=== PATIENT | female | born 1940 | race Caucasian/White ===

== ENCOUNTER → 2020-04-13 13:17 | Outpatient (BNVA) | payer MEDICARE, SELFPAY | PROVIDERS: PCP Internal Medicine; Referring Provider Internal Medicine; Visit Provider Student in an Organized Health Care Education/Training Program | DX: M32.8 Other forms of systemic lupus erythematosus (principal); R70.0 Elevated erythrocyte sedimentation rate; J84.10 Pulmonary fibrosis, unspecified; M25.50 Pain in unspecified joint | CPT/HCPCS: 99204 ==

== ENCOUNTER 2020-04-17 13:48 | Outpatient (REF) | payer MEDICARE, SELFPAY ==
--- NOTE | 2020-04-17 14:02 | XR_ITS ---
EXAMINATION: XR LUMBOSACRAL SPINE CLINICAL INFORMATION: Low back pain. COMPARISON: CT scan of the abdomen and pelvis dated 02/14/2020 TECHNIQUE: Three views of the lumbosacral spine. 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 Mild to moderate multilevel degenerative disc disease is seen, most pronounced at L3-L4 and L4-L5 without significant change. The vertebral bodies are intact. Mild to moderate multilevel marginal osteophyte formation is seen. The soft tissues are unremarkable. IMPRESSION: Transitional L5-S1 as detailed above. Mild to moderate multilevel degenerative changes. No acute abnormality or significant change.
[2020-04-17 16:55] LABS: Rheumatoid Factor < 15.0 IU/mL (<15.0)
[2020-04-19 13:11] LABS: Cyclic Citrullinated Peptide <16 UNITS
== END 2020-04-17 13:49 | disposition home or self-care (01) ==
LOC: HO.HMGCLDS 13:48
PROVIDERS: PCP Internal Medicine; Visit Provider Student in an Organized Health Care Education/Training Program
DX: M54.5 Low back pain (principal)
CPT/HCPCS: 36415; 72100; 86200; 86431

== ENCOUNTER → 2020-05-09 10:45 | Outpatient (BNVA) | payer MEDICARE, SELFPAY | PROVIDERS: PCP Internal Medicine; Referring Provider Internal Medicine; Visit Provider Student in an Organized Health Care Education/Training Program | DX: M32.8 Other forms of systemic lupus erythematosus (principal); J84.10 Pulmonary fibrosis, unspecified; M75.51 Bursitis of right shoulder; M25.50 Pain in unspecified joint | CPT/HCPCS: 99214 ==

== ENCOUNTER → 2020-06-19 10:01 | Outpatient (BNVA) | payer MEDICARE, SELFPAY | PROVIDERS: PCP Internal Medicine; Referring Provider Internal Medicine; Visit Provider Internal Medicine Cardiovascular Disease | DX: I25.10 Atherosclerotic heart disease of native coronary artery without angina pectoris (principal); I10 Essential (primary) hypertension; R06.02 Shortness of breath | CPT/HCPCS: 99212 ==

== ENCOUNTER 2020-08-08 11:33 | Outpatient (REF) | payer MEDICARE, SELFPAY ==
[2020-08-08 14:00] LABS: MANUAL DIFF FLAG NO
[2020-08-08 14:10] LABS: Basophils Absolute Auto 0.1 X10*3/uL (0.0-0.2); Basophils Percent Auto 0.7 % (0-2); Eosinophils Absolute Auto 0.4 X10*3/uL (0.0-0.4); Hematocrit 42.3 % (37-47); Hemoglobin 13.5 g/dl (12.0-16.0); Imm Gran Abs Auto 0.06 X10*3/uL (0.00-0.03); Imm Gran Pct Auto 0.5 % (0.0-0.4); Lymphocytes Absolute Auto 1.1 X10*3/uL (1.2-4.9); Lymphocytes Percent Auto 8.9 % (20-40); Mean Corpuscular HGB Conc 31.9 g/dl (31.0-35.0); Mean Corpuscular Hemoglobin 31.5 pg (27.0-33.0); Mean Corpuscular Volume 98.6 fL (80-98); Mean Platelet Volume 8.3 fL (9.4-12.3); Monocytes Absolute Auto 1.2 X10*3/uL (0.1-1.2); Monocytes Percent Auto 9.9 % (2-11); Neutrophils Absolute Auto 9.4 X10*3/uL (2.0-8.3); Platelet Count 340 X10*3/uL (160-400); Red Blood Count 4.29 X10*6/uL (4.20-5.50); Red Cell Distribution Width 13.3 % (11.0-16.0); White Blood Count 12.2 X10*3/uL (4.8-10.8)
[2020-08-08 14:25] LABS: Glucose Urine UA NEG (NEG); Leukocyte Esterase Urine NEG (NEG); Nitrite Urine NEG (NEG); PH 6.5 (5.0-8.0); Urine Blood NEG (NEG); Urine Ketones NEG (NEG); Urine Protein NEG (NEG-TRACE)
[2020-08-08 14:30] LABS: Appearance Urine CLEAR; Color Urine YELLOW
[2020-08-08 14:35] LABS: RBC Urine 0 /HPF (0); Renal Epithelial Cells Urine 1+ /LPF; Squamous Epithelial Cell Urine 1+ /LPF
[2020-08-08 15:02] LABS: Alanine Aminotransferase 11 U/L (0-31); Albumin Level 3.3 g/dL (3.5-5.0); Alkaline Phosphatase 76 U/L (39-117); Anion Gap 11 (12-20); Aspartate Amino Transferase 18 U/L (5-31); Bilirubin Total 0.4 mg/dL (0.0-1.0); Blood Urea Nitrogen 8 mg/dL (9-16); C Reactive Protein 2.28 mg/dL (< or = 0.50); Calcium 8.7 mg/dL (8.4-10.2); Carbon Dioxide 33 mmol/L (22-29); Chloride 96 mmol/L (96-108); Estimated Glomerular Filt Rate > 60; Glucose Fasting 124 mg/dL (60-99); Potassium 4.9 mmol/l (3.3-5.1); Sodium 135 mmol/L (135-145)
[2020-08-08 15:35] LABS: Erythrocyte Sedimentation Rate 38 MM/HR (0-20)
[2020-08-09 11:08] LABS: Anti DNA DS Antibody 2 IU/mL; SM/Ribonucleoprotein Ab <1.0 NEG AI (<1.0 NEG); Smith Protein <1.0 NEG AI (<1.0 NEG)
[2020-08-09 14:43] LABS: Complement C3 108 mg/dL (83-193)
== END 2020-08-08 11:34 | disposition home or self-care (01) ==
LOC: HO.LAB 11:33
PROVIDERS: PCP Internal Medicine; Visit Provider Student in an Organized Health Care Education/Training Program
DX: M32.8 Other forms of systemic lupus erythematosus (principal); J84.10 Pulmonary fibrosis, unspecified; I10 Essential (primary) hypertension; I25.10 Atherosclerotic heart disease of native coronary artery without angina pectoris; J44.9 Chronic obstructive pulmonary disease, unspecified; Z79.899 Other long term (current) drug therapy
CPT/HCPCS: 36415; 80053; 81001; 85025; 85652; 86038; 86039; 86140; 86160; 86225; 86235; 99212

== ENCOUNTER 2020-11-07 11:32 | Outpatient (REF) | payer MEDICARE, SELFPAY ==
[2020-11-07 13:02] LABS: MANUAL DIFF FLAG NO
[2020-11-07 13:08] LABS: Basophils Percent Auto 0.5 % (0-2); Eosinophils Absolute Auto 0.1 X10*3/uL (0.0-0.4); Eosinophils Percent Auto 1.3 % (0-4); Hematocrit 44.5 % (37-47); Hemoglobin 14.4 g/dl (12.0-16.0); Imm Gran Abs Auto 0.03 X10*3/uL (0.00-0.03); Imm Gran Pct Auto 0.4 % (0.0-0.4); Lymphocytes Absolute Auto 0.9 X10*3/uL (1.2-4.9); Lymphocytes Percent Auto 11.1 % (20-40); Mean Corpuscular HGB Conc 32.4 g/dl (31.0-35.0); Mean Corpuscular Hemoglobin 31.6 pg (27.0-33.0); Mean Corpuscular Volume 97.8 fL (80-98); Mean Platelet Volume 8.5 fL (9.4-12.3); Monocytes Absolute Auto 0.6 X10*3/uL (0.1-1.2); Neutrophils Absolute Auto 6.2 X10*3/uL (2.0-8.3); Neutrophils Percent Auto 78.7 % (45-73); Platelet Count 302 X10*3/uL (160-400); Red Blood Count 4.55 X10*6/uL (4.20-5.50); Red Cell Distribution Width 14.3 % (11.0-16.0); White Blood Count 7.9 X10*3/uL (4.8-10.8)
[2020-11-07 13:28] LABS: Alanine Aminotransferase 25 U/L (0-31); Albumin Level 3.2 g/dL (3.5-5.0); Alkaline Phosphatase 114 U/L (39-117); Anion Gap 11 (12-20); Aspartate Amino Transferase 43 U/L (5-31); Bilirubin Total 0.6 mg/dL (0.0-1.0); Blood Urea Nitrogen 17 mg/dL (9-16); C Reactive Protein 2.98 mg/dL (< or = 0.50); Calcium 8.9 mg/dL (8.4-10.2); Carbon Dioxide 36 mmol/L (22-29); Chloride 94 mmol/L (96-108); Estimated Glomerular Filt Rate > 60; Glucose Random 114 mg/dL (60-115); Potassium 4.5 mmol/L (3.3-5.1); Sodium 136 mmol/L (135-145); Total Protein 6.9 g/dL (6.5-8.0)
[2020-11-07 13:34] LABS: Glucose Urine UA NEG (NEG); Leukocyte Esterase Urine 2+ (NEG); Nitrite Urine NEG (NEG); Urine Blood TRACE (NEG); Urine Ketones NEG (NEG); Urine Protein 2+ MG/DL (NEG-TRACE)
[2020-11-07 13:43] LABS: Appearance Urine HAZY; Color Urine DARK YELLOW
[2020-11-07 13:46] LABS: Bacteria Urine 2+ /LPF; Mucus Urine 1+ /LPF; RBC Urine 0 /HPF (0); Squamous Epithelial Cell Urine 2+ /LPF; Triple Phosphate Crystal Urine 1+ /LPF; WBC Urine 50-75 /HPF (0-4)
[2020-11-07 14:34] LABS: Erythrocyte Sedimentation Rate 23 MM/HR (0-20)
[2020-11-08 10:27] LABS: Anti DNA DS Antibody 2 IU/mL; Scleroderma 70 Antibody <1.0 NEG AI (<1.0 NEG)
[2020-11-08 10:51] LABS: Anti-Centromere B Antibodies <1.0 NEG AI (<1.0 NEG)
[2020-11-08 13:21] LABS: Complement C3 102 mg/dL (83-193)
== END 2020-11-07 11:33 | disposition home or self-care (01) ==
LOC: HO.LAB 11:32
PROVIDERS: PCP Internal Medicine; Visit Provider Student in an Organized Health Care Education/Training Program
DX: J84.10 Pulmonary fibrosis, unspecified (principal); M32.8 Other forms of systemic lupus erythematosus; M81.0 Age-related osteoporosis without current pathological fracture; Z79.899 Other long term (current) drug therapy
CPT/HCPCS: 36415; 80053; 81001; 83520; 85025; 85652; 86038; 86140; 86160; 86225; 86235; 99212

== ENCOUNTER 2020-12-07 12:10 | Inpatient (IN) | payer MEDICARE, SELFPAY ==
[2020-12-07] VITALS (23 sets, daily range): BP systolic 87–131; BP diastolic 30–71; PULSE 32–76; RESP 9–17; TEMP 35.3–36.4; O2SAT 83–100; BMI 25.2; BMI 29.3
--- NOTE | ~2020-12-07 | XR_ITS ---
EXAMINATION: XR CHEST CLINICAL INFORMATION: Line placement COMPARISON: 12/07/2020 TECHNIQUE: Frontal view of the chest was obtained. FINDINGS: There is a new right internal jugular central venous catheter which terminates near the cavoatrial junction. Cardiac leads overlie the chest. Lung volumes are low. Bilateral diffuse airspace opacities are seen, similar to prior. Small pleural effusions. No pneumothorax. Cardiomediastinal silhouette is unchanged. XR/XR chest 1V IMPRESSION: There is a new right internal jugular central venous catheter terminating near the cavoatrial junction. No pneumothorax. Similar appearance of the lungs with diffuse bilateral opacities.
--- NOTE | ~2020-12-07 | XR_ITS ---
EXAMINATION: XR CHEST CLINICAL INFORMATION: Hypoxia COMPARISON: Previous chest x-ray most recent 12/10/[address] most recent 12/07/2020 TECHNIQUE: Frontal view of the chest was obtained. FINDINGS: The cardiac and mediastinal contours are stable. The lung volumes are low. There are increased interstitial markings suggestive of interstitial lung disease. This does not appear appreciably changed from previous exams. There are surgical clips seen in the left upper lung. There is blunting of both costophrenic angles laterally questionable for small bilateral pleural effusions. There is no pneumothorax. There is a right jugular line with tip projecting over the caval atrial junction. There are surgical clips in the right lateral neck. There are degenerative changes and scoliosis of the spine. XR/XR chest 1V IMPRESSION: Low lung volumes. Interstitial lung disease. No change from previous exams.
--- NOTE | ~2020-12-07 | US_ITS ---
EXAMINATION: US VENOUS ULTRASOUND WITH DOPPLER LOWER EXTREMITY, BILATERAL CLINICAL INFORMATION: Swelling COMPARISON: None TECHNIQUE: Ultrasound of the deep veins is performed from the hip to the calf with compression sonography and color and pulse Doppler assessment. Spectral analysis with color-flow imaging is performed. Exam was performed portably in the ICU. Exam is limited due to swelling. FINDINGS: RIGHT: There is normal venous compression and respiratory variation and augmented flow. The visualized common femoral vein, superficial femoral vein, profunda femoral vein, and popliteal vein shows no evidence of deep venous thrombosis. The right calf veins are not visualized. There is no significant popliteal fossa cyst. LEFT: There is normal venous compression and respiratory variation and augmented flow. The visualized common femoral vein, superficial femoral vein, profunda femoral vein, popliteal vein, and the left posterior tibial vein shows no evidence of deep venous thrombosis. The left peroneal vein is not visualized. There is no significant popliteal fossa cyst. If the patient's symptoms persist, followup ultrasound in 5 days 7 days might be of value to exclude proximal propagation from a non-visualized calf vein. US/US venous duplex LE BI IMPRESSION: Limited exam. No DVT demonstrated in the bilateral lower extremity. The right posterior tibial and peroneal veins and left peroneal vein in the calves were not visualized.
--- NOTE | ~2020-12-07 | CT_ITS ---
EXAMINATION: CT HEAD WITHOUT CONTRAST CLINICAL INFORMATION: Weakness COMPARISON: CTA head and neck 01/12/2019, CT head noncontrast 01/06/2020 TECHNIQUE: Contiguous axial imaging was performed from the skull base to vertex without intravenous administration of contrast. Additional 2-D coronal and sagittal reformatted images are generated on the CT workstation and uploaded to PACS. This CT examination was performed using dose optimization techniques as appropriate, variously including the following: *Automated exposure control *Adjustment of mA and/or kV according to patient size (this includes techniques or standardized protocols for targeted exams where dose is matched to indication/reason for exam; i.e. extremities or head) *Use of iterative reconstruction technique DLP: 643 mGy-cm FINDINGS: There is no intracranial hemorrhage, hematoma, or extra-axial fluid collection. The ventricles are normal in size. There is no hydrocephalus, edema, or mass effect. There is periventricular white matter gliosis is again noted consistent with small vessel ischemic changes. There is no mass effect or edema. There is no visible acute territorial infarct or mass lesion. The calvarium appears intact. There is no pneumocephalus or orbital emphysema. The visualized sinuses and middle ears and mastoid air cells show no significant mucosal thickening. There are no air-fluid levels. CT/CT head/brain wo con IMPRESSION: No acute intracranial abnormality.
--- NOTE | ~2020-12-07 | XR_ITS ---
EXAMINATION: XR CHEST CLINICAL INFORMATION: Shortness breath COMPARISON: February 14, 2020 and studies dating back to October 13, 2015 TECHNIQUE: 2 views of the chest were obtained. FINDINGS: There are again noted to be regions of chronic interstitial disease and scarring bilaterally without significant change from previous study of February 14, 2020. Pleural parenchymal disease is seen at the lung bases with no definite new large pleural effusion. No pneumothorax. Patient status post right neck surgery as well as left upper lobe surgery. XR/XR chest 2V IMPRESSION: Diffuse lung disease similar to appearance to previous study representing chronic interstitial lung disease and scarring. Superimposed region of acute disease not excluded.
--- NOTE | ~2020-12-07 | CT_ITS ---
EXAMINATION: CT ANGIOGRAM OF THE CHEST WITH AND WITHOUT CONTRAST (CT PULMONARY ANGIOGRAM FOR PE) CLINICAL INFORMATION: Reason for Exam r/o pe, sob, hypoxia COMPARISON: None TECHNIQUE: Prior to contrast administration, noncontrast localization images were obtained. Subsequently, multidetector volumetric imaging was performed from the thoracic inlet to below the diaphragms following the administration of 80 mL Omnipaque 350 intravenous contrast. No contrast reaction reported Sagittal, coronal, and MIP oblique sagittal reformatted images were obtained on the CT workstation, uploaded to PACS, and reviewed. This CT examination was performed using dose optimization techniques as appropriate, variously including the following: *Automated exposure control *Adjustment of mA and/or kV according to patient size (this includes techniques or standardized protocols for targeted exams where dose is matched to indication/reason for exam; i.e. extremities or head) *Use of iterative reconstruction technique Total exam dose-length product 393 mGy-cm FINDINGS: QUALITY OF STUDY/CONTRAST BOLUS: Satisfactory. PULMONARY ARTERIES: No central or segmental pulmonary emboli. THORACIC AORTA: No aneurysm or dissection. LUNG: The lungs are emphysematous with diffuse patchy groundglass opacity seen throughout both lungs with increased interstitial thickening and clear chronic interstitial edema, scarring. There is honeycombing visualized in both lower lobes. Superimposed pneumonitis cannot be excluded. These findings have progressed since 02/14/2020 PLEURA: There is moderate right and small left pleural effusion. MEDIASTINUM: The heart size is enlarged. No pericardial effusion. No hilar or mediastinal lymphadenopathy. No evidence of septal bowing or right heart strain. CHEST WALL/AXILLA: No axillary or internal mammary lymphadenopathy. OSSEOUS STRUCTURES: No acute or suspicious osseous abnormality. UPPER ABDOMEN: Unremarkable. No reflux of contrast into the hepatic veins to suggest elevated right heart pressures. CT/CT angio chest PE protocol IMPRESSION: No evidence of PE. Emphysema with chronic interstitial thickening unchanged to previous exam from 2019. There is diffuse groundglass opacity likely superimposed inflammatory infectious etiology. Interstitial pneumonitis is not excluded. There is a moderate right and small to moderate left pleural effusion. VTE: Negative
--- NOTE | ~2020-12-07 | XR_ITS ---
EXAMINATION: XR CHEST CLINICAL INFORMATION: SOB COMPARISON: Chest 12/08/2020 TECHNIQUE: Frontal view of the chest was obtained. FINDINGS: The lungs are hypoexpanded with diffuse bilateral patchy opacities. In addition there is bibasilar haziness question effusion or pleural thickening. There are postsurgical sutures left upper lobe and ping in the right neck. Heart size is normal. Pulmonary vascularity is normal. A right jugular central catheter overlies the atriocaval junction. No gross bony abnormality. XR/XR chest 1V IMPRESSION: Diffuse bilateral opacities, bibasilar haziness and right central catheter tip is stable and unchanged Some postsurgical changes are stable as well.
--- NOTE | 2020-12-07 12:24 | ECG_ITS ---
Test Reason : WEAKNESS Blood Pressure : / mmHG Vent. 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
--- NOTE | 2020-12-07 12:25 | ED.GENADULT ---
HPI - General Adult General Chief complaint: Weakness <Mj Haile NP - Last Filed: 12/07/20 19:16> Stated complaint: WEAKNESS <Mj Haile NP - Last Filed: 12/07/20 19:16> Time Seen by Provider: 12/07/20 12:24 <Mj Haile NP - Last Filed: 12/07/20 19:16> Source: EMS <Mj Haile NP - Last Filed: 12/07/20 19:16> Mode of arrival: EMS <Mj Haile NP - Last Filed: 12/07/20 19:16> Limitations: no limitations <Mj Haile NP - Last Filed: 12/07/20 19:16> History of Present Illness HPI narrative: 80-year-old female with a past medical history of pulmonary fibrosis, SLE, Raynaud's disease, aortic stenosis, coronary artery disease being medically managed only, COPD seizure disorder, HTN, HLD, OA here with complaints of generalized weakness for the last week with acute on chronic shortness of breath. She has a cough which he tells me is chronic. No fevers, chills or chest pain. She does feel that she has some swelling in both legs but denies any weight gain. On arrival RA saturation 83%. Of note, patient has significant CAD not amenable to stenting followed by Dr Escobar at [facility]. <Mj Haile NP - Last Filed: 12/07/20 19:16> Onset (ago): week(s) <Mj Haile NP - Last Filed: 12/07/20 19:16> Related Data Home medications: Home Medications Medication Instructions Recorded Confirmed aspirin 81 mg tablet,delayed 81 mg PO DAILY 04/12/20 12/07/20 release loratadine 10 mg tablet 10 mg PO DAILY 04/12/20 12/07/20 metoprolol succinate 100 mg 100 mg PO DAILY 04/12/20 12/07/20 tablet,extended release 24 hr isosorbide mononitrate 60 mg 60 mg PO DAILY tab 04/13/20 12/07/20 tablet,extended release 24 hr fluticasone fur. 100 mcg-umeclid 1 inh INHALATION DAILY 10/12/20 05/27/21 62.5 mcg-vilant 25 mcg inhalat.powder phenobarbital 100 mg tablet 100 mg PO BEDTIME 05/09/20 12/07/20 albuterol sulfate 2.5 mg INHALATION TID PRN 12/07/20 12/07/20 atorvastatin 80 mg PO BEDTIME 12/07/20 12/07/20 benzonatate 1 cap PO TID PRN 12/07/20 12/07/20 ezetimibe [Zetia] 10 mg PO BEDTIME 12/07/20 12/07/20 gabapentin 100 mg PO TID 12/07/20 12/07/20 meclizine [Dramamine Less Drowsy] 25 mg PO DAILY PRN 12/07/20 12/07/20 Previous Rx's Medication Instructions Recorded fluticasone propionate 50 1 spray INTRANASAL DAILY #16 g 09/21/20 mcg/actuation nasal spray,suspension ranolazine 500 mg tablet,extended 1,000 mg PO BID 90 Days #360 tab 09/21/20 release,12 hr albuterol sulfate 90 mcg/actuation 2 inh INHALATION Q4-6H PRN #1 ea 12/05/20 breath activated powder inhaler omeprazole magnesium 20 mg 20 mg PO DAILY #90 cap 12/05/20 capsule,delayed release <Mj Haile NP - Last Filed: 12/07/20 19:16> Allergies/adverse reactions: Allergies Allergy/AdvReac Type Severity Reaction Status Date / Time morphine [MORPHINE] Allergy Severe NAUSEA & Verified 11/07/20 11:39 VOMITING, vomiting <Mj Haile NP - Last Filed: 12/07/20 19:16> Review of Systems Review of Systems: Yes all other systems are reviewed and are negative <Mj Haile NP - Last Filed: 12/07/20 19:16> Constitutional: Constitutional: Reports no additional constitutional complaints, Denies body ache(s), Denies chills, Denies fever(s), Denies headache(s) and Reports weakness <Mj Haile NP - Last Filed: 12/07/20 19:16> Eyes: Eyes: Reports no additional eye complaints and Denies change in vision <YOLIS Michelle Last Filed: 12/07/20 19:16> ENT: Reports system reviewed and no additional complaints, except as documented, Denies dizziness, Denies headache(s), Denies nasal congestion, Denies nasal discharge and Denies neck pain <Mj Haile NP - Last Filed: 12/07/20 19:16> Cardiovascular: Cardiovascular: Reports no additional cardiovascular complaints, Denies chest pain, Denies leg edema and Reports dyspnea <Mj Haile NP - Last Filed: 12/07/20 19:16> Respiratory: Respiratory: Reports no additional respiratory complaints, Reports cough and Reports dyspnea <Mj Haile NP - Last Filed: 12/07/20 19:16> Gastrointestinal: Gastrointestinal: Reports no additional gastrointestinal complaints, Denies abdominal pain, Denies diarrhea, Denies nausea and Denies vomiting <Mj Haile NP - Last Filed: 12/07/20 19:16> Genitourinary: Genitourinary: Reports no additional female genitourinary complaints and Denies urinary incontinence <Mj Haile NP - Last Filed: 12/07/20 19:16> Musculoskeletal: Musculoskeletal: Reports no additional musculoskeletal complaints, Denies back pain, Denies arthralgias, Denies joint swelling, Denies neck pain, Denies numbness and Denies tingling <Mj Haile NP - Last Filed: 12/07/20 19:16> Integumentary/Breasts: Skin/Breast: Reports system reviewed and no additional complaints, except as docu and Denies rash <Mj Haile NP - Last Filed: 12/07/20 19:16> Neurologic: Reports system reviewed and no additional complaints, except as documented, Denies Abnormal speech present, Denies dizziness, Denies headache(s), Denies numbness, Denies tingling and Reports weakness <Mj Haile NP - Last Filed: 12/07/20 19:16> PMFSH Past Medical History Medical History: Medical History Aortic stenosis CAD (coronary artery disease) Chronic stable angina COPD (chronic obstructive pulmonary disease) Epilepsy HTN (hypertension) Hypercholesterolemia Interstitial lung disease Osteoarthritis Raynauds phenomenon Squamous carcinoma Stenosis of right carotid artery <Mj Haile NP - Last Filed: 12/07/20 19:16> Surgical History: Surgical History H/O colonoscopy History of ankle surgery History of bunionectomy History of cardiac cath History of carotid endarterectomy <Mj Haile NP - Last Filed: 12/07/20 19:16> Family History Family History: Family History Father COPD (chronic obstructive pulmonary disease) CVD (cardiovascular disease) Mother ESRD (end stage renal disease) CVD (cardiovascular disease) Brother No problems noted. Brother No problems noted. Daughter No problems noted. Son No problems noted. Sister No problems noted. <jM Haile NP - Last Filed: 12/07/20 19:16> Social History Social History: Social History Housing: House Are you a primary vp care management to a significant other at home: No Do you presently have visiting nurse or other home services: No Alcohol intake: never Patient Tobacco Use Status: Never used Tobacco Second Hand Smoke Exposure: Yes Use of substances other than those prescribed or required for medical reasons: No Advance Directives: No Advance Directives Information Provided: Yes Current occupational status: retired Gender identity: female <Mj Haile NP - Last Filed: 12/07/20 19:16> Physical Exam Vital Signs: Vital Signs: Last Vital Signs Temp 95.7 F L 12/07/20 19:03 Pulse 32 L 12/07/20 19:13 Resp 14 12/07/20 19:03 BP 88/32 L 12/07/20 19:13 Pulse Ox 100 12/07/20 19:03 Body Mass Index 25.2 <Mj Haile NP - Last Filed: 12/07/20 19:16> Vital Signs: Last Vital Signs Temp 95.7 F L 12/07/20 19:03 Pulse 32 L 12/07/20 19:13 Resp 14 12/07/20 19:03 BP 88/32 L 12/07/20 19:13 Pulse Ox 100 12/07/20 19:03 Body Mass Index 25.2 <Kavon Barksdale MD - Last Filed: 12/07/20 19:07> Const: Other: lethargic, rouses to verbal <Mj Haile NP - Last Filed: 12/07/20 19:16> Orientation/consciousness: patient oriented x3 <Mj Haile NP - Last Filed: 12/07/20 19:16> Limitations: no limitations <Mj Haile NP - Last Filed: 12/07/20 19:16> HENMT: Head: Yes normal to inspection <Mj Haile NP - Last Filed: 12/07/20 19:16> Ears: hearing grossly normal bilaterally <Mj Haile NP - Last Filed: 12/07/20 19:16> General nose exam: Normal external nose present <Mj Haile NP - Last Filed: 12/07/20 19:16> Face and sinus: Yes normal facial exam <Mj Haile NP - Last Filed: 12/07/20 19:16> Mouth: Normal oral and palatal mucosa present <Mj Haile NP - Last Filed: 12/07/20 19:16> Throat: Yes posterior oropharynx normal <Mj Haile NP - Last Filed: 12/07/20 19:16> Eyes: General: appearance normal, both eyes and all related structures <Mj Haile NP - Last Filed: 12/07/20 19:16> Pupils: Equal, round and reactive pupils present <Mj Haile NP - Last Filed: 12/07/20 19:16> Neck: Neck: Yes normal visual inspection <Mj Haile NP - Last Filed: 12/07/20 19:16> Chest: Chest palpation & inspection: normal inspection of the chest <Mj Haile NP - Last Filed: 12/07/20 19:16> Resp: Other: Coarse breath sounds throughout all chavez <Mj Haile NP - Last Filed: 12/07/20 19:16> Effort & Inspection: normal respiratory effort <Mj Haile NP - Last Filed: 12/07/20 19:16> Cardio: Rate: regular rate <Mj Haile NP - Last Filed: 12/07/20 19:16> Rhythm: regular rhythm <Mj Haile NP - Last Filed: 12/07/20 19:16> Peripheral pulses: Peripheral pulses 2+ throughout <Mj Haile [employer] - Last Filed: 12/07/20 19:16> GI: Inspection: Yes normal to inspection <Mj Haile NP - Last Filed: 12/07/20 19:16> Palpation (GI): Soft to palpation and nontender <Mj Haile [employer] - Last Filed: 12/07/20 19:16> Auscultation: normal bowel sounds <Mj Haile NP - Last Filed: 12/07/20 19:16> Back/Spine/Pelvis: Thoracic/Lumbar Spine: thoracic and lumbar spine normal to inspection <Mj Haile [employer] - Last Filed: 12/07/20 19:16> Skin: General skin exam: no rashes or lesions noted <Mj Haile NP - Last Filed: 12/07/20 19:16> Neuro: General: patient oriented x3, no focal motor deficits and normal sensation to monofilament <Mj Haile NP - Last Filed: 12/07/20 19:16> Cranial nerves: Yes Equal, round and reactive pupils present <Mj Haile NP - Last Filed: 12/07/20 19:16> Cognition (Neuro): normal cognition <Mj Haile NP - Last Filed: 12/07/20 19:16> Speech: No Abnormal speech present <Mj Haile NP - Last Filed: 12/07/20 19:16> Gait exam (Neuro): Normal gait present <Mj Haile NP - Last Filed: 12/07/20 19:16> Motor exam (neuro): 5/5 motor strength present throughout <Mj Haile NP - Last Filed: 12/07/20 19:16> Extrem: Other: Fingers and toes consistent with Raynaud's disease Patient has some lower extremity swelling which is nonpitting <Mj Haile NP - Last Filed: 12/07/20 19:16> General: Yes normal to inspection and Yes no calf tenderness <Mj Haile NP - Last Filed: 12/07/20 19:16> Course Course Course Narrative: 72-year-old female here with generalized weakness, acute on chronic shortness of breath the last week. On arrival she is noted to be hypoxic with room air saturation of 83%. Coarse breath sounds throughout. Lethargic but oriented x 3, following commands with no overt neuro deficits. Will need labs, chest x-ray, EKG, CT head. 1600-Called into the room by nursing as patient was more lethargic with oxygen saturations decreasing to 89% on 3L NC. Having difficulty obtaining labs per nursing. Went to see the patient. She is lethargic but does follow commands and is able to tell me who she is and where she is. She is profoundly weak with a temp of 95.8 and very lethargic. Checked BG and hypoglycemic 41. Respiratory at bedside to obtain ABG. Nursing to straight cath urine. Multiple attempts by myself and Dr Ferreira to obtain peripheral IV access as well as an EJ but unsuccessful. Able to obtain ultrasound IV to the left AC and labs were drawn and sent. Given 2 amps of dextrose, calcium gluconate 2gIV, gentle hydration d/t concern for fluid overload w/crackles, hypoxia, pedal edema. LOW BP not from infection but multifactorial from dehydration, hypoglycemia. Oxygen saturation improved on 100% NRB. Mental status improved with blood glucose improving s/p dextrose. ABG c/w with metabolic acidosis which is c/w with acute on chronic hypercarbia with hypoxic respiratory failure. Attempting to contact family to determine code status. 1625-At this time infection is suspected. Blood cultures and lactic acid have been sent. Antibiotics ordered. Dr Garcia from ICU at bedside to evaluate patient. Bedside US done. Recommended placing central line for dopamine for intropic effects as patient is bradycardic 54 likely secondary to metoprolol. Will need CTA to r/o PE if renal function allows, bilateral venous US. 1645-Daughter Christopher at the bedside who signed consent form for central line placement. Verbal confirmation from family. Central line placed by Dr Barksdale at the bedside. Daughter tells me she believes the patient is a DNR/DNI but does not have MOLST. who lives with the patient but what sounds like has underlying dementia wishes patient to be full code. The daughter tells me she needs to speak to her brother and father together in conjunction with her mom to make a decision about advance directives. Unfortunately, they are unclear even with who the health care proxy is. 1745-Brought direct to CT with nursing and Dr Garcia. 1800-Brought back to room. Dr Hu accepting patient to ICU. 1900-Signed MOLST for DNR/DNI after verbal discussion with HCP and daughter christopher. They are aware patient is critically ill. <Mj Haile NP - Last Filed: 12/07/20 19:16> Procedures Central Line Placement Right IJ: Time Out Performed: Yes <Kavon Barksdale MD - Last Filed: 12/07/20 19:07> Patient Placed on Monitor/Pulse Ox: Yes <Kavon Barksdale MD - Last Filed: 12/07/20 19:07> Prep: mask, gown and gloves <Kavon Barksdale MD - Last Filed: 12/07/20 19:07> Central Line Prep: Chlorhexidine scrub and sterile drapes applied <Kavon Barksdale MD - Last Filed: 12/07/20 19:07> Local Anesthetic: lidocaine 1% <Kavon Barksdale MD - Last Filed: 12/07/20 19:07> Amount of anesthesia used (mL): 2 <Kavon Barksdale MD - Last Filed: 12/07/20 19:07> Ultrasound Used for Placement: Yes <aKvon Barksdale MD - Last Filed: 12/07/20 19:07> Central Line Lumen Inserted: single <Kavon Barksdale MD - Last Filed: 12/07/20 19:07> Post Procedure: good blood return, all ports aspirated, flushed, capped and sterile dressing applied <Kavon Barksdale MD - Last Filed: 12/07/20 19:07> Post Procedure X-Ray: other (Patient needed CT angio of the chest for rule out PE, the catheter position in satisfactory position.) <Kavon Barksdale MD - Last Filed: 12/07/20 19:07> Patient Tolerated Procedure: well <Kavon Barksdale MD - Last Filed: 12/07/20 19:07> Complications: none <Kavon Barksdale MD - Last Filed: 12/07/20 19:07> Medical Decision Making Medical Records Medical records reviewed: Yes I reviewed the patient's medical records. <Mj Haile NP - Last Filed: 12/07/20 19:16> Lab Data Lab results reviewed: Yes I reviewed the patient's lab results. <Mj Haile NP - Last Filed: 12/07/20 19:16> Result diagrams: : 12/07/20 12:53 12/07/20 16:22 <Mj Haile NP - Last Filed: 12/07/20 19:16> Labs: Lab Results 12/07/20 12/07/20 12/07/20 Range/Units 12:46 12:52 12:53 WBC 13.0 H (4.8-10.8) X10*3/uL RBC 4.87 (4.20-5.50) X10*6/uL Hgb 15.7 (12.0-16.0) g/dl Hct 47.1 H (37-47) % MCV 96.7 (80-98) fL MCH 32.2 (27.0-33.0) pg MCHC 33.3 (31.0-35.0) g/dl RDW 14.6 (11.0-16.0) % Plt Count 284 (160-400) X10*3/uL MPV 9.4 (9.4-12.3) fL Immature Gran % (Auto) 0.9 H (0.0-0.4) % Neut % (Auto) 80.9 H (45-73) % Lymph % (Auto) 6.6 L (20-40) % Florence % (Auto) 11.3 H (2-11) % Eos % (Auto) 0.0 (0-4) % Baso % (Auto) 0.3 (0-2) % Lymph # (Auto) 0.9 L (1.2-4.9) X10*3/uL Florence # (Auto) 1.5 H (0.1-1.2) X10*3/uL Eos # (Auto) 0.0 (0.0-0.4) X10*3/uL Baso # (Auto) 0.0 (0.0-0.2) X10*3/uL Abs Immat Gran (auto) 0.12 H (0.00-0.03) X10*3/uL Absolute Neuts (auto) 10.5 H (2.0-8.3) X10*3/uL Absolute Nucleated RBC 0.000 (0.0-0.012) X10*3/uL Nucleated RBC % (auto) 0.0 (0.0-0.2) /100WBC PT (10.8-13.0) SEC INR (0.9-1.1) D-Dimer NG/ML O2 Saturation % ABG pH at Pt Temp (7.35-7.45) ABG pH (Temp Correct) (7.35-7.45) ABG pCO2 at Pt Temp (32-45) mmHg ABG pCO2 (Temp Corrct (32-45) mmHg ABG pO2 at Pt Temp (83-108) mmHg ABG pO2 (Temp Correct (83-108) ABG HCO3 (22-26) mmol/L ABG Base Excess (Actual) mmol/L VBG pH (7.32-7.43) VBG pCO2 mmHg VBG pO2 mmHg VBG HCO3 (22-26) mmol/L VBG O2 Saturation % VBG Base Excess mmol/L Sodium (135-145) mmol/L Potassium (3.3-5.1) mmol/L Chloride (96-108) mmol/L Carbon Dioxide (22-29) mmol/L Anion Gap (12-20) BUN (9-16) mg/dL Creatinine (0.5-1.4) mg/dL Estim Creat Clear Calc Estimated GFR POC Glucose (60-115) mg/dL Random Glucose (60-115) mg/dL Lactic Acid 2.5 H* (0.5-2.0) mmol/L Lactic Acid Fup @ 2Hr (0.5-2.0) mmol/L Calcium (8.4-10.2) mg/dL Magnesium (1.6-2.6) mg/dL Total Bilirubin (0.0-1.0) mg/dL Direct Bilirubin (0.0-0.5) mg/dL AST (5-31) U/L ALT (0-31) U/L Alkaline Phosphatase (39-117) U/L Total Creatine Kinase (26-140) U/L Troponin I High Sens (<3.5-17.0) ng/L B-Natriuretic Peptide (<100) pg/mL Total Protein (6.5-8.0) g/dL Albumin (3.5-5.0) g/dL Urine Color Urine Appearance Urine pH (5.0-8.0) Ur Specific [place] (1.005-1.025) Urine Protein (NEG-TRACE) MG/DL Urine Glucose (UA) (NEG) MG/DL Urine Ketones (NEG) MG/DL Urine Blood (NEG) Urine Nitrite (NEG) Ur Leukocyte Esterase (NEG) Urine RBC (0) /HPF Urine WBC (0-4) /HPF Ur Squamous Epith Cells /LPF Urine Bacteria /LPF Hyaline Casts /LPF Urine Mucus /LPF COVID-19 ([facility]ASWANT) Negative (Negative) COVID-19 Clin Com See Note 12/07/20 12/07/20 12/07/20 Range/Units 12:53 15:59 16:03 WBC (4.8-10.8) X10*3/uL RBC (4.20-5.50) X10*6/uL Hgb (12.0-16.0) g/dl Hct (37-47) % MCV (80-98) fL MCH (27.0-33.0) pg MCHC (31.0-35.0) g/dl RDW (11.0-16.0) % Plt Count (160-400) X10*3/uL MPV (9.4-12.3) fL Immature Gran % (Auto) (0.0-0.4) % Neut % (Auto) (45-73) % Lymph % (Auto) (20-40) % Florence % (Auto) (2-11) % Eos % (Auto) (0-4) % Baso % (Auto) (0-2) % Lymph # (Auto) (1.2-4.9) X10*3/uL Florence # (Auto) (0.1-1.2) X10*3/uL Eos # (Auto) (0.0-0.4) X10*3/uL Baso # (Auto) (0.0-0.2) X10*3/uL Abs Immat Gran (auto) (0.00-0.03) X10*3/uL Absolute Neuts (auto) (2.0-8.3) X10*3/uL Absolute Nucleated RBC (0.0-0.012) X10*3/uL Nucleated RBC % (auto) (0.0-0.2) /100WBC PT (10.8-13.0) SEC INR (0.9-1.1) D-Dimer NG/ML O2 Saturation 99.0 % ABG pH at Pt Temp 7.28 L (7.35-7.45) ABG pH (Temp Correct) 7.29 L (7.35-7.45) ABG pCO2 at Pt Temp 66 H* (32-45) mmHg ABG pCO2 (Temp Corrct 65 H* (32-45) mmHg ABG pO2 at Pt Temp 171 H (83-108) mmHg ABG pO2 (Temp Correct 168 H (83-108) ABG HCO3 31 H (22-26) mmol/L ABG Base Excess (Actual) 2.7 mmol/L VBG pH (7.32-7.43) VBG pCO2 mmHg VBG pO2 mmHg VBG HCO3 (22-26) mmol/L VBG O2 Saturation % VBG Base Excess mmol/L Sodium (135-145) mmol/L Potassium (3.3-5.1) mmol/L Chloride (96-108) mmol/L Carbon Dioxide (22-29) mmol/L Anion Gap (12-20) BUN (9-16) mg/dL Creatinine (0.5-1.4) mg/dL Estim Creat Clear Calc Estimated GFR POC Glucose 41 L* (60-115) mg/dL Random Glucose (60-115) mg/dL Lactic Acid (0.5-2.0) mmol/L Lactic Acid Fup @ 2Hr (0.5-2.0) mmol/L Calcium (8.4-10.2) mg/dL Magnesium (1.6-2.6) mg/dL Total Bilirubin (0.0-1.0) mg/dL Direct Bilirubin (0.0-0.5) mg/dL AST (5-31) U/L ALT (0-31) U/L Alkaline Phosphatase (39-117) U/L Total Creatine Kinase (26-140) U/L Troponin I High Sens 20.6 H* (<3.5-17.0) ng/L B-Natriuretic Peptide 1498 H (<100) pg/mL Total Protein (6.5-8.0) g/dL Albumin (3.5-5.0) g/dL Urine Color Urine Appearance Urine pH (5.0-8.0) Ur Specific [place] (1.005-1.025) Urine Protein (NEG-TRACE) MG/DL Urine Glucose (UA) (NEG) MG/DL Urine Ketones (NEG) MG/DL Urine Blood (NEG) Urine Nitrite (NEG) Ur Leukocyte Esterase (NEG) Urine RBC (0) /HPF Urine WBC (0-4) /HPF Ur Squamous Epith Cells /LPF Urine Bacteria /LPF Hyaline Casts /LPF Urine Mucus /LPF COVID-19 ([facility]) (Negative) COVID-19 Clin Com 12/07/20 12/07/20 12/07/20 Range/Units 16:15 16:22 16:22 WBC (4.8-10.8) X10*3/uL RBC (4.20-5.50) X10*6/uL Hgb (12.0-16.0) g/dl Hct (37-47) % MCV (80-98) fL MCH (27.0-33.0) pg MCHC (31.0-35.0) g/dl RDW (11.0-16.0) % Plt Count (160-400) X10*3/uL MPV (9.4-12.3) fL Immature Gran % (Auto) (0.0-0.4) % Neut % (Auto) (45-73) % Lymph % (Auto) (20-40) % [place] % (Auto) (2-11) % Eos % (Auto) (0-4) % Baso % (Auto) (0-2) % Lymph # (Auto) (1.2-4.9) X10*3/uL [place] # (Auto) (0.1-1.2) X10*3/uL Eos # (Auto) (0.0-0.4) X10*3/uL Baso # (Auto) (0.0-0.2) X10*3/uL Abs Immat Gran (auto) (0.00-0.03) X10*3/uL Absolute Neuts (auto) (2.0-8.3) X10*3/uL Absolute Nucleated RBC (0.0-0.012) X10*3/uL Nucleated RBC % (auto) (0.0-0.2) /100WBC PT 19.1 H (10.8-13.0) SEC INR 1.6 H (0.9-1.1) D-Dimer 635 NG/ML O2 Saturation % ABG pH at Pt Temp (7.35-7.45) ABG pH (Temp Correct) (7.35-7.45) ABG pCO2 at Pt Temp (32-45) mmHg ABG pCO2 (Temp Corrct (32-45) mmHg ABG pO2 at Pt Temp (83-108) mmHg ABG pO2 (Temp Correct (83-108) ABG HCO3 (22-26) mmol/L ABG Base Excess (Actual) mmol/L VBG pH (7.32-7.43) VBG pCO2 mmHg VBG pO2 mmHg VBG HCO3 (22-26) mmol/L VBG O2 Saturation % VBG Base Excess mmol/L Sodium 126 L (135-145) mmol/L Potassium 5.4 H (3.3-5.1) mmol/L Chloride 87 L (96-108) mmol/L Carbon Dioxide 28 (22-29) mmol/L Anion Gap 16 (12-20) BUN 29 H D (9-16) mg/dL Creatinine 0.86 (0.5-1.4) mg/dL Estim Creat Clear Calc 52.4 Estimated GFR > 60 POC Glucose 42 L* (60-115) mg/dL Random Glucose 210 H D (60-115) mg/dL Lactic Acid (0.5-2.0) mmol/L Lactic Acid Fup @ 2Hr (0.5-2.0) mmol/L Calcium 8.0 L D (8.4-10.2) mg/dL Magnesium 1.8 (1.6-2.6) mg/dL Total Bilirubin 0.7 (0.0-1.0) mg/dL Direct Bilirubin 0.5 (0.0-0.5) mg/dL AST 636 H (5-31) U/L ALT 416 H (0-31) U/L Alkaline Phosphatase 135 H (39-117) U/L Total Creatine Kinase (26-140) U/L Troponin I High Sens (<3.5-17.0) ng/L B-Natriuretic Peptide (<100) pg/mL Total Protein 5.6 L (6.5-8.0) g/dL Albumin 2.4 L D (3.5-5.0) g/dL Urine Color Urine Appearance Urine pH (5.0-8.0) Ur Specific [place] (1.005-1.025) Urine Protein (NEG-TRACE) MG/DL Urine Glucose (UA) (NEG) MG/DL Urine Ketones (NEG) MG/DL Urine Blood (NEG) Urine Nitrite (NEG) Ur Leukocyte Esterase (NEG) Urine RBC (0) /HPF Urine WBC (0-4) /HPF Ur Squamous Epith Cells /LPF Urine Bacteria /LPF Hyaline Casts /LPF Urine Mucus /LPF COVID-19 ([facility]) (Negative) COVID-19 Clin Com 12/07/20 12/07/20 12/07/20 Range/Units 16:22 16:23 16:23 WBC (4.8-10.8) X10*3/uL RBC (4.20-5.50) X10*6/uL Hgb (12.0-16.0) g/dl Hct (37-47) % MCV (80-98) fL MCH (27.0-33.0) pg MCHC (31.0-35.0) g/dl RDW (11.0-16.0) % Plt Count (160-400) X10*3/uL MPV (9.4-12.3) fL Immature Gran % (Auto) (0.0-0.4) % Neut % (Auto) (45-73) % Lymph % (Auto) (20-40) % [place] % (Auto) (2-11) % Eos % (Auto) (0-4) % Baso % (Auto) (0-2) % Lymph # (Auto) (1.2-4.9) X10*3/uL [place] # (Auto) (0.1-1.2) X10*3/uL Eos # (Auto) (0.0-0.4) X10*3/uL Baso # (Auto) (0.0-0.2) X10*3/uL Abs Immat Gran (auto) (0.00-0.03) X10*3/uL Absolute Neuts (auto) (2.0-8.3) X10*3/uL Absolute Nucleated RBC (0.0-0.012) X10*3/uL Nucleated RBC % (auto) (0.0-0.2) /100WBC PT (10.8-13.0) SEC INR (0.9-1.1) D-Dimer NG/ML O2 Saturation % ABG pH at Pt Temp (7.35-7.45) ABG pH (Temp Correct) (7.35-7.45) ABG pCO2 at Pt Temp (32-45) mmHg ABG pCO2 (Temp Corrct (32-45) mmHg ABG pO2 at Pt Temp (83-108) mmHg ABG pO2 (Temp Correct (83-108) ABG HCO3 (22-26) mmol/L ABG Base Excess (Actual) mmol/L VBG pH (7.32-7.43) VBG pCO2 mmHg VBG pO2 mmHg VBG HCO3 (22-26) mmol/L VBG O2 Saturation % VBG Base Excess mmol/L Sodium (135-145) mmol/L Potassium (3.3-5.1) mmol/L Chloride (96-108) mmol/L Carbon Dioxide (22-29) mmol/L Anion Gap (12-20) BUN (9-16) mg/dL Creatinine (0.5-1.4) mg/dL Estim Creat Clear Calc Estimated GFR POC Glucose (60-115) mg/dL Random Glucose (60-115) mg/dL Lactic Acid (0.5-2.0) mmol/L Lactic Acid Fup @ 2Hr 2.0 (0.5-2.0) mmol/L Calcium (8.4-10.2) mg/dL Magnesium (1.6-2.6) mg/dL Total Bilirubin (0.0-1.0) mg/dL Direct Bilirubin (0.0-0.5) mg/dL AST (5-31) U/L ALT (0-31) U/L Alkaline Phosphatase (39-117) U/L Total Creatine Kinase 260 H (26-140) U/L Troponin I High Sens 33.4 H* D (<3.5-17.0) ng/L B-Natriuretic Peptide (<100) pg/mL Total Protein (6.5-8.0) g/dL Albumin (3.5-5.0) g/dL Urine Color Urine Appearance Urine pH (5.0-8.0) Ur Specific [place] (1.005-1.025) Urine Protein (NEG-TRACE) MG/DL Urine Glucose (UA) (NEG) MG/DL Urine Ketones (NEG) MG/DL Urine Blood (NEG) Urine Nitrite (NEG) Ur Leukocyte Esterase (NEG) Urine RBC (0) /HPF Urine WBC (0-4) /HPF Ur Squamous Epith Cells /LPF Urine Bacteria /LPF Hyaline Casts /LPF Urine Mucus /LPF COVID-19 ([facility]) (Negative) COVID-19 Clin Com 12/07/20 12/07/20 12/07/20 Range/Units 16:23 16:24 16:28 WBC (4.8-10.8) X10*3/uL RBC (4.20-5.50) X10*6/uL Hgb (12.0-16.0) g/dl Hct (37-47) % MCV (80-98) fL MCH (27.0-33.0) pg MCHC (31.0-35.0) g/dl RDW (11.0-16.0) % Plt Count (160-400) X10*3/uL MPV (9.4-12.3) fL Immature Gran % (Auto) (0.0-0.4) % Neut % (Auto) (45-73) % Lymph % (Auto) (20-40) % [place] % (Auto) (2-11) % Eos % (Auto) (0-4) % Baso % (Auto) (0-2) % Lymph # (Auto) (1.2-4.9) X10*3/uL [place] # (Auto) (0.1-1.2) X10*3/uL Eos # (Auto) (0.0-0.4) X10*3/uL Baso # (Auto) (0.0-0.2) X10*3/uL Abs Immat Gran (auto) (0.00-0.03) X10*3/uL Absolute Neuts (auto) (2.0-8.3) X10*3/uL Absolute Nucleated RBC (0.0-0.012) X10*3/uL Nucleated RBC % (auto) (0.0-0.2) /100WBC PT (10.8-13.0) SEC INR (0.9-1.1) D-Dimer NG/ML O2 Saturation % ABG pH at Pt Temp (7.35-7.45) ABG pH (Temp Correct) (7.35-7.45) ABG pCO2 at Pt Temp (32-45) mmHg ABG pCO2 (Temp Corrct (32-45) mmHg ABG pO2 at Pt Temp (83-108) mmHg ABG pO2 (Temp Correct (83-108) ABG HCO3 (22-26) mmol/L ABG Base Excess (Actual) mmol/L VBG pH 7.21 L (7.32-7.43) VBG pCO2 79 mmHg VBG pO2 45 mmHg VBG HCO3 32 H (22-26) mmol/L VBG O2 Saturation 62.0 % VBG Base Excess 1.2 mmol/L Sodium (135-145) mmol/L Potassium (3.3-5.1) mmol/L Chloride (96-108) mmol/L Carbon Dioxide (22-29) mmol/L Anion Gap (12-20) BUN (9-16) mg/dL Creatinine (0.5-1.4) mg/dL Estim Creat Clear Calc Estimated GFR POC Glucose 60 (60-115) mg/dL Random Glucose (60-115) mg/dL Lactic Acid (0.5-2.0) mmol/L Lactic Acid Fup @ 2Hr (0.5-2.0) mmol/L Calcium (8.4-10.2) mg/dL Magnesium (1.6-2.6) mg/dL Total Bilirubin (0.0-1.0) mg/dL Direct Bilirubin (0.0-0.5) mg/dL AST (5-31) U/L ALT (0-31) U/L Alkaline Phosphatase (39-117) U/L Total Creatine Kinase (26-140) U/L Troponin I High Sens (<3.5-17.0) ng/L B-Natriuretic Peptide (<100) pg/mL Total Protein (6.5-8.0) g/dL Albumin (3.5-5.0) g/dL Urine Color BROWN Urine Appearance HAZY Urine pH 6.0 (5.0-8.0) Ur Specific [place] 1.025 (1.005-1.025) Urine Protein 2+ H (NEG-TRACE) MG/DL Urine Glucose (UA) NEG (NEG) MG/DL Urine Ketones NEG (NEG) MG/DL Urine Blood NEG (NEG) Urine Nitrite POS H (NEG) Ur Leukocyte Esterase NEG (NEG) Urine RBC 1-4 (0) /HPF Urine WBC 0 (0-4) /HPF Ur Squamous Epith Cells 1+ /LPF Urine Bacteria 1+ /LPF Hyaline Casts 0-2 /LPF Urine Mucus 1+ /LPF COVID-19 (JASWANT) (Negative) COVID-19 Clin Com 12/07/20 12/07/20 Range/Units 16:28 16:59 WBC (4.8-10.8) X10*3/uL RBC (4.20-5.50) X10*6/uL Hgb (12.0-16.0) g/dl Hct (37-47) % MCV (80-98) fL MCH (27.0-33.0) pg MCHC (31.0-35.0) g/dl RDW (11.0-16.0) % Plt Count (160-400) X10*3/uL MPV (9.4-12.3) fL Immature Gran % (Auto) (0.0-0.4) % Neut % (Auto) (45-73) % Lymph % (Auto) (20-40) % [place] % (Auto) (2-11) % Eos % (Auto) (0-4) % Baso % (Auto) (0-2) % Lymph # (Auto) (1.2-4.9) X10*3/uL [place] # (Auto) (0.1-1.2) X10*3/uL Eos # (Auto) (0.0-0.4) X10*3/uL Baso # (Auto) (0.0-0.2) X10*3/uL Abs Immat Gran (auto) (0.00-0.03) X10*3/uL Absolute Neuts (auto) (2.0-8.3) X10*3/uL Absolute Nucleated RBC (0.0-0.012) X10*3/uL Nucleated RBC % (auto) (0.0-0.2) /100WBC PT (10.8-13.0) SEC INR (0.9-1.1) D-Dimer NG/ML O2 Saturation % ABG pH at Pt Temp (7.35-7.45) ABG pH (Temp Correct) (7.35-7.45) ABG pCO2 at Pt Temp (32-45) mmHg ABG pCO2 (Temp Corrct (32-45) mmHg ABG pO2 at Pt Temp (83-108) mmHg ABG pO2 (Temp Correct (83-108) ABG HCO3 (22-26) mmol/L ABG Base Excess (Actual) mmol/L VBG pH (7.32-7.43) VBG pCO2 mmHg VBG pO2 mmHg VBG HCO3 (22-26) mmol/L VBG O2 Saturation % VBG Base Excess mmol/L Sodium (135-145) mmol/L Potassium (3.3-5.1) mmol/L Chloride (96-108) mmol/L Carbon Dioxide (22-29) mmol/L Anion Gap (12-20) BUN (9-16) mg/dL Creatinine (0.5-1.4) mg/dL Estim Creat Clear Calc Estimated GFR POC Glucose 58 L* 54 L* (60-115) mg/dL Random Glucose (60-115) mg/dL Lactic Acid (0.5-2.0) mmol/L Lactic Acid Fup @ 2Hr (0.5-2.0) mmol/L Calcium (8.4-10.2) mg/dL Magnesium (1.6-2.6) mg/dL Total Bilirubin (0.0-1.0) mg/dL Direct Bilirubin (0.0-0.5) mg/dL AST (5-31) U/L ALT (0-31) U/L Alkaline Phosphatase (39-117) U/L Total Creatine Kinase (26-140) U/L Troponin I High Sens (<3.5-17.0) ng/L B-Natriuretic Peptide (<100) pg/mL Total Protein (6.5-8.0) g/dL Albumin (3.5-5.0) g/dL Urine Color Urine Appearance Urine pH (5.0-8.0) Ur Specific [place] (1.005-1.025) Urine Protein (NEG-TRACE) MG/DL Urine Glucose (UA) (NEG) MG/DL Urine Ketones (NEG) MG/DL Urine Blood (NEG) Urine Nitrite (NEG) Ur Leukocyte Esterase (NEG) Urine RBC (0) /HPF Urine WBC (0-4) /HPF Ur Squamous Epith Cells /LPF Urine Bacteria /LPF Hyaline Casts /LPF Urine Mucus /LPF COVID-19 (JASWANT) (Negative) COVID-19 Clin Com <Mj Haile, [employer] - Last Filed: 12/07/20 19:16> Lab Results 12/07/20 12/07/20 12/07/20 Range/Units 12:46 12:52 12:53 WBC 13.0 H (4.8-10.8) X10*3/uL RBC 4.87 (4.20-5.50) X10*6/uL Hgb 15.7 (12.0-16.0) g/dl Hct 47.1 H (37-47) % MCV 96.7 (80-98) fL MCH 32.2 (27.0-33.0) pg MCHC 33.3 (31.0-35.0) g/dl RDW 14.6 (11.0-16.0) % Plt Count 284 (160-400) X10*3/uL MPV 9.4 (9.4-12.3) fL Immature Gran % (Auto) 0.9 H (0.0-0.4) % Neut % (Auto) 80.9 H (45-73) % Lymph % (Auto) 6.6 L (20-40) % [place] % (Auto) 11.3 H (2-11) % Eos % (Auto) 0.0 (0-4) % Baso % (Auto) 0.3 (0-2) % Lymph # (Auto) 0.9 L (1.2-4.9) X10*3/uL [place] # (Auto) 1.5 H (0.1-1.2) X10*3/uL Eos # (Auto) 0.0 (0.0-0.4) X10*3/uL Baso # (Auto) 0.0 (0.0-0.2) X10*3/uL Abs Immat Gran (auto) 0.12 H (0.00-0.03) X10*3/uL Absolute Neuts (auto) 10.5 H (2.0-8.3) X10*3/uL Absolute Nucleated RBC 0.000 (0.0-0.012) X10*3/uL Nucleated RBC % (auto) 0.0 (0.0-0.2) /100WBC PT (10.8-13.0) SEC INR (0.9-1.1) D-Dimer NG/ML O2 Saturation % ABG pH at Pt Temp (7.35-7.45) ABG pH (Temp Correct) (7.35-7.45) ABG pCO2 at Pt Temp (32-45) mmHg ABG pCO2 (Temp Corrct (32-45) mmHg ABG pO2 at Pt Temp (83-108) mmHg ABG pO2 (Temp Correct (83-108) ABG HCO3 (22-26) mmol/L ABG Base Excess (Actual) mmol/L VBG pH (7.32-7.43) VBG pCO2 mmHg VBG pO2 mmHg VBG HCO3 (22-26) mmol/L VBG O2 Saturation % VBG Base Excess mmol/L Sodium (135-145) mmol/L Potassium (3.3-5.1) mmol/L Chloride (96-108) mmol/L Carbon Dioxide (22-29) mmol/L Anion Gap (12-20) BUN (9-16) mg/dL Creatinine (0.5-1.4) mg/dL Estim Creat Clear Calc Estimated GFR POC Glucose (60-115) mg/dL Random Glucose (60-115) mg/dL Lactic Acid 2.5 H* (0.5-2.0) mmol/L Lactic Acid Fup @ 2Hr (0.5-2.0) mmol/L Calcium (8.4-10.2) mg/dL Magnesium (1.6-2.6) mg/dL Total Bilirubin (0.0-1.0) mg/dL Direct Bilirubin (0.0-0.5) mg/dL AST (5-31) U/L ALT (0-31) U/L Alkaline Phosphatase (39-117) U/L Total Creatine Kinase (26-140) U/L Troponin I High Sens (<3.5-17.0) ng/L B-Natriuretic Peptide (<100) pg/mL Total Protein (6.5-8.0) g/dL Albumin (3.5-5.0) g/dL Urine Color Urine Appearance Urine pH (5.0-8.0) Ur Specific [place] (1.005-1.025) Urine Protein (NEG-TRACE) MG/DL Urine Glucose (UA) (NEG) MG/DL Urine Ketones (NEG) MG/DL Urine Blood (NEG) Urine Nitrite (NEG) Ur Leukocyte Esterase (NEG) Urine RBC (0) /HPF Urine WBC (0-4) /HPF Ur Squamous Epith Cells /LPF Urine Bacteria /LPF Hyaline Casts /LPF Urine Mucus /LPF COVID-19 (JASWANT) Negative (Negative) COVID-19 Clin Com See Note 12/07/20 12/07/20 12/07/20 Range/Units 12:53 15:59 16:03 WBC (4.8-10.8) X10*3/uL RBC (4.20-5.50) X10*6/uL Hgb (12.0-16.0) g/dl Hct (37-47) % MCV (80-98) fL MCH (27.0-33.0) pg MCHC (31.0-35.0) g/dl RDW (11.0-16.0) % Plt Count (160-400) X10*3/uL MPV (9.4-12.3) fL Immature Gran % (Auto) (0.0-0.4) % Neut % (Auto) (45-73) % Lymph % (Auto) (20-40) % [place] % (Auto) (2-11) % Eos % (Auto) (0-4) % Baso % (Auto) (0-2) % Lymph # (Auto) (1.2-4.9) X10*3/uL [place] # (Auto) (0.1-1.2) X10*3/uL Eos # (Auto) (0.0-0.4) X10*3/uL Baso # (Auto) (0.0-0.2) X10*3/uL Abs Immat Gran (auto) (0.00-0.03) X10*3/uL Absolute Neuts (auto) (2.0-8.3) X10*3/uL Absolute Nucleated RBC (0.0-0.012) X10*3/uL Nucleated RBC % (auto) (0.0-0.2) /100WBC PT (10.8-13.0) SEC INR (0.9-1.1) D-Dimer NG/ML O2 Saturation 99.0 % ABG pH at Pt Temp 7.28 L (7.35-7.45) ABG pH (Temp Correct) 7.29 L (7.35-7.45) ABG pCO2 at Pt Temp 66 H* (32-45) mmHg ABG pCO2 (Temp Corrct 65 H* (32-45) mmHg ABG pO2 at Pt Temp 171 H (83-108) mmHg ABG pO2 (Temp Correct 168 H (83-108) ABG HCO3 31 H (22-26) mmol/L ABG Base Excess (Actual) 2.7 mmol/L VBG pH (7.32-7.43) VBG pCO2 mmHg VBG pO2 mmHg VBG HCO3 (22-26) mmol/L VBG O2 Saturation % VBG Base Excess mmol/L Sodium (135-145) mmol/L Potassium (3.3-5.1) mmol/L Chloride (96-108) mmol/L Carbon Dioxide (22-29) mmol/L Anion Gap (12-20) BUN (9-16) mg/dL Creatinine (0.5-1.4) mg/dL Estim Creat Clear Calc Estimated GFR POC Glucose 41 L* (60-115) mg/dL Random Glucose (60-115) mg/dL Lactic Acid (0.5-2.0) mmol/L Lactic Acid Fup @ 2Hr (0.5-2.0) mmol/L Calcium (8.4-10.2) mg/dL Magnesium (1.6-2.6) mg/dL Total Bilirubin (0.0-1.0) mg/dL Direct Bilirubin (0.0-0.5) mg/dL AST (5-31) U/L ALT (0-31) U/L Alkaline Phosphatase (39-117) U/L Total Creatine Kinase (26-140) U/L Troponin I High Sens 20.6 H* (<3.5-17.0) ng/L B-Natriuretic Peptide 1498 H (<100) pg/mL Total Protein (6.5-8.0) g/dL Albumin (3.5-5.0) g/dL Urine Color Urine Appearance Urine pH (5.0-8.0) Ur Specific [place] (1.005-1.025) Urine Protein (NEG-TRACE) MG/DL Urine Glucose (UA) (NEG) MG/DL Urine Ketones (NEG) MG/DL Urine Blood (NEG) Urine Nitrite (NEG) Ur Leukocyte Esterase (NEG) Urine RBC (0) /HPF Urine WBC (0-4) /HPF Ur Squamous Epith Cells /LPF Urine Bacteria /LPF Hyaline Casts /LPF Urine Mucus /LPF COVID-19 (JASWANT) (Negative) COVID-19 Clin Com 12/07/20 12/07/20 12/07/20 Range/Units 16:15 16:22 16:22 WBC (4.8-10.8) X10*3/uL RBC (4.20-5.50) X10*6/uL Hgb (12.0-16.0) g/dl Hct (37-47) % MCV (80-98) fL MCH (27.0-33.0) pg MCHC (31.0-35.0) g/dl RDW (11.0-16.0) % Plt Count (160-400) X10*3/uL MPV (9.4-12.3) fL Immature Gran % (Auto) (0.0-0.4) % Neut % (Auto) (45-73) % Lymph % (Auto) (20-40) % [place] % (Auto) (2-11) % Eos % (Auto) (0-4) % Baso % (Auto) (0-2) % Lymph # (Auto) (1.2-4.9) X10*3/uL [place] # (Auto) (0.1-1.2) X10*3/uL Eos # (Auto) (0.0-0.4) X10*3/uL Baso # (Auto) (0.0-0.2) X10*3/uL Abs Immat Gran (auto) (0.00-0.03) X10*3/uL Absolute Neuts (auto) (2.0-8.3) X10*3/uL Absolute Nucleated RBC (0.0-0.012) X10*3/uL Nucleated RBC % (auto) (0.0-0.2) /100WBC PT 19.1 H (10.8-13.0) SEC INR 1.6 H (0.9-1.1) D-Dimer 635 NG/ML O2 Saturation % ABG pH at Pt Temp (7.35-7.45) ABG pH (Temp Correct) (7.35-7.45) ABG pCO2 at Pt Temp (32-45) mmHg ABG pCO2 (Temp Corrct (32-45) mmHg ABG pO2 at Pt Temp (83-108) mmHg ABG pO2 (Temp Correct (83-108) ABG HCO3 (22-26) mmol/L ABG Base Excess (Actual) mmol/L VBG pH (7.32-7.43) VBG pCO2 mmHg VBG pO2 mmHg VBG HCO3 (22-26) mmol/L VBG O2 Saturation % VBG Base Excess mmol/L Sodium 126 L (135-145) mmol/L Potassium 5.4 H (3.3-5.1) mmol/L Chloride 87 L (96-108) mmol/L Carbon Dioxide 28 (22-29) mmol/L Anion Gap 16 (12-20) BUN 29 H D (9-16) mg/dL Creatinine 0.86 (0.5-1.4) mg/dL Estim Creat Clear Calc 52.4 Estimated GFR > 60 POC Glucose 42 L* (60-115) mg/dL Random Glucose 210 H D (60-115) mg/dL Lactic Acid (0.5-2.0) mmol/L Lactic Acid Fup @ 2Hr (0.5-2.0) mmol/L Calcium 8.0 L D (8.4-10.2) mg/dL Magnesium 1.8 (1.6-2.6) mg/dL Total Bilirubin 0.7 (0.0-1.0) mg/dL Direct Bilirubin 0.5 (0.0-0.5) mg/dL AST 636 H (5-31) U/L ALT 416 H (0-31) U/L Alkaline Phosphatase 135 H (39-117) U/L Total Creatine Kinase (26-140) U/L Troponin I High Sens (<3.5-17.0) ng/L B-Natriuretic Peptide (<100) pg/mL Total Protein 5.6 L (6.5-8.0) g/dL Albumin 2.4 L D (3.5-5.0) g/dL Urine Color Urine Appearance Urine pH (5.0-8.0) Ur Specific [place] (1.005-1.025) Urine Protein (NEG-TRACE) MG/DL Urine Glucose (UA) (NEG) MG/DL Urine Ketones (NEG) MG/DL Urine Blood (NEG) Urine Nitrite (NEG) Ur Leukocyte Esterase (NEG) Urine RBC (0) /HPF Urine WBC (0-4) /HPF Ur Squamous Epith Cells /LPF Urine Bacteria /LPF Hyaline Casts /LPF Urine Mucus /LPF COVID-19 (JASWANT) (Negative) COVID-19 Clin Com 12/07/20 12/07/20 12/07/20 Range/Units 16:22 16:23 16:23 WBC (4.8-10.8) X10*3/uL RBC (4.20-5.50) X10*6/uL Hgb (12.0-16.0) g/dl Hct (37-47) % MCV (80-98) fL MCH (27.0-33.0) pg MCHC (31.0-35.0) g/dl RDW (11.0-16.0) % Plt Count (160-400) X10*3/uL MPV (9.4-12.3) fL Immature Gran % (Auto) (0.0-0.4) % Neut % (Auto) (45-73) % Lymph % (Auto) (20-40) % [place] % (Auto) (2-11) % Eos % (Auto) (0-4) % Baso % (Auto) (0-2) % Lymph # (Auto) (1.2-4.9) X10*3/uL [place] # (Auto) (0.1-1.2) X10*3/uL Eos # (Auto) (0.0-0.4) X10*3/uL Baso # (Auto) (0.0-0.2) X10*3/uL Abs Immat Gran (auto) (0.00-0.03) X10*3/uL Absolute Neuts (auto) (2.0-8.3) X10*3/uL Absolute Nucleated RBC (0.0-0.012) X10*3/uL Nucleated RBC % (auto) (0.0-0.2) /100WBC PT (10.8-13.0) SEC INR (0.9-1.1) D-Dimer NG/ML O2 Saturation % ABG pH at Pt Temp (7.35-7.45) ABG pH (Temp Correct) (7.35-7.45) ABG pCO2 at Pt Temp (32-45) mmHg ABG pCO2 (Temp Corrct (32-45) mmHg ABG pO2 at Pt Temp (83-108) mmHg ABG pO2 (Temp Correct (83-108) ABG HCO3 (22-26) mmol/L ABG Base Excess (Actual) mmol/L VBG pH (7.32-7.43) VBG pCO2 mmHg VBG pO2 mmHg VBG HCO3 (22-26) mmol/L VBG O2 Saturation % VBG Base Excess mmol/L Sodium (135-145) mmol/L Potassium (3.3-5.1) mmol/L Chloride (96-108) mmol/L Carbon Dioxide (22-29) mmol/L Anion Gap (12-20) BUN (9-16) mg/dL Creatinine (0.5-1.4) mg/dL Estim Creat Clear Calc Estimated GFR POC Glucose (60-115) mg/dL Random Glucose (60-115) mg/dL Lactic Acid (0.5-2.0) mmol/L Lactic Acid Fup @ 2Hr 2.0 (0.5-2.0) mmol/L Calcium (8.4-10.2) mg/dL Magnesium (1.6-2.6) mg/dL Total Bilirubin (0.0-1.0) mg/dL Direct Bilirubin (0.0-0.5) mg/dL AST (5-31) U/L ALT (0-31) U/L Alkaline Phosphatase (39-117) U/L Total Creatine Kinase 260 H (26-140) U/L Troponin I High Sens 33.4 H* D (<3.5-17.0) ng/L B-Natriuretic Peptide (<100) pg/mL Total Protein (6.5-8.0) g/dL Albumin (3.5-5.0) g/dL Urine Color Urine Appearance Urine pH (5.0-8.0) Ur Specific [place] (1.005-1.025) Urine Protein (NEG-TRACE) MG/DL Urine Glucose (UA) (NEG) MG/DL Urine Ketones (NEG) MG/DL Urine Blood (NEG) Urine Nitrite (NEG) Ur Leukocyte Esterase (NEG) Urine RBC (0) /HPF Urine WBC (0-4) /HPF Ur Squamous Epith Cells /LPF Urine Bacteria /LPF Hyaline Casts /LPF Urine Mucus /LPF COVID-19 (JASWANT) (Negative) COVID-19 Clin Com 12/07/20 12/07/20 12/07/20 Range/Units 16:23 16:24 16:28 WBC (4.8-10.8) X10*3/uL RBC (4.20-5.50) X10*6/uL Hgb (12.0-16.0) g/dl Hct (37-47) % MCV (80-98) fL MCH (27.0-33.0) pg MCHC (31.0-35.0) g/dl RDW (11.0-16.0) % Plt Count (160-400) X10*3/uL MPV (9.4-12.3) fL Immature Gran % (Auto) (0.0-0.4) % Neut % (Auto) (45-73) % Lymph % (Auto) (20-40) % [place] % (Auto) (2-11) % Eos % (Auto) (0-4) % Baso % (Auto) (0-2) % Lymph # (Auto) (1.2-4.9) X10*3/uL [place] # (Auto) (0.1-1.2) X10*3/uL Eos # (Auto) (0.0-0.4) X10*3/uL Baso # (Auto) (0.0-0.2) X10*3/uL Abs Immat Gran (auto) (0.00-0.03) X10*3/uL Absolute Neuts (auto) (2.0-8.3) X10*3/uL Absolute Nucleated RBC (0.0-0.012) X10*3/uL Nucleated RBC % (auto) (0.0-0.2) /100WBC PT (10.8-13.0) SEC INR (0.9-1.1) D-Dimer NG/ML O2 Saturation % ABG pH at Pt Temp (7.35-7.45) ABG pH (Temp Correct) (7.35-7.45) ABG pCO2 at Pt Temp (32-45) mmHg ABG pCO2 (Temp Corrct (32-45) mmHg ABG pO2 at Pt Temp (83-108) mmHg ABG pO2 (Temp Correct (83-108) ABG HCO3 (22-26) mmol/L ABG Base Excess (Actual) mmol/L VBG pH 7.21 L (7.32-7.43) VBG pCO2 79 mmHg VBG pO2 45 mmHg VBG HCO3 32 H (22-26) mmol/L VBG O2 Saturation 62.0 % VBG Base Excess 1.2 mmol/L Sodium (135-145) mmol/L Potassium (3.3-5.1) mmol/L Chloride (96-108) mmol/L Carbon Dioxide (22-29) mmol/L Anion Gap (12-20) BUN (9-16) mg/dL Creatinine (0.5-1.4) mg/dL Estim Creat Clear Calc Estimated GFR POC Glucose 60 (60-115) mg/dL Random Glucose (60-115) mg/dL Lactic Acid (0.5-2.0) mmol/L Lactic Acid Fup @ 2Hr (0.5-2.0) mmol/L Calcium (8.4-10.2) mg/dL Magnesium (1.6-2.6) mg/dL Total Bilirubin (0.0-1.0) mg/dL Direct Bilirubin (0.0-0.5) mg/dL AST (5-31) U/L ALT (0-31) U/L Alkaline Phosphatase (39-117) U/L Total Creatine Kinase (26-140) U/L Troponin I High Sens (<3.5-17.0) ng/L B-Natriuretic Peptide (<100) pg/mL Total Protein (6.5-8.0) g/dL Albumin (3.5-5.0) g/dL Urine Color BROWN Urine Appearance HAZY Urine pH 6.0 (5.0-8.0) Ur Specific [place] 1.025 (1.005-1.025) Urine Protein 2+ H (NEG-TRACE) MG/DL Urine Glucose (UA) NEG (NEG) MG/DL Urine Ketones NEG (NEG) MG/DL Urine Blood NEG (NEG) Urine Nitrite POS H (NEG) Ur Leukocyte Esterase NEG (NEG) Urine RBC 1-4 (0) /HPF Urine WBC 0 (0-4) /HPF Ur Squamous Epith Cells 1+ /LPF Urine Bacteria 1+ /LPF Hyaline Casts 0-2 /LPF Urine Mucus 1+ /LPF COVID-19 (JASWANT) (Negative) COVID-19 Clin Com 12/07/20 12/07/20 Range/Units 16:28 16:59 WBC (4.8-10.8) X10*3/uL RBC (4.20-5.50) X10*6/uL Hgb (12.0-16.0) g/dl Hct (37-47) % MCV (80-98) fL MCH (27.0-33.0) pg MCHC (31.0-35.0) g/dl RDW (11.0-16.0) % Plt Count (160-400) X10*3/uL MPV (9.4-12.3) fL Immature Gran % (Auto) (0.0-0.4) % Neut % (Auto) (45-73) % Lymph % (Auto) (20-40) % [place] % (Auto) (2-11) % Eos % (Auto) (0-4) % Baso % (Auto) (0-2) % Lymph # (Auto) (1.2-4.9) X10*3/uL [place] # (Auto) (0.1-1.2) X10*3/uL Eos # (Auto) (0.0-0.4) X10*3/uL Baso # (Auto) (0.0-0.2) X10*3/uL Abs Immat Gran (auto) (0.00-0.03) X10*3/uL Absolute Neuts (auto) (2.0-8.3) X10*3/uL Absolute Nucleated RBC (0.0-0.012) X10*3/uL Nucleated RBC % (auto) (0.0-0.2) /100WBC PT (10.8-13.0) SEC INR (0.9-1.1) D-Dimer NG/ML O2 Saturation % ABG pH at Pt Temp (7.35-7.45) ABG pH (Temp Correct) (7.35-7.45) ABG pCO2 at Pt Temp (32-45) mmHg ABG pCO2 (Temp Corrct (32-45) mmHg ABG pO2 at Pt Temp (83-108) mmHg ABG pO2 (Temp Correct (83-108) ABG HCO3 (22-26) mmol/L ABG Base Excess (Actual) mmol/L VBG pH (7.32-7.43) VBG pCO2 mmHg VBG pO2 mmHg VBG HCO3 (22-26) mmol/L VBG O2 Saturation % VBG Base Excess mmol/L Sodium (135-145) mmol/L Potassium (3.3-5.1) mmol/L Chloride (96-108) mmol/L Carbon Dioxide (22-29) mmol/L Anion Gap (12-20) BUN (9-16) mg/dL Creatinine (0.5-1.4) mg/dL Estim Creat Clear Calc Estimated GFR POC Glucose 58 L* 54 L* (60-115) mg/dL Random Glucose (60-115) mg/dL Lactic Acid (0.5-2.0) mmol/L Lactic Acid Fup @ 2Hr (0.5-2.0) mmol/L Calcium (8.4-10.2) mg/dL Magnesium (1.6-2.6) mg/dL Total Bilirubin (0.0-1.0) mg/dL Direct Bilirubin (0.0-0.5) mg/dL AST (5-31) U/L ALT (0-31) U/L Alkaline Phosphatase (39-117) U/L Total Creatine Kinase (26-140) U/L Troponin I High Sens (<3.5-17.0) ng/L B-Natriuretic Peptide (<100) pg/mL Total Protein (6.5-8.0) g/dL Albumin (3.5-5.0) g/dL Urine Color Urine Appearance Urine pH (5.0-8.0) Ur Specific [place] (1.005-1.025) Urine Protein (NEG-TRACE) MG/DL Urine Glucose (UA) (NEG) MG/DL Urine Ketones (NEG) MG/DL Urine Blood (NEG) Urine Nitrite (NEG) Ur Leukocyte Esterase (NEG) Urine RBC (0) /HPF Urine WBC (0-4) /HPF Ur Squamous Epith Cells /LPF Urine Bacteria /LPF Hyaline Casts /LPF Urine Mucus /LPF COVID-19 ([facility]) (Negative) COVID-19 Clin Com <Kavon Barksdale MD - Last Filed: 12/07/20 19:07> Imaging Data Chest x-ray: Attestation: I personally reviewed and interpreted this imaging study as follows: <Mj Haile NP - Last Filed: 12/07/20 19:16> Radiologist's impression: EXAMINATION: XR CHEST CLINICAL INFORMATION: Shortness breath COMPARISON: February 14, 2020 and studies dating back to October 13, 2015 TECHNIQUE: 2 views of the chest were obtained. FINDINGS: There are again noted to be regions of chronic interstitial disease and scarring bilaterally without significant change from previous study of February 14, 2020. Pleural parenchymal disease is seen at the lung bases with no definite new large pleural effusion. No pneumothorax. Patient status post right neck surgery as well as left upper lobe surgery. XR/XR chest 2V IMPRESSION: Diffuse lung disease similar to appearance to previous study representing chronic interstitial lung disease and scarring. Superimposed region of acute disease not excluded. <Mj Haile NP - Last Filed: 12/07/20 19:16> CT scan - head: Attestation: I personally reviewed and interpreted this imaging study as follows: <Mj Haile NP - Last Filed: 12/07/20 19:16> Radiologist's impression: EXAMINATION: CT HEAD WITHOUT CONTRAST CLINICAL INFORMATION: Weakness COMPARISON: CTA head and neck 01/12/2019, CT head noncontrast 01/06/2020 TECHNIQUE: Contiguous axial imaging was performed from the skull base to vertex without intravenous administration of contrast. Additional 2-D coronal and sagittal reformatted images are generated on the CT workstation and uploaded to PACS. This CT examination was performed using dose optimization techniques as appropriate, variously including the following: *Automated exposure control *Adjustment of mA and/or kV according to patient size (this includes techniques or standardized protocols for targeted exams where dose is matched to indication/reason for exam; i.e. extremities or head) *Use of iterative reconstruction technique DLP: 643 mGy-cm FINDINGS: There is no intracranial hemorrhage, hematoma, or extra-axial fluid collection. The ventricles are normal in size. There is no hydrocephalus, edema, or mass effect. There is periventricular white matter gliosis is again noted consistent with small vessel ischemic changes. There is no mass effect or edema. There is no visible acute territorial infarct or mass lesion. The calvarium appears intact. There is no pneumocephalus or orbital emphysema. The visualized sinuses and middle ears and mastoid air cells show no significant mucosal thickening. There are no air-fluid levels. CT/CT head/brain wo con IMPRESSION: No acute intracranial abnormality. <Mj Haile NP - Last Filed: 12/07/20 19:16> CT scan - chest: Attestation: I personally reviewed and interpreted this imaging study as follows: <Mj Haile NP - Last Filed: 12/07/20 19:16> Radiologist's impression: cc: MJ HAILE NP~ EXAMINATION: CT ANGIOGRAM OF THE CHEST WITH AND WITHOUT CONTRAST (CT PULMONARY ANGIOGRAM FOR PE) CLINICAL INFORMATION: Reason for Exam r/o pe, sob, hypoxia COMPARISON: None TECHNIQUE: Prior to contrast administration, noncontrast localization images were obtained. Subsequently, multidetector volumetric imaging was performed from the thoracic inlet to below the diaphragms following the administration of 80 mL Omnipaque 350 intravenous contrast. No contrast reaction reported Sagittal, coronal, and MIP oblique sagittal reformatted images were obtained on the CT workstation, uploaded to PACS, and reviewed. This CT examination was performed using dose optimization techniques as appropriate, variously including the following: *Automated exposure control *Adjustment of mA and/or kV according to patient size (this includes techniques or standardized protocols for targeted exams where dose is matched to indication/reason for exam; i.e. extremities or head) *Use of iterative reconstruction technique Total exam dose-length product 393 mGy-cm FINDINGS: QUALITY OF STUDY/CONTRAST BOLUS: Satisfactory. PULMONARY ARTERIES: No central or segmental pulmonary emboli. THORACIC AORTA: No aneurysm or dissection. LUNG: The lungs are emphysematous with diffuse patchy groundglass opacity seen throughout both lungs with increased interstitial thickening and clear chronic interstitial edema, scarring. There is honeycombing visualized in both lower lobes. Superimposed pneumonitis cannot be excluded. These findings have progressed since 02/14/2020 PLEURA: There is moderate right and small left pleural effusion. MEDIASTINUM: The heart size is enlarged. No pericardial effusion. No hilar or mediastinal lymphadenopathy. No evidence of septal bowing or right heart strain. CHEST WALL/AXILLA: No axillary or internal mammary lymphadenopathy. OSSEOUS STRUCTURES: No acute or suspicious osseous abnormality. UPPER ABDOMEN: Unremarkable. No reflux of contrast into the hepatic veins to suggest elevated right heart pressures. CT/CT angio chest PE protocol IMPRESSION: No evidence of PE. Emphysema with chronic interstitial thickening unchanged to previous exam from 2019. There is diffuse groundglass opacity likely superimposed inflammatory infectious etiology. Interstitial pneumonitis is not excluded. There is a moderate right and small to moderate left pleural effusion. VTE: Negative <Mj Haile NP - Last Filed: 12/07/20 19:16> ECG Data Attestation: I personally reviewed and interpreted this ECG as follows: <Mj Haile NP - Last Filed: 12/07/20 19:16> Interpretation: Normal sinus rhythm with a rate of 61, right bundle-branch block, ST depressions leads V1 through V3 which are unchanged when compared to EKG from 02/14/2020 <Mj Haile NP - Last Filed: 12/07/20 19:16> Critical Care Time Critical Care Time Critical Care Time: Yes <Mj Haile NP - Last Filed: 12/07/20 19:16> Total Critical Care Time: 120 <Mj Haile NP - Last Filed: 12/07/20 19:16> Attestation: central line placement, management of pulse oximeter, heart rate with inotropics, multiple discussions with family in regards to advance directives. Discussion with ICU for admit <Mj Haile NP - Last Filed: 12/07/20 19:16> Discharge Plan Discharge Clinical Impression: Hypoxia, Hypoglycemia, Weakness, Leukocytosis, Hyponatremia, Hypochloremia, Hyperkalemia, Elevated LFTs <Mj Haile NP - Last Filed: 12/07/20 19:16> Patient Disposition: Admitted As Inpatient <Mj Haile NP - Last Filed: 12/07/20 19:16>
[2020-12-07 13:00] LABS: MANUAL DIFF FLAG NO
[2020-12-07 13:01] LABS: Basophils Percent Auto 0.3 % (0-2); Hematocrit 47.1 % (37-47); Hemoglobin 15.7 g/dl (12.0-16.0); Imm Gran Abs Auto 0.12 X10*3/uL (0.00-0.03); Imm Gran Pct Auto 0.9 % (0.0-0.4); Lymphocytes Absolute Auto 0.9 X10*3/uL (1.2-4.9); Lymphocytes Percent Auto 6.6 % (20-40); Mean Corpuscular HGB Conc 33.3 g/dl (31.0-35.0); Mean Corpuscular Hemoglobin 32.2 pg (27.0-33.0); Mean Corpuscular Volume 96.7 fL (80-98); Mean Platelet Volume 9.4 fL (9.4-12.3); Monocytes Absolute Auto 1.5 X10*3/uL (0.1-1.2); Monocytes Percent Auto 11.3 % (2-11); Neutrophils Absolute Auto 10.5 X10*3/uL (2.0-8.3); Neutrophils Percent Auto 80.9 % (45-73); Platelet Count 284 X10*3/uL (160-400); Red Blood Count 4.87 X10*6/uL (4.20-5.50); Red Cell Distribution Width 14.6 % (11.0-16.0)
[2020-12-07] MEDS: Acetaminophen 325 MG TABLET 975 MG PO (13:01)
--- NOTE | 2020-12-07 13:16 | HE.PHANOTE ---
Pharmacy Consult ? Medication Reconciliation Pharmacy has completed the medication reconciliation and there were no significant medication issues requiring provider attention. June Brock, PharmD [phone]
[2020-12-07 13:19] LABS: COVID-19 Test Negative (Negative); IDNOW Serial# 9DD0AD1C
[2020-12-07 13:53] LABS: Lactic Acid 2.5 mmol/L (0.5-2.0)
[2020-12-07 13:54] LABS: B Type Natriuretic Peptide 1498 pg/mL (<100); Troponin-I High Sensitivity 20.6 ng/L (<3.5-17.0)
[2020-12-07 14:58] LABS: Reflex Lactate? Lactic Acid Added
--- NOTE | 2020-12-07 15:07 | PC.NURSE ---
second set of cultures attempted to be drawn. four different staff attempt. call made to phlebotomy to draw. awaiting phlebotomy to draw cultures and other labs
[2020-12-07 16:05] LABS: ABG Base Excess 2.7 mmol/L; ABG HCO3 31 mmol/L (22-26); ABG pCO2 66 mmHg (32-45); ABG pCO2 TC 65 mmHg (32-45); ABG pH 7.28 (7.35-7.45); ABG pH TC 7.29 (7.35-7.45); ABG pO2 171 mmHg (83-108); ABG pO2 TC 168 (83-108)
[2020-12-07] MEDS: Calcium Gluconate/NaCl,Iso-Osm 2 GM/100 ML PLAST..BAG IV (16:28)
[2020-12-07] MEDS: cefTRIAXone sodium 1 GM in 0.9 % Sodium Chloride 50 ML IV (16:29)
[2020-12-07 16:33] LABS: Venous Blood Gas Refer to POC result
[2020-12-07 16:36] LABS: Glucose Urine UA NEG (NEG); Leukocyte Esterase Urine NEG (NEG); Nitrite Urine POS (NEG); Specific Gravity - Urine 1.025 (1.005-1.025); UACC Culture Trigger YES; Urine Blood NEG (NEG); Urine Ketones NEG (NEG); Urine Protein 2+ MG/DL (NEG-TRACE)
[2020-12-07 16:37] LABS: VBG Base Excess 1.2 mmol/L; VBG HCO3 32 mmol/L (22-26); VBG pCO2 79 mmHg; VBG pH 7.21 (7.32-7.43); VBG pO2 45 mmHg
[2020-12-07 16:38] LABS: INTERNATIONAL NORM RATIO 1.6 (0.9-1.1); Prothrombin Time 19.1 SEC (10.8-13.0)
[2020-12-07 16:39] LABS: Appearance Urine HAZY; Color Urine BROWN
[2020-12-07 16:47] LABS: Bacteria Urine 1+ /LPF; Hyaline Casts Urine 0-2 /LPF; Mucus Urine 1+ /LPF; Squamous Epithelial Cell Urine 1+ /LPF; WBC Urine 0 /HPF (0-4)
[2020-12-07 16:50] LABS: D Dimer 635 NG/ML
[2020-12-07] MEDS: Dextrose 10 % 1,000 ML 75 ML IVCONT (17:00)
--- NOTE | 2020-12-07 17:01 | PC.NURSE ---
patient has become increased lethargy compared to when arriving to ED. would wake but had stare on her face, was not as responsive as she was earlier. BUNDLE CLERK at bedside. patient would answer questions but slow to answer. poc checked and was 42. amp d5 given. personnel and payroll technician attempted second iv line, placed by dr dudley with ultrasound. repeat labs drawn, phlebotomy was unable to obtain earlier. patient o2 sat dropping and blood pressure as well. repeat POC checked and was low in 40s again. another amp d5 was given. patient more alert. was conversing more with staff. daughter called and is now at bedside. she is discussing code status with patient. farmworker machine also at bedside an examined patient. d10 running for patient at this time. POC currently 54, BUNDLE CLERK at bedside when result occurred. plan is for central line placement and to start dopamine.
[2020-12-07 17:05] LABS: Alanine Aminotransferase 416 U/L (0-31); Albumin Level 2.4 g/dL (3.5-5.0); Alkaline Phosphatase 135 U/L (39-117); Aspartate Amino Transferase 636 U/L (5-31); Bilirubin Direct 0.5 mg/dL (0.0-0.5); Bilirubin Total 0.7 mg/dL (0.0-1.0); Blood Urea Nitrogen 29 mg/dL (9-16); Creatinine Clr Calc Pharmacy 52.4; Estimated Glomerular Filt Rate > 60; Glucose Random 210 mg/dL (60-115); Magnesium 1.8 mg/dL (1.6-2.6); Total Protein 5.6 g/dL (6.5-8.0)
[2020-12-07 17:10] LABS: Troponin-I High Sensitivity 33.4 ng/L (<3.5-17.0)
[2020-12-07 17:11] LABS: Anion Gap 16 (12-20); Carbon Dioxide 28 mmol/L (22-29); Chloride 87 mmol/L (96-108); Potassium 5.4 mmol/L (3.3-5.1); Sodium 126 mmol/L (135-145)
--- NOTE | 2020-12-07 17:48 | P.HPCC_ITS ---
History of Present Illness Date of Service: 12/07/20 Chief Complaint: Increased shortness of breath 80-year-old female with inoperable coronary disease on medication only with chronic COPD and chronic cor pulmonale who has developed increased shortness of breath and weakness over the last week no prior history of hypercoagulability no fever chills nor productive cough was a chest x-ray that could be consistent w ith pulmonary fibrosis versus pulmonary edema or extensive infiltrate but is in acute on chronic hypercarbic and hypoxic respiratory failure with very dense all 4 extremity peripheral acrocyanosis bradycardic on metoprolol as part of the treatment for ischemic disease with heart rate 54 and an EKG that is not acute but normal sinus rhythm with right bundle branch block and left posterior hemiblock Bedside echo shows concentric left ventricular hypertrophy with globally preserved systolic reserve and no primary valve or pericardial disease but predominant right heart failure with marked dilatation and hypokinesis of the right ventricle and with 4+ tricuspid regurgitation tricuspid regurgitant velocity is low implying poor systolic RV function Definitely in low-flow state with severe peripheral acrocyanosis but positive neck vein distension and elevated liver functions all implying severe passive congestion from right heart failure Further history that we obtain from Rheumatology indicates a prior diagnosis of lupus and she had been on Plaquenil at 1 point and that is probably the unde rlying reason for the fibrotic lung disease Review of Systems Review of Systems: Yes all other systems are reviewed and are negative [facility] Past Medical History Medical History Aortic stenosis CAD (coronary artery disease) Chronic stable angina COPD (chronic obstructive pulmonary disease) Epilepsy HTN (hypertension) Hypercholesterolemia Interstitial lung disease Osteoarthritis Raynauds phenomenon Squamous carcinoma Stenosis of right carotid artery Family History Family History Father COPD (chronic obstructive pulmonary disease) CVD (cardiovascular disease) Mother ESRD (end stage renal disease) CVD (cardiovascular disease) Brother No problems noted. Brother No problems noted. Daughter No problems noted. Son No problems noted. Sister No problems noted. Surgical History Surgical History H/O colonoscopy History of ankle surgery History of bunionectomy History of cardiac cath History of carotid endarterectomy Social History Social History Household Members: Spouse Housing: House Are you a primary critical care unit nurse to a significant other at home: No Do you presently have visiting nurse or other home services: No Unable to assess alcohol history related to: Unable to respond Alcohol intake: never Patient Tobacco Use Status: Never used Tobacco Second Hand Smoke Exposure: Yes Use of substances other than those prescribed or required for medical reasons: Unable to respond Currently Displaying Signs/Symptoms of Drug Intoxication Withdrawal: No Advance Directives: No Advance Directives Information Provided: Yes Do you have thoughts of harming others: None Do you have a plan to hurt others: No Plan Recently lost weight without trying: Unsure service: No Current occupational status: retired Gender identity: female Meds Allergies Allergy/AdvReac Type Severity Reaction Status Date / Time morphine [MORPHINE] Allergy Severe NAUSEA & Verified 11/07/20 11:39 VOMITING, vomiting Active Medications: Current Medications Generic Name Dose Route Start Last Admin Trade Name Freq PRN Reason Stop Dose Admin Calcium Gluconate 2 gm in 100 mls @ 50 mls/hr 12/07/20 16:25 12/07/20 16:28 Calcium Gluconate IV 12/07/20 18:24 50 mls/hr ONCE ONE Administration Dextrose 1,000 mls @ 75 mls/hr 12/07/20 17:00 12/07/20 17:00 D10 IVCONT 75 mls/hr .[id number] SUNNY Administration Dopamine HCl/Dextrose 400 mg in 250 mls @ 0 mls/hr 12/07/20 16:45 IVCONT .Q0M SUNNY Protocol Per Protocol Pharmacy Consult 1 each 12/07/20 12:34 Consult Rx Perform Med Rec MISCELLANE ONCE PRN Consult order Home Medications Medication Instructions Recorded Confirmed Last Taken Type aspirin 81 mg tablet,delayed 81 mg PO DAILY 04/12/20 12/07/20 12/07/20 History release loratadine 10 mg tablet 10 mg PO DAILY 04/12/20 12/07/20 12/07/20 History metoprolol succinate 100 mg 100 mg PO DAILY 04/12/20 12/07/20 12/07/20 History tablet,extended release 24 hr fluticasone fur. 100 mcg-umeclid 1 inh INHALATION DAILY 04/24/20 12/07/20 12/07/20 History 62.5 mcg-vilant 25 mcg inhalat.powder phenobarbital 100 mg tablet 100 mg PO BEDTIME 05/09/20 12/07/20 12/06/20 History albuterol sulfate 2.5 mg INHALATION TID PRN 12/07/20 12/07/20 12/07/20 History atorvastatin 80 mg PO BEDTIME 12/07/20 12/07/20 12/06/20 History benzonatate 1 cap PO TID PRN 12/07/20 12/07/20 Unknown History ezetimibe [Zetia] 10 mg PO BEDTIME 12/07/20 12/07/20 12/06/20 History gabapentin 100 mg PO TID 12/07/20 12/07/20 12/07/20 History meclizine [Dramamine Less Drowsy] 25 mg PO DAILY PRN 12/07/20 12/07/20 12/07/20 History Physical Exam Vital Signs: Vital Signs: Last Vital Signs Temp 97.5 F 12/07/20 12:21 Pulse 58 12/07/20 17:00 Resp 14 12/07/20 17:00 BP 117/66 12/07/20 17:00 Pulse Ox 97 12/07/20 17:00 Body Mass Index 25.2 Is she is awake but lethargic and if she definitely improved following glucose for hypoglycemia No focal neurologic issues including cranial nerves Scattered bilateral coarse rales but no wheezing Abdomen benign nontender good bowel sounds Cardiac exam described by echo Peripherally she has got bilateral pretibial edema and stasis dermatitis and all 4 extremity acrocyanosis Results Labs CBC and Chem 7: 12/09/20 05:19 12/09/20 05:19 Labs: Laboratory Results - last 24 hr 12/07/20 12/07/20 12/07/20 12:46 12:52 12:53 MCV 96.7 MCH 32.2 MCHC 33.3 RDW 14.6 Plt Count 284 MPV 9.4 Immature Gran % (Auto) 0.9 H Neut % (Auto) 80.9 H Lymph % (Auto) 6.6 L Lander % (Auto) 11.3 H Eos % (Auto) 0.0 Baso % (Auto) 0.3 Lymph # (Auto) 0.9 L Lander # (Auto) 1.5 H Eos # (Auto) 0.0 Baso # (Auto) 0.0 Abs Immat Gran (auto) 0.12 H Absolute Neuts (auto) 10.5 H Absolute Nucleated RBC 0.000 Nucleated RBC % (auto) 0.0 PT INR D-Dimer O2 Saturation ABG pH at Pt Temp ABG pH (Temp Correct) ABG pCO2 at Pt Temp ABG pCO2 (Temp Corrct ABG pO2 at Pt Temp ABG pO2 (Temp Correct ABG HCO3 ABG Base Excess (Actual) VBG pH VBG pCO2 VBG pO2 VBG HCO3 VBG O2 Saturation VBG Base Excess Anion Gap Estim Creat Clear Calc Estimated GFR Random Glucose Lactic Acid 2.5 H* Lactic Acid Fup @ 2Hr Calcium Magnesium Total Bilirubin Direct Bilirubin AST ALT Alkaline Phosphatase Total Creatine Kinase Troponin I High Sens B-Natriuretic Peptide Total Protein Albumin Urine Color Urine Appearance Urine pH Ur Specific [place] Urine Protein Urine Glucose (UA) Urine Ketones Urine Blood Urine Nitrite Ur Leukocyte Esterase Urine RBC Urine WBC Ur Squamous Epith Cells Urine Bacteria Hyaline Casts Urine Mucus COVID-19 (JASWANT) Negative COVID-19 Clin Com See Note 12/07/20 12/07/20 12/07/20 12:53 15:59 16:22 MCV MCH MCHC RDW Plt Count MPV Immature Gran % (Auto) Neut % (Auto) Lymph % (Auto) Lander % (Auto) Eos % (Auto) Baso % (Auto) Lymph # (Auto) Lander # (Auto) Eos # (Auto) Baso # (Auto) Abs Immat Gran (auto) Absolute Neuts (auto) Absolute Nucleated RBC Nucleated RBC % (auto) PT 19.1 H INR 1.6 H D-Dimer 635 O2 Saturation 99.0 ABG pH at Pt Temp 7.28 L ABG pH (Temp Correct) 7.29 L ABG pCO2 at Pt Temp 66 H* ABG pCO2 (Temp Corrct 65 H* ABG pO2 at Pt Temp 171 H ABG pO2 (Temp Correct 168 H ABG HCO3 31 H ABG Base Excess (Actual) 2.7 VBG pH VBG pCO2 VBG pO2 VBG HCO3 VBG O2 Saturation VBG Base Excess Anion Gap Estim Creat Clear Calc Estimated GFR Random Glucose Lactic Acid Lactic Acid Fup @ 2Hr Calcium Magnesium Total Bilirubin Direct Bilirubin AST ALT Alkaline Phosphatase Total Creatine Kinase Troponin I High Sens 20.6 H* B-Natriuretic Peptide 1498 H Total Protein Albumin Urine Color Urine Appearance Urine pH Ur Specific [place] Urine Protein Urine Glucose (UA) Urine Ketones Urine Blood Urine Nitrite Ur Leukocyte Esterase Urine RBC Urine WBC Ur Squamous Epith Cells Urine Bacteria Hyaline Casts Urine Mucus COVID-19 (JASWANT) COVID-19 [employer] 12/07/20 12/07/20 12/07/20 16:22 16:22 16:23 MCV MCH MCHC RDW Plt Count MPV Immature Gran % (Auto) Neut % (Auto) Lymph % (Auto) Lander % (Auto) Eos % (Auto) Baso % (Auto) Lymph # (Auto) Lander # (Auto) Eos # (Auto) Baso # (Auto) Abs Immat Gran (auto) Absolute Neuts (auto) Absolute Nucleated RBC Nucleated RBC % (auto) PT INR D-Dimer O2 Saturation ABG pH at Pt Temp ABG pH (Temp Correct) ABG pCO2 at Pt Temp ABG pCO2 (Temp Corrct ABG pO2 at Pt Temp ABG pO2 (Temp Correct ABG HCO3 ABG Base Excess (Actual) VBG pH VBG pCO2 VBG pO2 VBG HCO3 VBG O2 Saturation VBG Base Excess Anion Gap 16 Estim Creat Clear Calc 52.4 Estimated GFR > 60 Random Glucose 210 H D Lactic Acid Lactic Acid Fup @ 2Hr 2.0 Calcium 8.0 L D Magnesium 1.8 Total Bilirubin 0.7 Direct Bilirubin 0.5 AST 636 H ALT 416 H Alkaline Phosphatase 135 H Total Creatine Kinase 260 H Troponin I High Sens B-Natriuretic Peptide Total Protein 5.6 L Albumin 2.4 L D Urine Color Urine Appearance Urine pH Ur Specific [place] Urine Protein Urine Glucose (UA) Urine Ketones Urine Blood Urine Nitrite Ur Leukocyte Esterase Urine RBC Urine WBC Ur Squamous Epith Cells Urine Bacteria Hyaline Casts Urine Mucus COVID-19 (JASWANT) COVID-19 [employer] 12/07/20 12/07/20 12/07/20 16:23 16:23 16:28 MCV MCH MCHC RDW Plt Count MPV Immature Gran % (Auto) Neut % (Auto) Lymph % (Auto) Lander % (Auto) Eos % (Auto) Baso % (Auto) Lymph # (Auto) Lander # (Auto) Eos # (Auto) Baso # (Auto) Abs Immat Gran (auto) Absolute Neuts (auto) Absolute Nucleated RBC Nucleated RBC % (auto) PT INR D-Dimer O2 Saturation ABG pH at Pt Temp ABG pH (Temp Correct) ABG pCO2 at Pt Temp ABG pCO2 (Temp Corrct ABG pO2 at Pt Temp ABG pO2 (Temp Correct ABG HCO3 ABG Base Excess (Actual) VBG pH 7.21 L VBG pCO2 79 VBG pO2 45 VBG HCO3 32 H VBG O2 Saturation 62.0 VBG Base Excess 1.2 Anion Gap Estim Creat Clear Calc Estimated GFR Random Glucose Lactic Acid Lactic Acid Fup @ 2Hr Calcium Magnesium Total Bilirubin Direct Bilirubin AST ALT Alkaline Phosphatase Total Creatine Kinase Troponin I High Sens 33.4 H* D B-Natriuretic Peptide Total Protein Albumin Urine Color BROWN Urine Appearance HAZY Urine pH 6.0 Ur Specific [place] 1.025 Urine Protein 2+ H Urine Glucose (UA) NEG Urine Ketones NEG Urine Blood NEG Urine Nitrite POS H Ur Leukocyte Esterase NEG Urine RBC 1-4 Urine WBC 0 Ur Squamous Epith Cells 1+ Urine Bacteria 1+ Hyaline Casts 0-2 Urine Mucus 1+ COVID-19 (JASWANT) COVID-19 Clin Com Imaging Radiologist's Impressions: Impressions Chest X-Ray 12/07/20 12:24 IMPRESSION: Diffuse lung disease similar to appearance to previous study representing chronic interstitial lung disease and scarring. Superimposed region of acute disease not excluded. Head CT 12/07/20 12:24 IMPRESSION: No acute intracranial abnormality. Assessment and Plan (1) Acute on chronic respiratory failure with hypoxia and hypercapnia: Status: Acute (2) Hypoxia: Status: Acute (3) Pulmonary fibrosis: Status: Acute (4) Lupus (systemic lupus erythematosus): Qualifiers: Systemic lupus erythematosus type: other Systemic lupus erythematosus organ involvement: unspecified Qualified Code(s): M32.8 - Other forms of systemic lupus erythematosus Status: Acute (5) Polyarthralgia: Status: Acute (6) COPD (chronic obstructive pulmonary disease): Status: Acute (7) HTN (hypertension): Status: Acute (8) CAD (coronary artery disease): Status: Acute (9) SOB (shortness of breath) on exertion: Status: Acute (10) Elevated LFTs: Status: Acute (11) Hyperkalemia: Status: Acute (12) Hypochloremia: Status: Acute (13) Hyponatremia: Status: Acute (14) Weakness: Status: Acute So we have a combination of extensive pulmonary fibrosis cannot completely rule out a superimposed acute process even pulmonary edema due to diastolic dysfunction but a profound low-flow state from predominant right heart failure and the most immediate benefit would be stopping metoprolol and reversing its affect with dopamine to increase cardiac output by virtue of heart rate and she will also need the ICU for rescue BiPAP which I think will improve her encephalopathy
[2020-12-07 17:55] LABS: Glucose, Whole Blood 58 mg/dL (60-115)
[2020-12-07 17:55] LABS: Glucose, Whole Blood 97 mg/dL (60-115)
[2020-12-07 17:55] LABS: Glucose, Whole Blood 41 mg/dL (60-115)
[2020-12-07 17:55] LABS: Glucose, Whole Blood 54 mg/dL (60-115)
[2020-12-07 17:55] LABS: Glucose, Whole Blood 60 mg/dL (60-115)
[2020-12-07 17:55] LABS: Glucose, Whole Blood 42 mg/dL (60-115)
[2020-12-07] MEDS: iohexoL 350 MG/ML 100 ML INFUS..BTL IV (18:14)
[2020-12-07] MEDS: DOPamine HCL/D5W 400 MG/250 ML PLAST..BAG 5.47 MG IVCONT (18:20)
--- NOTE | 2020-12-07 18:28 | PC.NURSE ---
dr villalpando in CT room when scan was done, verbally told this rn central line ok for use. dopamine started. weight in computer different than weight checked before med administration. patel herron aware and said ok to started med, parameters are per dr souza and to be started at certain rate/titration. starte per protocol (see med instructions in SEP). vitals stable at this time.
[2020-12-07] MEDS: Doxycycline Hyclate 100 MG in 0.9 % Sodium Chloride 250 ML 166.67 MG IV (18:42)
--- NOTE | 2020-12-07 19:12 | PC.NURSE ---
HR rated to roxi to 32-35. BP 88/32. OH notified. Provider at bedside. Per OH, to increase Dopamine to 5 mcg/kg/min. ICU PA at bedside for eval.
--- NOTE | 2020-12-07 19:30 | PC.NURSE ---
This RN calling pharmacy regarding Solumedrol infusion. Per lab, working on it.
[2020-12-07] MEDS: methylPREDNISolone Sod Succ 1,000 MG in 0.9 % Sodium Chloride 50 ML 66 MG IV (19:48)
--- NOTE | 2020-12-07 19:51 | PC.NURSE ---
Methylprednisolone infusing with Dopamine through triple lumen. Per Pharm, medications compatible. Repeat chemistries obtained and sent for analysis.
[2020-12-07 19:56] LABS: Blood Urea Nitrogen 29 mg/dL (9-16); Calcium 8.1 mg/dL (8.4-10.2); Creatinine Clr Calc Pharmacy 61.8; Estimated Glomerular Filt Rate > 60; Glucose Random 226 mg/dL (60-115)
[2020-12-07 20:06] LABS: Anion Gap 11 (12-20); Carbon Dioxide 30 mmol/L (22-29); Chloride 90 mmol/L (96-108); Potassium 4.6 mmol/L (3.3-5.1); Sodium 126 mmol/L (135-145)
--- NOTE | 2020-12-07 20:22 | PC.NURSE ---
Repeat Troponin obtained and sent. Pt resting in bed at this time with family at bedside. VSS however temperature remains low, bear hugger remains applied. Continue to monitor.
[2020-12-07 20:38] LABS: Glucose, Whole Blood 169 mg/dL (60-115)
[2020-12-07 21:04] LABS: Troponin-I High Sensitivity 24.7 ng/L (<3.5-17.0)
--- NOTE | 2020-12-07 21:19 | PC.NURSE ---
ICU remains unable to take report at this time.
--- NOTE | 2020-12-07 21:29 | PC.NURSE ---
Report given to THREAD DRAWER.
[2020-12-08] VITALS (34 sets, daily range): BP systolic 95–160; BP diastolic 31–93; PULSE 62–104; RESP 12–30; TEMP 35.5–37; O2SAT 25–100; BMI 28.8
--- NOTE | 2020-12-08 00:23 | W.PM.CCHP ---
Procedures Date of Service Date of Service: 12/07/20 Central Line Placement Right IJ: Central Line Comments: Previous TLC not sutured in place and migrating out of position. Consent for Procedure: Emergent-no informed consent obtained Time out performed: Yes Sterile Technique Used: Yes Patient placed on monitor/pulse ox: Yes prep: mask, gown and gloves Central line prep: Chlorhexidine scrub Ultrasound used for placement: Yes Central line lumen inserted: triple Post procedure: sutured in place, good blood return, all ports aspirated, flushed, capped and sterile dressing applied Post procedure x-ray: tip of catheter in good position and no pneumothorax seen Patient tolerated procedure: well and no complications Complications: none
[2020-12-08 00:43] LABS: Glucose, Whole Blood 132 mg/dL (60-115)
[2020-12-08 02:18] LABS: Glucose, Whole Blood 137 mg/dL (60-115)
[2020-12-08 02:24] LABS: ABG Refer to POC result
[2020-12-08 04:24] LABS: Glucose, Whole Blood 137 mg/dL (60-115)
[2020-12-08] MEDS: cefEPime HCl 1 GM in 0.9 % Sodium Chloride 50 ML IV (04:36)
[2020-12-08 05:22] LABS: VBG Base Excess 2.3 mmol/L; VBG HCO3 35 mmol/L (22-26); VBG pCO2 94 mmHg; VBG pH 7.17 (7.32-7.43); VBG pO2 55 mmHg
[2020-12-08] MEDS: Albuterol/Iprat 2.5/0.5MG 3 ML AMPUL.NEB INHALE ×4 (05:43→19:50)
[2020-12-08 06:15] LABS: Hematocrit 45.2 % (37-47); Hemoglobin 14.8 g/dl (12.0-16.0); Imm Gran Pct Auto 0.9 % (0.0-0.4); Lymphocytes Absolute Auto 0.2 X10*3/uL (1.2-4.9); Lymphocytes Percent Auto 2.1 % (20-40); MANUAL DIFF FLAG SCAN; Mean Corpuscular HGB Conc 32.7 g/dl (31.0-35.0); Mean Corpuscular Hemoglobin 31.8 pg (27.0-33.0); Mean Platelet Volume 9.2 fL (9.4-12.3); Monocytes Absolute Auto 0.4 X10*3/uL (0.1-1.2); Monocytes Percent Auto 3.7 % (2-11); Neutrophils Absolute Auto 10.5 X10*3/uL (2.0-8.3); Neutrophils Percent Auto 93.3 % (45-73); Platelet Count 293 X10*3/uL (160-400); Red Blood Count 4.66 X10*6/uL (4.20-5.50); SCAN SMEAR FLAG 1; White Blood Count 11.3 X10*3/uL (4.8-10.8)
--- NOTE | 2020-12-08 06:18 | PC.NURSE ---
Pt admitted to ICU at approx 2200. Upon initial assessment- pt lethargic, unarousable. E[place] hugger taken off, temp > 96. NSR on tele, dopamine titrated to maintain MAP > 65. NRB titrated to NC. D10 running per order, POC checked q2h. Critical VBG results this AM reported to PA. Placed on bipap 14/5/30%. Becoming slightly more alert throughout shift, raising arms, asking where she is, others remains disoriented. [place]as[place] in place, urine tea colored, UOP approx 30 ml/hr. Skin intact, repositioned q2h, on air loss bed. Family called/updated.
[2020-12-08 06:25] LABS: INTERNATIONAL NORM RATIO 1.4 (0.9-1.1); Prothrombin Time 16.9 SEC (10.8-13.0)
[2020-12-08 06:33] LABS: Partial Thromboplastin Time 42.8 SEC (24.1-38.0)
[2020-12-08 06:46] LABS: SLIDE REVIEW VERIFIED
[2020-12-08 07:04] LABS: Anion Gap 17 (12-20); Blood Urea Nitrogen 29 mg/dL (9-16); Calcium 7.5 mg/dL (8.4-10.2); Carbon Dioxide 22 mmol/L (22-29); Chloride 91 mmol/L (96-108); Creatinine Clr Calc Pharmacy 64.1; Estimated Glomerular Filt Rate > 60; Glucose Random 179 mg/dL (60-115); Magnesium 1.7 mg/dL (1.6-2.6); Phosphorus 5.5 mg/dL (2.7-4.5); Potassium 5.6 mmol/L (3.3-5.1); Sodium 124 mmol/L (135-145)
[2020-12-08 07:19] LABS: Venous Blood Gas Refer to POC result
[2020-12-08 07:50] LABS: Glucose, Whole Blood 158 mg/dL (60-115)
[2020-12-08 08:10] LABS: VBG Base Excess 1.5 mmol/L; VBG HCO3 33 mmol/L (22-26); VBG pCO2 88 mmHg; VBG pH 7.18 (7.32-7.43); VBG pO2 55 mmHg
[2020-12-08 08:29] LABS: Venous Blood Gas Refer to POC result
[2020-12-08] MEDS: methylPREDNISolone Sod Succ 1,000 MG in 0.9 % Sodium Chloride 50 ML 66 MG IV (08:53)
[2020-12-08 09:03] LABS: Glucose, Whole Blood 157 mg/dL (60-115)
[2020-12-08] MEDS: Doxycycline Hyclate 100 MG in 0.9 % Sodium Chloride 250 ML 166.67 MG IV ×2 (09:09→20:07)
--- NOTE | 2020-12-08 10:18 | P.CDIC_ITS ---
CDI Concurrent Query Service Date: 12/08/20 Documentation Clarification: Please clarify if you are treating a proba ble/suspected/likely or confirmed: Hyponatremia Please specify if known PLEASE DO NOT DELETE/MODIFY EXISTING CONTENT Additional information is needed in order to code to the highest accuracy and appropriate Severity of Illness (SOI). Please clarify the information noted below in your progress notes and discharge summary. Risk Factors/Clinical Indicators/Treatments LAB FINDINGS: sodium 126 L 124 L CDS: Thalia Chawla CCS, [facility]IS Contact Number: [phone] Please Review the information above and exercise your independent professional judgment in responding to the query. If you concur, pleas document in the PROGRESS NOTES and DISCHARGE SUMMARY. If you do not agree with the query, please document in the query above. THIS QUERY IS PART OF THE PERMANENT MEDICAL RECORD
--- NOTE | 2020-12-08 10:20 | P.CDIC_ITS ---
CDI Concurrent Query Service Date: 12/08/20 Documentation Clarification: Please clarify if you are treating a proba ble/suspected/likely or confirmed: Labs: Hyperkalemia Please specify if known PLEASE DO NOT DELETE/MODIFY EXISTING CONTENT Additional information is needed in order to code to the highest accuracy and appropriate Severity of Illness (SOI). Please clarify the information noted below in your progress notes and discharge summary. Risk Factors/Clinical Indicators/Treatments LAB FINDINGS: potassium 5.4 H CDS: Thalia Chawla CCS, CDIS Contact Number: [phone] Please Review the information above and exercise your independent professional judgment in responding to the query. If you concur, pleas document in the PROGRESS NOTES and DISCHARGE SUMMARY. If you do not agree with the query, please document in the query above. THIS QUERY IS PART OF THE PERMANENT MEDICAL RECORD
[2020-12-08 11:22] LABS: Glucose, Whole Blood 153 mg/dL (60-115)
[2020-12-08 12:44] LABS: VBG Base Excess 1.8 mmol/L; VBG HCO3 32 mmol/L (22-26); VBG pCO2 78 mmHg; VBG pH 7.22 (7.32-7.43); VBG pO2 54 mmHg
[2020-12-08 12:47] LABS: Venous Blood Gas Refer to POC result
[2020-12-08] MEDS: DOPamine HCL/D5W 400 MG/250 ML PLAST..BAG 12.75 MG IVCONT (12:59)
[2020-12-08 13:00] LABS: Glucose, Whole Blood 142 mg/dL (60-115)
[2020-12-08 13:54] LABS: VBG Base Excess 2.4 mmol/L; VBG HCO3 33 mmol/L (22-26); VBG pCO2 79 mmHg; VBG pO2 56 mmHg
[2020-12-08 13:58] LABS: VBG pH 7.22 (7.32-7.43)
[2020-12-08 14:47] LABS: Glucose, Whole Blood 135 mg/dL (60-115)
--- NOTE | 2020-12-08 15:35 | PM.CCPN ---
Subjective Subjective Date of Service: 12/08/20 Interval History: 80-year-old female with severe interstitial fibrotic lung disease from lupus and formerly on Plaquenil with a week of progressive dyspnea and weakness presenting with acute on chronic hypercarbic and hypoxic respiratory failure with dense acrocyanosis of all 4 extremities and altered mental status clearly high metabolic encephalopathy She had predominant right heart failure with significant dilatation of the right heart and poor systolic function with low pulmonary artery pressures because of systolic dysfunction with secondary passive congestion of her liver and elevation of liver function tests but also severe low-flow state with with acute on chronic renal failure Remains in normal sinus rhythm but with rates now between 70 and 80 and she is beginning to awaken as she slowly improves her pCO2 down from the 90s now to the 70s with gradually improving pH and at the settings we have now on BiPAP she slowly improving and will stay stable and it is also helping to preserve urine output and we have an ever diminishing degree of acrocyanosis Critical Care Time (minutes): 35 Physical Exam Vital Signs: Vital Signs: Last Vital Signs Temp 97.3 F 12/08/20 15:00 Pulse 81 12/08/20 15:00 Resp 24 H 12/08/20 15:00 BP 147/45 H 12/08/20 15:00 Pulse Ox 96 12/08/20 15:00 Body Mass Index 28.8 Const: Other: Color is improving and cognitive function is improving and urine output is improving Stable cardiac exam with very elevated CVP of 24 consistent with this predominant right heart failure Chest with coarse bilateral rales but no wheezing Abdomen soft benign good bowel sounds Objective Data Labs CBC & Chem 7: 12/09/20 05:19 12/09/20 05:19 Labs: Laboratory Results - last 24 hr 12/07/20 12/07/20 12/07/20 15:59 16:03 16:15 WBC RBC Hgb Hct MCV MCH MCHC RDW Plt Count MPV Immature Gran % (Auto) Neut % (Auto) Lymph % (Auto) [place] % (Auto) Eos % (Auto) Baso % (Auto) Lymph # (Auto) [place] # (Auto) Eos # (Auto) Baso # (Auto) Abs Immat Gran (auto) Absolute Neuts (auto) Absolute Nucleated RBC Nucleated RBC % (auto) Smear Tech's Comments PT INR APTT D-Dimer O2 Saturation 99.0 ABG pH at Pt Temp 7.28 L ABG pH (Temp Correct) 7.29 L ABG pCO2 at Pt Temp 66 H* ABG pCO2 (Temp Corrct 65 H* ABG pO2 at Pt Temp 171 H ABG pO2 (Temp Correct 168 H ABG HCO3 31 H ABG Base Excess (Actual) 2.7 VBG pH VBG pCO2 VBG pO2 VBG HCO3 VBG O2 Saturation VBG Base Excess Sodium Potassium Chloride Carbon Dioxide Anion Gap BUN Creatinine Estim Creat Clear Calc Estimated GFR POC Glucose 41 L* 42 L* Random Glucose Lactic Acid Fup @ 2Hr Calcium Phosphorus Magnesium Total Bilirubin Direct Bilirubin AST ALT Alkaline Phosphatase Total Creatine Kinase Troponin I High Sens Total Protein Albumin Urine Color Urine Appearance Urine pH Ur Specific [place] Urine Protein Urine Glucose (UA) Urine Ketones Urine Blood Urine Nitrite Ur Leukocyte Esterase Urine RBC Urine WBC Ur Squamous Epith Cells Urine Bacteria Hyaline Casts Urine Mucus 12/07/20 12/07/20 12/07/20 16:22 16:22 16:22 WBC RBC Hgb Hct MCV MCH MCHC RDW Plt Count MPV Immature Gran % (Auto) Neut % (Auto) Lymph % (Auto) [place] % (Auto) Eos % (Auto) Baso % (Auto) Lymph # (Auto) [place] # (Auto) Eos # (Auto) Baso # (Auto) Abs Immat Gran (auto) Absolute Neuts (auto) Absolute Nucleated RBC Nucleated RBC % (auto) Smear Tech's Comments PT 19.1 H INR 1.6 H APTT D-Dimer 635 O2 Saturation ABG pH at Pt Temp ABG pH (Temp Correct) ABG pCO2 at Pt Temp ABG pCO2 (Temp Corrct ABG pO2 at Pt Temp ABG pO2 (Temp Correct ABG HCO3 ABG Base Excess (Actual) VBG pH VBG pCO2 VBG pO2 VBG HCO3 VBG O2 Saturation VBG Base Excess Sodium 126 L Potassium 5.4 H Chloride 87 L Carbon Dioxide 28 Anion Gap 16 BUN 29 H D Creatinine 0.86 Estim Creat Clear Calc 52.4 Estimated GFR > 60 POC Glucose Random Glucose 210 H D Lactic Acid Fup @ 2Hr 2.0 Calcium 8.0 L D Phosphorus Magnesium 1.8 Total Bilirubin 0.7 Direct Bilirubin 0.5 AST 636 H ALT 416 H Alkaline Phosphatase 135 H Total Creatine Kinase Troponin I High Sens Total Protein 5.6 L Albumin 2.4 L D Urine Color Urine Appearance Urine pH Ur Specific [place] Urine Protein Urine Glucose (UA) Urine Ketones Urine Blood Urine Nitrite Ur Leukocyte Esterase Urine RBC Urine WBC Ur Squamous Epith Cells Urine Bacteria Hyaline Casts Urine Mucus 12/07/20 12/07/20 12/07/20 16:23 16:23 16:23 WBC RBC Hgb Hct MCV MCH MCHC RDW Plt Count MPV Immature Gran % (Auto) Neut % (Auto) Lymph % (Auto) [place] % (Auto) Eos % (Auto) Baso % (Auto) Lymph # (Auto) [place] # (Auto) Eos # (Auto) Baso # (Auto) Abs Immat Gran (auto) Absolute Neuts (auto) Absolute Nucleated RBC Nucleated RBC % (auto) Smear Tech's Comments PT INR APTT D-Dimer O2 Saturation ABG pH at Pt Temp ABG pH (Temp Correct) ABG pCO2 at Pt Temp ABG pCO2 (Temp Corrct ABG pO2 at Pt Temp ABG pO2 (Temp Correct ABG HCO3 ABG Base Excess (Actual) VBG pH VBG pCO2 VBG pO2 VBG HCO3 VBG O2 Saturation VBG Base Excess Sodium Potassium Chloride Carbon Dioxide Anion Gap BUN Creatinine Estim Creat Clear Calc Estimated GFR POC Glucose Random Glucose Lactic Acid Fup @ 2Hr Calcium Phosphorus Magnesium Total Bilirubin Direct Bilirubin AST ALT Alkaline Phosphatase Total Creatine Kinase 260 H Troponin I High Sens 33.4 H* D Total Protein Albumin Urine Color BROWN Urine Appearance HAZY Urine pH 6.0 Ur Specific [place] 1.025 Urine Protein 2+ H Urine Glucose (UA) NEG Urine Ketones NEG Urine Blood NEG Urine Nitrite POS H Ur Leukocyte Esterase NEG Urine RBC 1-4 Urine WBC 0 Ur Squamous Epith Cells 1+ Urine Bacteria 1+ Hyaline Casts 0-2 Urine Mucus 1+ 12/07/20 12/07/20 12/07/20 16:24 16:28 16:28 WBC RBC Hgb Hct MCV MCH MCHC RDW Plt Count MPV Immature Gran % (Auto) Neut % (Auto) Lymph % (Auto) [place] % (Auto) Eos % (Auto) Baso % (Auto) Lymph # (Auto) [place] # (Auto) Eos # (Auto) Baso # (Auto) Abs Immat Gran (auto) Absolute Neuts (auto) Absolute Nucleated RBC Nucleated RBC % (auto) Smear Tech's Comments PT INR APTT D-Dimer O2 Saturation ABG pH at Pt Temp ABG pH (Temp Correct) ABG pCO2 at Pt Temp ABG pCO2 (Temp Corrct ABG pO2 at Pt Temp ABG pO2 (Temp Correct ABG HCO3 ABG Base Excess (Actual) VBG pH 7.21 L VBG pCO2 79 VBG pO2 45 VBG HCO3 32 H VBG O2 Saturation 62.0 VBG Base Excess 1.2 Sodium Potassium Chloride Carbon Dioxide Anion Gap BUN Creatinine Estim Creat Clear Calc Estimated GFR POC Glucose 60 58 L* Random Glucose Lactic Acid Fup @ 2Hr Calcium Phosphorus Magnesium Total Bilirubin Direct Bilirubin AST ALT Alkaline Phosphatase Total Creatine Kinase Troponin I High Sens Total Protein Albumin Urine Color Urine Appearance Urine pH Ur Specific [place] Urine Protein Urine Glucose (UA) Urine Ketones Urine Blood Urine Nitrite Ur Leukocyte Esterase Urine RBC Urine WBC Ur Squamous Epith Cells Urine Bacteria Hyaline Casts Urine Mucus 12/07/20 12/07/20 12/07/20 16:59 17:51 19:26 WBC RBC Hgb Hct MCV MCH MCHC RDW Plt Count MPV Immature Gran % (Auto) Neut % (Auto) Lymph % (Auto) [place] % (Auto) Eos % (Auto) Baso % (Auto) Lymph # (Auto) [place] # (Auto) Eos # (Auto) Baso # (Auto) Abs Immat Gran (auto) Absolute Neuts (auto) Absolute Nucleated RBC Nucleated RBC % (auto) Smear Tech's Comments PT INR APTT D-Dimer O2 Saturation ABG pH at Pt Temp ABG pH (Temp Correct) ABG pCO2 at Pt Temp ABG pCO2 (Temp Corrct ABG pO2 at Pt Temp ABG pO2 (Temp Correct ABG HCO3 ABG Base Excess (Actual) VBG pH VBG pCO2 VBG pO2 VBG HCO3 VBG O2 Saturation VBG Base Excess Sodium 126 L Potassium 4.6 Chloride 90 L Carbon Dioxide 30 H Anion Gap 11 L BUN 29 H Creatinine 0.84 Estim Creat Clear Calc 61.8 Estimated GFR > 60 POC Glucose 54 L* 97 Random Glucose 226 H Lactic Acid Fup @ 2Hr Calcium 8.1 L Phosphorus Magnesium Total Bilirubin Direct Bilirubin AST ALT Alkaline Phosphatase Total Creatine Kinase Troponin I High Sens Total Protein Albumin Urine Color Urine Appearance Urine pH Ur Specific [place] Urine Protein Urine Glucose (UA) Urine Ketones Urine Blood Urine Nitrite Ur Leukocyte Esterase Urine RBC Urine WBC Ur Squamous Epith Cells Urine Bacteria Hyaline Casts Urine Mucus 12/07/20 12/07/20 12/08/20 20:18 20:25 00:33 WBC RBC Hgb Hct MCV MCH MCHC RDW Plt Count MPV Immature Gran % (Auto) Neut % (Auto) Lymph % (Auto) [place] % (Auto) Eos % (Auto) Baso % (Auto) Lymph # (Auto) [place] # (Auto) Eos # (Auto) Baso # (Auto) Abs Immat Gran (auto) Absolute Neuts (auto) Absolute Nucleated RBC Nucleated RBC % (auto) Smear Tech's Comments PT INR APTT D-Dimer O2 Saturation ABG pH at Pt Temp ABG pH (Temp Correct) ABG pCO2 at Pt Temp ABG pCO2 (Temp Corrct ABG pO2 at Pt Temp ABG pO2 (Temp Correct ABG HCO3 ABG Base Excess (Actual) VBG pH VBG pCO2 VBG pO2 VBG HCO3 VBG O2 Saturation VBG Base Excess Sodium Potassium Chloride Carbon Dioxide Anion Gap BUN Creatinine Estim Creat Clear Calc Estimated GFR POC Glucose 169 H 132 H Random Glucose Lactic Acid Fup @ 2Hr Calcium Phosphorus Magnesium Total Bilirubin Direct Bilirubin AST ALT Alkaline Phosphatase Total Creatine Kinase Troponin I High Sens 24.7 H* Total Protein Albumin Urine Color Urine Appearance Urine pH Ur Specific [place] Urine Protein Urine Glucose (UA) Urine Ketones Urine Blood Urine Nitrite Ur Leukocyte Esterase Urine RBC Urine WBC Ur Squamous Epith Cells Urine Bacteria Hyaline Casts Urine Mucus 12/08/20 12/08/20 12/08/20 02:14 04:21 05:00 WBC 11.3 H RBC 4.66 Hgb 14.8 Hct 45.2 MCV 97.0 MCH 31.8 MCHC 32.7 RDW 14.0 Plt Count 293 MPV 9.2 L Immature Gran % (Auto) 0.9 H Neut % (Auto) 93.3 H Lymph % (Auto) 2.1 L [place] % (Auto) 3.7 Eos % (Auto) 0.0 Baso % (Auto) 0.0 Lymph # (Auto) 0.2 L [place] # (Auto) 0.4 Eos # (Auto) 0.0 Baso # (Auto) 0.0 Abs Immat Gran (auto) 0.10 H Absolute Neuts (auto) 10.5 H Absolute Nucleated RBC 0.000 Nucleated RBC % (auto) 0.0 Smear Tech's Comments VERIFIED PT INR APTT D-Dimer O2 Saturation ABG pH at Pt Temp ABG pH (Temp Correct) ABG pCO2 at Pt Temp ABG pCO2 (Temp Corrct ABG pO2 at Pt Temp ABG pO2 (Temp Correct ABG HCO3 ABG Base Excess (Actual) VBG pH VBG pCO2 VBG pO2 VBG HCO3 VBG O2 Saturation VBG Base Excess Sodium Potassium Chloride Carbon Dioxide Anion Gap BUN Creatinine Estim Creat Clear Calc Estimated GFR POC Glucose 137 H 137 H Random Glucose Lactic Acid Fup @ 2Hr Calcium Phosphorus Magnesium Total Bilirubin Direct Bilirubin AST ALT Alkaline Phosphatase Total Creatine Kinase Troponin I High Sens Total Protein Albumin Urine Color Urine Appearance Urine pH Ur Specific [place] Urine Protein Urine Glucose (UA) Urine Ketones Urine Blood Urine Nitrite Ur Leukocyte Esterase Urine RBC Urine WBC Ur Squamous Epith Cells Urine Bacteria Hyaline Casts Urine Mucus 12/08/20 12/08/20 12/08/20 05:00 05:00 05:13 WBC RBC Hgb Hct MCV MCH MCHC RDW Plt Count MPV Immature Gran % (Auto) Neut % (Auto) Lymph % (Auto) [place] % (Auto) Eos % (Auto) Baso % (Auto) Lymph # (Auto) [place] # (Auto) Eos # (Auto) Baso # (Auto) Abs Immat Gran (auto) Absolute Neuts (auto) Absolute Nucleated RBC Nucleated RBC % (auto) Smear Tech's Comments PT 16.9 H INR 1.4 H APTT 42.8 H D-Dimer O2 Saturation ABG pH at Pt Temp ABG pH (Temp Correct) ABG pCO2 at Pt Temp ABG pCO2 (Temp Corrct ABG pO2 at Pt Temp ABG pO2 (Temp Correct ABG HCO3 ABG Base Excess (Actual) VBG pH 7.17 L* VBG pCO2 94 VBG pO2 55 VBG HCO3 35 H VBG O2 Saturation 75.0 VBG Base Excess 2.3 Sodium 124 L Potassium 5.6 H D Chloride 91 L Carbon Dioxide 22 Anion Gap 17 BUN 29 H Creatinine 0.81 Estim Creat Clear Calc 64.1 Estimated GFR > 60 POC Glucose Random Glucose 179 H Lactic Acid Fup @ 2Hr Calcium 7.5 L D Phosphorus 5.5 H Magnesium 1.7 Total Bilirubin Direct Bilirubin AST ALT Alkaline Phosphatase Total Creatine Kinase Troponin I High Sens Total Protein Albumin Urine Color Urine Appearance Urine pH Ur Specific [place] Urine Protein Urine Glucose (UA) Urine Ketones Urine Blood Urine Nitrite Ur Leukocyte Esterase Urine RBC Urine WBC Ur Squamous Epith Cells Urine Bacteria Hyaline Casts Urine Mucus 12/08/20 12/08/20 12/08/20 07:46 08:03 09:00 WBC RBC Hgb Hct MCV MCH MCHC RDW Plt Count MPV Immature Gran % (Auto) Neut % (Auto) Lymph % (Auto) [place] % (Auto) Eos % (Auto) Baso % (Auto) Lymph # (Auto) [place] # (Auto) Eos # (Auto) Baso # (Auto) Abs Immat Gran (auto) Absolute Neuts (auto) Absolute Nucleated RBC Nucleated RBC % (auto) Smear Tech's Comments PT INR APTT D-Dimer O2 Saturation ABG pH at Pt Temp ABG pH (Temp Correct) ABG pCO2 at Pt Temp ABG pCO2 (Temp Corrct ABG pO2 at Pt Temp ABG pO2 (Temp Correct ABG HCO3 ABG Base Excess (Actual) VBG pH 7.18 L* VBG pCO2 88 VBG pO2 55 VBG HCO3 33 H VBG O2 Saturation 76.0 VBG Base Excess 1.5 Sodium Potassium Chloride Carbon Dioxide Anion Gap BUN Creatinine Estim Creat Clear Calc Estimated GFR POC Glucose 158 H 157 H Random Glucose Lactic Acid Fup @ 2Hr Calcium Phosphorus Magnesium Total Bilirubin Direct Bilirubin AST ALT Alkaline Phosphatase Total Creatine Kinase Troponin I High Sens Total Protein Albumin Urine Color Urine Appearance Urine pH Ur Specific [place] Urine Protein Urine Glucose (UA) Urine Ketones Urine Blood Urine Nitrite Ur Leukocyte Esterase Urine RBC Urine WBC Ur Squamous Epith Cells Urine Bacteria Hyaline Casts Urine Mucus 12/08/20 12/08/20 12/08/20 10:06 10:24 12:37 WBC RBC Hgb Hct MCV MCH MCHC RDW Plt Count MPV Immature Gran % (Auto) Neut % (Auto) Lymph % (Auto) [place] % (Auto) Eos % (Auto) Baso % (Auto) Lymph # (Auto) [place] # (Auto) Eos # (Auto) Baso # (Auto) Abs Immat Gran (auto) Absolute Neuts (auto) Absolute Nucleated RBC Nucleated RBC % (auto) Smear Tech's Comments PT INR APTT D-Dimer O2 Saturation ABG pH at Pt Temp ABG pH (Temp Correct) ABG pCO2 at Pt Temp ABG pCO2 (Temp Corrct ABG pO2 at Pt Temp ABG pO2 (Temp Correct ABG HCO3 ABG Base Excess (Actual) VBG pH 7.22 L 7.22 L VBG pCO2 79 78 VBG pO2 56 54 VBG HCO3 33 H 32 H VBG O2 Saturation 75.0 75.0 VBG Base Excess 2.4 1.8 Sodium Potassium Chloride Carbon Dioxide Anion Gap BUN Creatinine Estim Creat Clear Calc Estimated GFR POC Glucose 153 H Random Glucose Lactic Acid Fup @ 2Hr Calcium Phosphorus Magnesium Total Bilirubin Direct Bilirubin AST ALT Alkaline Phosphatase Total Creatine Kinase Troponin I High Sens Total Protein Albumin Urine Color Urine Appearance Urine pH Ur Specific [place] Urine Protein Urine Glucose (UA) Urine Ketones Urine Blood Urine Nitrite Ur Leukocyte Esterase Urine RBC Urine WBC Ur Squamous Epith Cells Urine Bacteria Hyaline Casts Urine Mucus 12/08/20 12/08/20 12:57 14:44 WBC RBC Hgb Hct MCV MCH MCHC RDW Plt Count MPV Immature Gran % (Auto) Neut % (Auto) Lymph % (Auto) [place] % (Auto) Eos % (Auto) Baso % (Auto) Lymph # (Auto) [place] # (Auto) Eos # (Auto) Baso # (Auto) Abs Immat Gran (auto) Absolute Neuts (auto) Absolute Nucleated RBC Nucleated RBC % (auto) Smear Tech's Comments PT INR APTT D-Dimer O2 Saturation ABG pH at Pt Temp ABG pH (Temp Correct) ABG pCO2 at Pt Temp ABG pCO2 (Temp Corrct ABG pO2 at Pt Temp ABG pO2 (Temp Correct ABG HCO3 ABG Base Excess (Actual) VBG pH VBG pCO2 VBG pO2 VBG HCO3 VBG O2 Saturation VBG Base Excess Sodium Potassium Chloride Carbon Dioxide Anion Gap BUN Creatinine Estim Creat Clear Calc Estimated GFR POC Glucose 142 H 135 H Random Glucose Lactic Acid Fup @ 2Hr Calcium Phosphorus Magnesium Total Bilirubin Direct Bilirubin AST ALT Alkaline Phosphatase Total Creatine Kinase Troponin I High Sens Total Protein Albumin Urine Color Urine Appearance Urine pH Ur Specific [place] Urine Protein Urine Glucose (UA) Urine Ketones Urine Blood Urine Nitrite Ur Leukocyte Esterase Urine RBC Urine WBC Ur Squamous Epith Cells Urine Bacteria Hyaline Casts Urine Mucus Microbiology Microbiology Results: Microbiology 12/07/20 12:53 Blood - Venous Blood Culture - Preliminary No growth after 24 hours. 12/07/20 16:23 Urine [place] Urine Culture - Preliminary No growth to date. Progress Note: A&P Assessment and plan (1) Acute on chronic respiratory failure with hypoxia and hypercapnia: Status: Acute (2) Hypoglycemia: Status: Acute (3) Weakness: Status: Acute (4) Leukocytosis: Status: Acute (5) Hyponatremia: Status: Acute (6) Hypochloremia: Status: Acute (7) Hyperkalemia: Status: Acute (8) Elevated LFTs: Status: Acute (9) Osteoporosis: Status: Acute (10) SOB (shortness of breath) on exertion: Status: Acute (11) CAD (coronary artery disease): Status: Acute (12) HTN (hypertension): Status: Acute (13) COPD (chronic obstructive pulmonary disease): Status: Acute (14) Polyarthralgia: Status: Acute (15) Lupus (systemic lupus erythematosus): Status: Acute (16) Pulmonary fibrosis: Status: Acute (17) Acute metabolic encephalopathy: Status: Acute Assessment and Plan: All told with dopamine supporting heart rate and and BiPAP improving minute ventilation and therefore reversing the hypercarbic respiratory failure and the ensuing encephalopathy she is doing better and we will continue the same level of support
[2020-12-08 16:19] LABS: Glucose, Whole Blood 128 mg/dL (60-115)
[2020-12-08 16:42] LABS: VBG Base Excess 3.3 mmol/L; VBG HCO3 33 mmol/L (22-26); VBG pCO2 72 mmHg; VBG pH 7.26 (7.32-7.43); VBG pO2 58 mmHg
[2020-12-08 17:40] LABS: Lactic Acid 1.1 mmol/L (0.5-2.0)
[2020-12-08 17:47] LABS: Anion Gap 12 (12-20); Blood Urea Nitrogen 27 mg/dL (9-16); Calcium 8.2 mg/dL (8.4-10.2); Carbon Dioxide 28 mmol/L (22-29); Chloride 90 mmol/L (96-108); Creatinine Clr Calc Pharmacy 67.7; Estimated Glomerular Filt Rate > 60; Glucose Random 135 mg/dL (60-115); Potassium 5.4 mmol/L (3.3-5.1); Sodium 125 mmol/L (135-145)
[2020-12-08 17:47] LABS: Glucose, Whole Blood 136 mg/dL (60-115)
[2020-12-08 19:03] LABS: Venous Blood Gas Refer to POC result
[2020-12-08 19:56] LABS: Glucose, Whole Blood 116 mg/dL (60-115)
[2020-12-08 20:34] LABS: VBG Base Excess 3.5 mmol/L; VBG HCO3 32 mmol/L (22-26); VBG pCO2 67 mmHg; VBG pH 7.29 (7.32-7.43); VBG pO2 63 mmHg
[2020-12-08 20:48] LABS: Venous Blood Gas Refer to POC result
[2020-12-08 21:11] LABS: Anion Gap 13 (12-20); Blood Urea Nitrogen 26 mg/dL (9-16); Calcium 7.9 mg/dL (8.4-10.2); Carbon Dioxide 27 mmol/L (22-29); Chloride 91 mmol/L (96-108); Creatinine Clr Calc Pharmacy 67.7; Estimated Glomerular Filt Rate > 60; Glucose Random 131 mg/dL (60-115); Potassium 5.4 mmol/L (3.3-5.1); Sodium 126 mmol/L (135-145)
[2020-12-08 21:18] LABS: B Type Natriuretic Peptide 2160 pg/mL (<100)
[2020-12-08 22:28] LABS: Glucose, Whole Blood 75 mg/dL (60-115)
[2020-12-09] VITALS (38 sets, daily range): BP systolic 98–139; BP diastolic 34–95; PULSE 73–99; RESP 12–100; TEMP 36.3–36.9; O2SAT 84–100; BMI 30.7
[2020-12-09 00:29] LABS: Glucose, Whole Blood 172 mg/dL (60-115)
[2020-12-09 02:33] LABS: Glucose, Whole Blood 161 mg/dL (60-115)
[2020-12-09 04:03] LABS: Glucose, Whole Blood 120 mg/dL (60-115)
[2020-12-09] MEDS: Albuterol/Iprat 2.5/0.5MG 3 ML AMPUL.NEB INHALE ×5 (05:10→21:46)
[2020-12-09 05:39] LABS: VBG Base Excess 5.6 mmol/L; VBG HCO3 35 mmol/L (22-26); VBG pCO2 70 mmHg; VBG pO2 69 mmHg
[2020-12-09 05:45] LABS: Venous Blood Gas Refer to POC result
[2020-12-09 05:55] LABS: Basophils Percent Auto 0.1 % (0-2); Hematocrit 43.1 % (37-47); Hemoglobin 14.3 g/dl (12.0-16.0); Imm Gran Abs Auto 0.05 X10*3/uL (0.00-0.03); Imm Gran Pct Auto 0.4 % (0.0-0.4); Lymphocytes Absolute Auto 0.5 X10*3/uL (1.2-4.9); Lymphocytes Percent Auto 3.9 % (20-40); MANUAL DIFF FLAG SCAN; Mean Corpuscular HGB Conc 33.2 g/dl (31.0-35.0); Mean Corpuscular Hemoglobin 31.9 pg (27.0-33.0); Mean Corpuscular Volume 96.2 fL (80-98); Mean Platelet Volume 9.1 fL (9.4-12.3); Monocytes Absolute Auto 0.9 X10*3/uL (0.1-1.2); Monocytes Percent Auto 7.9 % (2-11); Neutrophils Absolute Auto 10.4 X10*3/uL (2.0-8.3); Neutrophils Percent Auto 87.7 % (45-73); Platelet Count 245 X10*3/uL (160-400); Red Blood Count 4.48 X10*6/uL (4.20-5.50); Red Cell Distribution Width 14.1 % (11.0-16.0); SCAN SMEAR FLAG 1; White Blood Count 11.8 X10*3/uL (4.8-10.8)
[2020-12-09 06:02] LABS: INTERNATIONAL NORM RATIO 1.5 (0.9-1.1); Prothrombin Time 17.5 SEC (10.8-13.0)
[2020-12-09 06:04] LABS: Partial Thromboplastin Time 33.9 SEC (24.1-38.0)
[2020-12-09 06:23] LABS: Anion Gap 11 (12-20); Blood Urea Nitrogen 27 mg/dL (9-16); Calcium 7.9 mg/dL (8.4-10.2); Carbon Dioxide 30 mmol/L (22-29); Chloride 91 mmol/L (96-108); Creatinine Clr Calc Pharmacy 68.5; Estimated Glomerular Filt Rate > 60; Glucose Random 152 mg/dL (60-115); Magnesium 1.7 mg/dL (1.6-2.6); Phosphorus 3.6 mg/dL (2.7-4.5); Sodium 127 mmol/L (135-145)
[2020-12-09 06:25] LABS: B Type Natriuretic Peptide 2508 pg/mL (<100)
[2020-12-09 06:50] LABS: SLIDE REVIEW VERIFIED
[2020-12-09] MEDS: DOPamine HCL/D5W 400 MG/250 ML PLAST..BAG 12.75 MG IVCONT (07:24)
[2020-12-09 08:46] LABS: Glucose, Whole Blood 127 mg/dL (60-115)
[2020-12-09] MEDS: Doxycycline Hyclate 100 MG in 0.9 % Sodium Chloride 250 ML 166.67 MG IV ×2 (09:00→19:58)
[2020-12-09] MEDS: methylPREDNISolone Sod Succ 1,000 MG in 0.9 % Sodium Chloride 50 ML 66 MG IV (09:01)
--- NOTE | 2020-12-09 10:16 | P.PNCC_ITS ---
Subjective Subjective Date of Service: 12/09/20 Critical Care Time (minutes): 35 Comment: 80-year-old female with history of lupus and formerly on Plaquenil currently receiving pulse steroid therapy who came in with a acute on chronic hypercarbic and hypoxic respiratory failure with secondary encephalopathy resolving on BiPAP and due to the severe bradycardia induced by metoprolol cardiac output overall improved on dopamine and the acrocyanosis is disappearing urine output and therefore renal function is improving she is slowly decreasing her respiratory acidosis and cognitive function is better to the point where we will give her clear liquids at least and intermittent breaks from the BiPAP Peers to be advanced pulmonary fibrosis with secondary acute on chronic cor pulmonale and with ground-glass infiltrate I can not rule out from diastolic dysfunction an element of interest intrathoracic edema of verses a in the no atypical infection or active inflammatory at infiltrate Physical Exam Vital Signs: Vital Signs: Last Vital Signs Temp 97.5 F 12/09/20 09:44 Pulse 92 12/09/20 09:44 Resp 16 12/09/20 09:44 BP 137/34 L 12/09/20 10:07 Pulse Ox 100 12/09/20 09:44 Body Mass Index 30.7 Const: Other: More awake and appropriate and nonfocal Skin color is improving Coarse bilateral rales but no wheezing Cardiac with without any significant murmurs or gallops and CVP is down from 24 to 12 Abdomen benign Objective Data Labs CBC & Chem 7: 12/09/20 05:19 12/09/20 05:19 Labs: Laboratory Results - last 24 hr 12/08/20 12/08/20 12/08/20 10:06 10:24 12:37 WBC RBC Hgb Hct MCV MCH MCHC RDW Plt Count MPV Immature Gran % (Auto) Neut % (Auto) Lymph % (Auto) [place] % (Auto) Eos % (Auto) Baso % (Auto) Lymph # (Auto) [place] # (Auto) Eos # (Auto) Baso # (Auto) Abs Immat Gran (auto) Absolute Neuts (auto) Absolute Nucleated RBC Nucleated RBC % (auto) Smear Tech's Comments PT INR APTT VBG pH 7.22 L 7.22 L VBG pCO2 79 78 VBG pO2 56 54 VBG HCO3 33 H 32 H VBG O2 Saturation 75.0 75.0 VBG Base Excess 2.4 1.8 Sodium Potassium Chloride Carbon Dioxide Anion Gap BUN Creatinine Estim Creat Clear Calc Estimated GFR POC Glucose 153 H Random Glucose Lactic Acid Calcium Phosphorus Magnesium B-Natriuretic Peptide 12/08/20 12/08/20 12/08/20 12:57 14:44 16:16 WBC RBC Hgb Hct MCV MCH MCHC RDW Plt Count MPV Immature Gran % (Auto) Neut % (Auto) Lymph % (Auto) [place] % (Auto) Eos % (Auto) Baso % (Auto) Lymph # (Auto) [place] # (Auto) Eos # (Auto) Baso # (Auto) Abs Immat Gran (auto) Absolute Neuts (auto) Absolute Nucleated RBC Nucleated RBC % (auto) Smear Tech's Comments PT INR APTT VBG pH VBG pCO2 VBG pO2 VBG HCO3 VBG O2 Saturation VBG Base Excess Sodium Potassium Chloride Carbon Dioxide Anion Gap BUN Creatinine Estim Creat Clear Calc Estimated GFR POC Glucose 142 H 135 H 128 H Random Glucose Lactic Acid Calcium Phosphorus Magnesium B-Natriuretic Peptide 12/08/20 12/08/20 12/08/20 16:36 16:36 16:36 WBC RBC Hgb Hct MCV MCH MCHC RDW Plt Count MPV Immature Gran % (Auto) Neut % (Auto) Lymph % (Auto) [place] % (Auto) Eos % (Auto) Baso % (Auto) Lymph # (Auto) [place] # (Auto) Eos # (Auto) Baso # (Auto) Abs Immat Gran (auto) Absolute Neuts (auto) Absolute Nucleated RBC Nucleated RBC % (auto) Smear Tech's Comments PT INR APTT VBG pH 7.26 L VBG pCO2 72 VBG pO2 58 VBG HCO3 33 H VBG O2 Saturation 82.0 VBG Base Excess 3.3 Sodium 125 L Potassium 5.4 H Chloride 90 L Carbon Dioxide 28 Anion Gap 12 BUN 27 H Creatinine 0.76 Estim Creat Clear Calc 67.7 Estimated GFR > 60 POC Glucose Random Glucose 135 H Lactic Acid 1.1 Calcium 8.2 L D Phosphorus Magnesium B-Natriuretic Peptide 12/08/20 12/08/20 12/08/20 17:43 19:52 20:28 WBC RBC Hgb Hct MCV MCH MCHC RDW Plt Count MPV Immature Gran % (Auto) Neut % (Auto) Lymph % (Auto) [place] % (Auto) Eos % (Auto) Baso % (Auto) Lymph # (Auto) [place] # (Auto) Eos # (Auto) Baso # (Auto) Abs Immat Gran (auto) Absolute Neuts (auto) Absolute Nucleated RBC Nucleated RBC % (auto) Smear Tech's Comments PT INR APTT VBG pH VBG pCO2 VBG pO2 VBG HCO3 VBG O2 Saturation VBG Base Excess Sodium 126 L Potassium 5.4 H Chloride 91 L Carbon Dioxide 27 Anion Gap 13 BUN 26 H Creatinine 0.76 Estim Creat Clear Calc 67.7 Estimated GFR > 60 POC Glucose 136 H 116 H Random Glucose 131 H Lactic Acid Calcium 7.9 L Phosphorus Magnesium B-Natriuretic Peptide 12/08/20 12/08/20 12/08/20 20:28 20:35 22:13 WBC RBC Hgb Hct MCV MCH MCHC RDW Plt Count MPV Immature Gran % (Auto) Neut % (Auto) Lymph % (Auto) [place] % (Auto) Eos % (Auto) Baso % (Auto) Lymph # (Auto) [place] # (Auto) Eos # (Auto) Baso # (Auto) Abs Immat Gran (auto) Absolute Neuts (auto) Absolute Nucleated RBC Nucleated RBC % (auto) Smear Tech's Comments PT INR APTT VBG pH 7.29 L VBG pCO2 67 VBG pO2 63 VBG HCO3 32 H VBG O2 Saturation 84.0 VBG Base Excess 3.5 Sodium Potassium Chloride Carbon Dioxide Anion Gap BUN Creatinine Estim Creat Clear Calc Estimated GFR POC Glucose 75 Random Glucose Lactic Acid Calcium Phosphorus Magnesium B-Natriuretic Peptide 2160 H 12/09/20 12/09/20 12/09/20 00:26 02:28 03:56 WBC RBC Hgb Hct MCV MCH MCHC RDW Plt Count MPV Immature Gran % (Auto) Neut % (Auto) Lymph % (Auto) [place] % (Auto) Eos % (Auto) Baso % (Auto) Lymph # (Auto) [place] # (Auto) Eos # (Auto) Baso # (Auto) Abs Immat Gran (auto) Absolute Neuts (auto) Absolute Nucleated RBC Nucleated RBC % (auto) Smear Tech's Comments PT INR APTT VBG pH VBG pCO2 VBG pO2 VBG HCO3 VBG O2 Saturation VBG Base Excess Sodium Potassium Chloride Carbon Dioxide Anion Gap BUN Creatinine Estim Creat Clear Calc Estimated GFR POC Glucose 172 H 161 H 120 H Random Glucose Lactic Acid Calcium Phosphorus Magnesium B-Natriuretic Peptide 12/09/20 12/09/20 12/09/20 05:19 05:19 05:19 WBC 11.8 H RBC 4.48 Hgb 14.3 Hct 43.1 MCV 96.2 MCH 31.9 MCHC 33.2 RDW 14.1 Plt Count 245 MPV 9.1 L Immature Gran % (Auto) 0.4 Neut % (Auto) 87.7 H Lymph % (Auto) 3.9 L [place] % (Auto) 7.9 Eos % (Auto) 0.0 Baso % (Auto) 0.1 Lymph # (Auto) 0.5 L [place] # (Auto) 0.9 Eos # (Auto) 0.0 Baso # (Auto) 0.0 Abs Immat Gran (auto) 0.05 H Absolute Neuts (auto) 10.4 H Absolute Nucleated RBC 0.000 Nucleated RBC % (auto) 0.0 Smear Tech's Comments VERIFIED PT 17.5 H INR 1.5 H APTT 33.9 D VBG pH VBG pCO2 VBG pO2 VBG HCO3 VBG O2 Saturation VBG Base Excess Sodium 127 L Potassium 5.0 Chloride 91 L Carbon Dioxide 30 H Anion Gap 11 L BUN 27 H Creatinine 0.75 Estim Creat Clear Calc 68.5 Estimated GFR > 60 POC Glucose Random Glucose 152 H Lactic Acid Calcium 7.9 L Phosphorus 3.6 Magnesium 1.7 B-Natriuretic Peptide 12/09/20 12/09/20 12/09/20 05:19 05:33 08:20 WBC RBC Hgb Hct MCV MCH MCHC RDW Plt Count MPV Immature Gran % (Auto) Neut % (Auto) Lymph % (Auto) [place] % (Auto) Eos % (Auto) Baso % (Auto) Lymph # (Auto) [place] # (Auto) Eos # (Auto) Baso # (Auto) Abs Immat Gran (auto) Absolute Neuts (auto) Absolute Nucleated RBC Nucleated RBC % (auto) Smear Tech's Comments PT INR APTT VBG pH 7.30 L VBG pCO2 70 VBG pO2 69 VBG HCO3 35 H VBG O2 Saturation 90.0 VBG Base Excess 5.6 Sodium Potassium Chloride Carbon Dioxide Anion Gap BUN Creatinine Estim Creat Clear Calc Estimated GFR POC Glucose 127 H Random Glucose Lactic Acid Calcium Phosphorus Magnesium B-Natriuretic Peptide 2508 H Microbiology Microbiology Results: Microbiology 12/07/20 16:23 Urine [place] Urine Culture - Final No growth. 12/07/20 16:51 Blood - Venous Blood Culture - Preliminary No growth after 24 hours. 12/07/20 12:53 Blood - Venous Blood Culture - Preliminary No growth after 24 hours. Progress Note: A&P Assessment and plan (1) Acute metabolic encephalopathy: Status: Acute (2) Acute on chronic respiratory failure with hypoxia and hypercapnia: Status: Acute (3) Hypoglycemia: Status: Acute (4) Weakness: Status: Acute (5) Leukocytosis: Status: Acute (6) Hyponatremia: Status: Acute (7) Hyperkalemia: Status: Acute (8) Elevated LFTs: Status: Acute (9) SOB (shortness of breath) on exertion: Status: Acute (10) CAD (coronary artery disease): Status: Acute (11) HTN (hypertension): Status: Acute (12) COPD (chronic obstructive pulmonary disease): Status: Acute (13) Polyarthralgia: Status: Acute (14) Lupus (systemic lupus erythematosus): Status: Acute (15) Pulmonary fibrosis: Status: Acute Assessment and Plan: Today October introduce diet and intermittent breaks from BiPAP and but continue u sing BiPAP p.r.n. and over the course of the evening and we might be in position to start to wean the dopamine
[2020-12-09 10:27] LABS: Glucose, Whole Blood 131 mg/dL (60-115)
[2020-12-09 10:39] LABS: VBG Base Excess 4.9 mmol/L; VBG HCO3 31 mmol/L (22-26); VBG pCO2 51 mmHg; VBG pH 7.39 (7.32-7.43); VBG pO2 48 mmHg
--- NOTE | 2020-12-09 10:42 | PC.NURSE ---
pt was taken off biPAP by respiratory therapy and placed on high flow. She has had oxygen saturations 98-100%. VBGs obtained. Pt tolerated small amount of PO intake and has been speaking to staff. She had one episode of coughing when using straw with fluids, straw removed and pt had no further issues. She answers questions appropriately but has some repetitive questions. Titrating medications as ordered. VS stable.
[2020-12-09 11:38] LABS: Venous Blood Gas Refer to POC result
[2020-12-09 11:56] LABS: Glucose, Whole Blood 130 mg/dL (60-115)
--- NOTE | 2020-12-09 13:42 | PC.NURSE ---
dopamine was paused and pt has had MAP wnl. HR sinus mid 80's. Pt also off BiPAP and tolerating well, she has been able to consume PO fluid and jello. Daughter at bedside. Will continue to monitor
[2020-12-09 14:32] LABS: Glucose, Whole Blood 97 mg/dL (60-115)
[2020-12-09 16:09] LABS: Glucose, Whole Blood 111 mg/dL (60-115)
[2020-12-09 18:14] LABS: Glucose, Whole Blood 63 mg/dL (60-115)
[2020-12-09 20:14] LABS: Glucose, Whole Blood 40 mg/dL (60-115)
[2020-12-09 20:52] LABS: Glucose, Whole Blood 60 mg/dL (60-115)
[2020-12-09 21:41] LABS: Glucose, Whole Blood 69 mg/dL (60-115)
[2020-12-09 22:20] LABS: Glucose, Whole Blood 162 mg/dL (60-115)
[2020-12-10] VITALS (32 sets, daily range): BP systolic 97–147; BP diastolic 44–74; PULSE 59–98; RESP 12–30; TEMP 35.9–36.3; O2SAT 95–100; BMI 33.5
[2020-12-10 00:33] LABS: Glucose, Whole Blood 93 mg/dL (60-115)
[2020-12-10 03:29] LABS: Glucose, Whole Blood 134 mg/dL (60-115)
[2020-12-10 04:07] LABS: Glucose, Whole Blood 133 mg/dL (60-115)
[2020-12-10 05:17] LABS: VBG Base Excess 10.5 mmol/L; VBG HCO3 38 mmol/L (22-26); VBG pCO2 66 mmHg; VBG pH 7.37 (7.32-7.43); VBG pO2 62 mmHg
[2020-12-10 05:19] LABS: Venous Blood Gas Refer to POC result
[2020-12-10] MEDS: Albuterol/Iprat 2.5/0.5MG 3 ML AMPUL.NEB INHALE ×5 (05:39→22:06)
[2020-12-10 05:55] LABS: Glucose, Whole Blood 118 mg/dL (60-115)
[2020-12-10 06:09] LABS: Basophils Percent Auto 0.1 % (0-2); Hematocrit 38.8 % (37-47); Hemoglobin 12.9 g/dl (12.0-16.0); Imm Gran Abs Auto 0.05 X10*3/uL (0.00-0.03); Imm Gran Pct Auto 0.4 % (0.0-0.4); Lymphocytes Absolute Auto 0.4 X10*3/uL (1.2-4.9); MANUAL DIFF FLAG SCAN; Mean Corpuscular HGB Conc 33.2 g/dl (31.0-35.0); Mean Corpuscular Hemoglobin 32.3 pg (27.0-33.0); Mean Corpuscular Volume 97.2 fL (80-98); Mean Platelet Volume 8.9 fL (9.4-12.3); Neutrophils Absolute Auto 10.1 X10*3/uL (2.0-8.3); Neutrophils Percent Auto 87.5 % (45-73); Platelet Count 198 X10*3/uL (160-400); Red Blood Count 3.99 X10*6/uL (4.20-5.50); Red Cell Distribution Width 14.4 % (11.0-16.0); SCAN SMEAR FLAG 1; White Blood Count 11.6 X10*3/uL (4.8-10.8)
[2020-12-10 06:14] LABS: SLIDE REVIEW VERIFIED
[2020-12-10 06:15] LABS: Anion Gap 10 (12-20); Blood Urea Nitrogen 25 mg/dL (9-16); Calcium 7.8 mg/dL (8.4-10.2); Carbon Dioxide 32 mmol/L (22-29); Chloride 93 mmol/L (96-108); Creatinine Clr Calc Pharmacy 76.9; Estimated Glomerular Filt Rate > 60; Glucose Random 168 mg/dL (60-115); Magnesium 1.7 mg/dL (1.6-2.6); Phosphorus 2.5 mg/dL (2.7-4.5); Potassium 4.6 mmol/L (3.3-5.1); Sodium 130 mmol/L (135-145)
[2020-12-10 06:20] LABS: B Type Natriuretic Peptide 1530 pg/mL (<100)
[2020-12-10 06:32] LABS: INTERNATIONAL NORM RATIO 1.3 (0.9-1.1); Prothrombin Time 15.8 SEC (10.8-13.0)
[2020-12-10 06:34] LABS: Partial Thromboplastin Time 32.4 SEC (24.1-38.0)
[2020-12-10 07:55] LABS: Glucose, Whole Blood 119 mg/dL (60-115)
[2020-12-10] MEDS: Doxycycline Hyclate 100 MG in 0.9 % Sodium Chloride 250 ML 166.67 MG IV ×2 (08:16→19:21)
[2020-12-10] MEDS: methylPREDNISolone Sod Succ 1,000 MG in 0.9 % Sodium Chloride 50 ML 66 MG IV (08:51)
[2020-12-10 10:15] LABS: Glucose, Whole Blood 89 mg/dL (60-115)
[2020-12-10 10:59] LABS: VBG HCO3 37 mmol/L (22-26); VBG pCO2 67 mmHg; VBG pH 7.35 (7.32-7.43); VBG pO2 62 mmHg
[2020-12-10 11:13] LABS: Venous Blood Gas Refer to POC result
[2020-12-10 12:04] LABS: Glucose, Whole Blood 83 mg/dL (60-115)
[2020-12-10 16:11] LABS: Glucose, Whole Blood 124 mg/dL (60-115)
--- NOTE | 2020-12-10 16:14 | P.PNCC_ITS ---
Subjective Subjective Date of Service: 12/10/20 Critical Care Time (minutes): 40 Comment: 80-year-old female with prior history of lupus with longstanding lupus lung and previously on Plaquenil but recently on nothing presented with altered mental status and progressive weakness and shortness of breath with extensive bilateral it interstitial fibrosis but also evidence of a diffuse ground-glass infiltration and and she does have concentric hypertrophy with significant left heart diastolic dysfunction so the findings could have been pulmonary edema she was never febrile but weak we covered her for possible infection especially since she has underlying lupus and of course this could also be an acute manifestation of and the her autoimmune disease so she was given pulsed steroids and in addition she had severe acute on chronic cor pulmonale with a very dila delfina and failed right heart and she was densely actress cyanotic clearly a manifestation of low-flow with significant pre renal azotemia as well so she was treated for her acute hypercarbic and high hypoxic respiratory failure with BiPAP and because she was on metoprolol for non operable ischemic heart disease with a heart rate of 50 clearly her cardiac output was going to be rate dependent so we started her on dopamine to offset the metoprolol broader heart rate up to 70 and then as her heart rate improved off the metoprolol we weaned and discontinued the dopamine with the current heart rate of 80 in still in sinus with underlying bifascicular block no longer Actos INR ECMO urine output is improved as is renal function Physical Exam Vital Signs: Vital Signs: Last Vital Signs Temp 97.0 F 12/10/20 14:46 Pulse 87 12/10/20 15:20 Resp 15 12/10/20 15:20 BP 123/54 L 12/10/20 14:46 Pulse Ox 100 12/10/20 14:46 Body Mass Index 33.5 Const: Other: She is more awake with better cognitive function she is eating clear liquids and no longer requires dopamine and she is only using nocturnal BiPAP for resting purposes tolerates being on nasal high-flow during the day Abdomen is benign no organomegaly Lungs without adventitious sounds Cardiac exam her CVP which was initially 24 came down to 12 so clearly we have relieved her predominant right heart failure issue Objective Data Labs CBC & Chem 7: 12/10/20 05:11 12/10/20 05:11 Labs: Laboratory Results - last 24 hr 05/29/21 05/29/21 05/29/21 18:05 20:09 20:48 WBC RBC Hgb Hct MCV MCH MCHC RDW Plt Count MPV Immature Gran % (Auto) Neut % (Auto) Lymph % (Auto) [place] % (Auto) Eos % (Auto) Baso % (Auto) Lymph # (Auto) [place] # (Auto) Eos # (Auto) Baso # (Auto) Abs Immat Gran (auto) Absolute Neuts (auto) Absolute Nucleated RBC Nucleated RBC % (auto) Smear Tech's Comments PT INR APTT VBG pH VBG pCO2 VBG pO2 VBG HCO3 VBG O2 Saturation VBG Base Excess Sodium Potassium Chloride Carbon Dioxide Anion Gap BUN Creatinine Estim Creat Clear Calc Estimated GFR POC Glucose 63 40 L* 60 Random Glucose Calcium Phosphorus Magnesium B-Natriuretic Peptide 12/09/20 12/09/20 12/10/20 21:34 22:17 00:30 WBC RBC Hgb Hct MCV MCH MCHC RDW Plt Count MPV Immature Gran % (Auto) Neut % (Auto) Lymph % (Auto) [place] % (Auto) Eos % (Auto) Baso % (Auto) Lymph # (Auto) [place] # (Auto) Eos # (Auto) Baso # (Auto) Abs Immat Gran (auto) Absolute Neuts (auto) Absolute Nucleated RBC Nucleated RBC % (auto) Smear Tech's Comments PT INR APTT VBG pH VBG pCO2 VBG pO2 VBG HCO3 VBG O2 Saturation VBG Base Excess Sodium Potassium Chloride Carbon Dioxide Anion Gap BUN Creatinine Estim Creat Clear Calc Estimated GFR POC Glucose 69 162 H 93 Random Glucose Calcium Phosphorus Magnesium B-Natriuretic Peptide 12/10/20 12/10/20 12/10/20 02:06 03:56 05:11 WBC 11.6 H RBC 3.99 L Hgb 12.9 Hct 38.8 MCV 97.2 MCH 32.3 MCHC 33.2 RDW 14.4 Plt Count 198 MPV 8.9 L Immature Gran % (Auto) 0.4 Neut % (Auto) 87.5 H Lymph % (Auto) 3.0 L [place] % (Auto) 9.0 Eos % (Auto) 0.0 Baso % (Auto) 0.1 Lymph # (Auto) 0.4 L [place] # (Auto) 1.0 Eos # (Auto) 0.0 Baso # (Auto) 0.0 Abs Immat Gran (auto) 0.05 H Absolute Neuts (auto) 10.1 H Absolute Nucleated RBC 0.000 Nucleated RBC % (auto) 0.0 Smear Tech's Comments VERIFIED PT INR APTT VBG pH VBG pCO2 VBG pO2 VBG HCO3 VBG O2 Saturation VBG Base Excess Sodium Potassium Chloride Carbon Dioxide Anion Gap BUN Creatinine Estim Creat Clear Calc Estimated GFR POC Glucose 134 H 133 H Random Glucose Calcium Phosphorus Magnesium B-Natriuretic Peptide 12/10/20 12/10/20 12/10/20 05:11 05:11 05:11 WBC RBC Hgb Hct MCV MCH MCHC RDW Plt Count MPV Immature Gran % (Auto) Neut % (Auto) Lymph % (Auto) [place] % (Auto) Eos % (Auto) Baso % (Auto) Lymph # (Auto) [place] # (Auto) Eos # (Auto) Baso # (Auto) Abs Immat Gran (auto) Absolute Neuts (auto) Absolute Nucleated RBC Nucleated RBC % (auto) Smear Tech's Comments PT 15.8 H INR 1.3 H APTT 32.4 VBG pH VBG pCO2 VBG pO2 VBG HCO3 VBG O2 Saturation VBG Base Excess Sodium 130 L Potassium 4.6 Chloride 93 L Carbon Dioxide 32 H Anion Gap 10 L BUN 25 H Creatinine 0.69 Estim Creat Clear Calc 76.9 Estimated GFR > 60 POC Glucose Random Glucose 168 H Calcium 7.8 L Phosphorus 2.5 L Magnesium 1.7 B-Natriuretic Peptide 1530 H 12/10/20 12/10/20 12/10/20 05:11 05:42 07:45 WBC RBC Hgb Hct MCV MCH MCHC RDW Plt Count MPV Immature Gran % (Auto) Neut % (Auto) Lymph % (Auto) [place] % (Auto) Eos % (Auto) Baso % (Auto) Lymph # (Auto) [place] # (Auto) Eos # (Auto) Baso # (Auto) Abs Immat Gran (auto) Absolute Neuts (auto) Absolute Nucleated RBC Nucleated RBC % (auto) Smear Tech's Comments PT INR APTT VBG pH 7.37 VBG pCO2 66 VBG pO2 62 VBG HCO3 38 H VBG O2 Saturation 88.0 VBG Base Excess 10.5 Sodium Potassium Chloride Carbon Dioxide Anion Gap BUN Creatinine Estim Creat Clear Calc Estimated GFR POC Glucose 118 H 119 H Random Glucose Calcium Phosphorus Magnesium B-Natriuretic Peptide 12/10/20 12/10/20 12/10/20 10:12 10:52 11:51 WBC RBC Hgb Hct MCV MCH MCHC RDW Plt Count MPV Immature Gran % (Auto) Neut % (Auto) Lymph % (Auto) [place] % (Auto) Eos % (Auto) Baso % (Auto) Lymph # (Auto) [place] # (Auto) Eos # (Auto) Baso # (Auto) Abs Immat Gran (auto) Absolute Neuts (auto) Absolute Nucleated RBC Nucleated RBC % (auto) Smear Tech's Comments PT INR APTT VBG pH 7.35 VBG pCO2 67 VBG pO2 62 VBG HCO3 37 H VBG O2 Saturation 87.0 VBG Base Excess 9.0 Sodium Potassium Chloride Carbon Dioxide Anion Gap BUN Creatinine Estim Creat Clear Calc Estimated GFR POC Glucose 89 83 Random Glucose Calcium Phosphorus Magnesium B-Natriuretic Peptide 12/10/20 14:13 WBC RBC Hgb Hct MCV MCH MCHC RDW Plt Count MPV Immature Gran % (Auto) Neut % (Auto) Lymph % (Auto) [place] % (Auto) Eos % (Auto) Baso % (Auto) Lymph # (Auto) [place] # (Auto) Eos # (Auto) Baso # (Auto) Abs Immat Gran (auto) Absolute Neuts (auto) Absolute Nucleated RBC Nucleated RBC % (auto) Smear Tech's Comments PT INR APTT VBG pH VBG pCO2 VBG pO2 VBG HCO3 VBG O2 Saturation VBG Base Excess Sodium Potassium Chloride Carbon Dioxide Anion Gap BUN Creatinine Estim Creat Clear Calc Estimated GFR POC Glucose 124 H Random Glucose Calcium Phosphorus Magnesium B-Natriuretic Peptide Microbiology Microbiology Results: Microbiology 12/07/20 16:51 Blood - Venous Blood Culture - Preliminary No growth after 48 hours. 12/07/20 12:53 Blood - Venous Blood Culture - Preliminary No growth after 48 hours. 12/07/20 16:23 Urine [place] Urine Culture - Final No growth. Progress Note: A&P Assessment and plan (1) Acute metabolic encephalopathy: Status: Acute (2) Acute on chronic respiratory failure with hypoxia and hypercapnia: Status: Acute (3) Hypoxia: Status: Acute (4) Hypoglycemia: Status: Acute (5) Weakness: Status: Acute (6) Leukocytosis: Status: Acute (7) Hyponatremia: Status: Acute (8) Hypochloremia: Status: Acute (9) Hyperkalemia: Status: Acute (10) Elevated LFTs: Status: Acute (11) Osteoporosis: Status: Acute (12) SOB (shortness of breath) on exertion: Status: Acute (13) CAD (coronary artery disease): Status: Acute (14) HTN (hypertension): Status: Acute (15) COPD (chronic obstructive pulmonary disease): Status: Acute (16) Bursitis of shoulder, right: Status: Acute (17) Polyarthralgia: Status: Acute (18) Lupus (systemic lupus erythematosus): Status: Acute (19) Pulmonary fibrosis: Status: Acute Assessment and Plan: So the plan at this point because we have to consistent days where she spent all day off the BiPAP and dopamine would likely be to transfer to the 4th floor and possibly have pulmonary qualify her for BiPAP in on a p.r.n. an may be nocturnal basis but I would recommend keeping her off beta blockade or certainly minimizing it if her ischemic heart disease demands
[2020-12-10 16:36] LABS: Glucose, Whole Blood 89 mg/dL (60-115)
[2020-12-10 18:10] LABS: Glucose, Whole Blood 31 mg/dL (60-115)
[2020-12-10 18:43] LABS: Glucose, Whole Blood 49 mg/dL (60-115)
[2020-12-10 19:11] LABS: Glucose, Whole Blood 74 mg/dL (60-115)
[2020-12-10 19:58] LABS: Glucose, Whole Blood 135 mg/dL (60-115)
[2020-12-10 22:17] LABS: Glucose, Whole Blood 127 mg/dL (60-115)
[2020-12-11] VITALS (25 sets, daily range): BP systolic 119–160; BP diastolic 53–98; PULSE 75–102; RESP 16–32; TEMP 35.9–36.7; O2SAT 93–100; BMI 31.4
[2020-12-11 00:23] LABS: Glucose, Whole Blood 88 mg/dL (60-115)
[2020-12-11 02:11] LABS: Glucose, Whole Blood 77 mg/dL (60-115)
--- NOTE | 2020-12-11 03:33 | PC.NURSE ---
Addendum entered by Mohsen Melgoza RN 12/11/20 03:40: icu pa aware of poc glucose trending...no d10% infusion d/t past hyponatremia when administered..to utilize prn d50% per mar as ordered for glucose<60 Original Note: CARE ASSUMED 23:15...AWAKE...VAGUE RESPONSES AT TIMES...FLAT AFFECT...CONVERSES...NOCTURNAL BIPAP 18/ RATE 18 FIO2 30%...RR 24-32...Ve 11-13 l/m..SaO2 96-98%...NSR RBBB ISOLATED PVC...REMAINS OFF DOPAMINE...V22...CVP 9-12...Q2H POC GLUCOSE MONITORING...
[2020-12-11 04:17] LABS: Glucose, Whole Blood 110 mg/dL (60-115)
[2020-12-11 05:20] LABS: VBG Base Excess 11.5 mmol/L; VBG HCO3 39 mmol/L (22-26); VBG pCO2 67 mmHg; VBG pH 7.38 (7.32-7.43); VBG pO2 62 mmHg
[2020-12-11 05:26] LABS: Basophils Percent Auto 0.1 % (0-2); Hematocrit 41.3 % (37-47); Hemoglobin 13.6 g/dl (12.0-16.0); Imm Gran Abs Auto 0.08 X10*3/uL (0.00-0.03); Imm Gran Pct Auto 0.6 % (0.0-0.4); Lymphocytes Absolute Auto 0.4 X10*3/uL (1.2-4.9); MANUAL DIFF FLAG SCAN; Mean Corpuscular HGB Conc 32.9 g/dl (31.0-35.0); Mean Corpuscular Hemoglobin 32.3 pg (27.0-33.0); Mean Corpuscular Volume 98.1 fL (80-98); Mean Platelet Volume 8.6 fL (9.4-12.3); Monocytes Percent Auto 7.3 % (2-11); Neutrophils Absolute Auto 11.7 X10*3/uL (2.0-8.3); Platelet Count 182 X10*3/uL (160-400); Red Blood Count 4.21 X10*6/uL (4.20-5.50); Red Cell Distribution Width 14.6 % (11.0-16.0); SCAN SMEAR FLAG 1; White Blood Count 13.2 X10*3/uL (4.8-10.8)
[2020-12-11 05:29] LABS: Venous Blood Gas Refer to POC result
[2020-12-11 05:32] LABS: INTERNATIONAL NORM RATIO 1.3 (0.9-1.1); Prothrombin Time 15.4 SEC (10.8-13.0); SLIDE REVIEW VERIFIED
[2020-12-11 05:34] LABS: Partial Thromboplastin Time 30.9 SEC (24.1-38.0)
[2020-12-11] MEDS: Albuterol/Iprat 2.5/0.5MG 3 ML AMPUL.NEB INHALE ×4 (05:38→20:00)
[2020-12-11 05:49] LABS: Alanine Aminotransferase 285 U/L (0-31); Albumin Level 2.7 g/dL (3.5-5.0); Alkaline Phosphatase 123 U/L (39-117); Anion Gap 9 (12-20); Aspartate Amino Transferase 133 U/L (5-31); Bilirubin Total 0.6 mg/dL (0.0-1.0); Blood Urea Nitrogen 21 mg/dL (9-16); Calcium 8.1 mg/dL (8.4-10.2); Carbon Dioxide 36 mmol/L (22-29); Chloride 93 mmol/L (96-108); Creatinine Clr Calc Pharmacy 86.7; Estimated Glomerular Filt Rate > 60; Glucose Random 140 mg/dL (60-115); Magnesium 1.7 mg/dL (1.6-2.6); Phosphorus 2.2 mg/dL (2.7-4.5); Potassium 4.7 mmol/L (3.3-5.1); Sodium 133 mmol/L (135-145); Total Protein 5.9 g/dL (6.5-8.0)
[2020-12-11 05:51] LABS: B Type Natriuretic Peptide 1596 pg/mL (<100)
[2020-12-11 06:24] LABS: Glucose, Whole Blood 80 mg/dL (60-115)
[2020-12-11 06:24] LABS: Glucose, Whole Blood 47 mg/dL (60-115)
[2020-12-11 06:27] LABS: Glucose, Whole Blood 135 mg/dL (60-115)
--- NOTE | 2020-12-11 06:30 | PC.NURSE ---
4AM POC [id number]....AM GLUCOSE VIA TLC 05:32=343...06:17-06:20: POC GLUCOSE RIGHT HAND=47 POC GLUCOSE LEFT HAND=80...POC GLUCOSE RIGHT FOREARM= 135 (DRAWN PER PA)...PATIENT C/O HEADACHE THIS AM ..PA PRESENT..TO ORDER TORADOL FOR HEADACHE
[2020-12-11] MEDS: Doxycycline Hyclate 100 MG in 0.9 % Sodium Chloride 250 ML 166.67 MG IV ×2 (07:20→20:22)
[2020-12-11] MEDS: Ketorolac Tromethamine 15 MG/ML VIAL IVPUSH (07:20)
[2020-12-11 08:59] LABS: Glucose, Whole Blood 145 mg/dL (60-115)
[2020-12-11] MEDS: Sodium,Potassium Phosphates POWD.PACK 2 PACKET PO (09:47)
[2020-12-11] MEDS: Furosemide 20 MG/2 ML VIAL IVPUSH ×2 (09:49→20:21)
[2020-12-11] MEDS: methylPREDNISolone Sod Succ 1,000 MG in 0.9 % Sodium Chloride 50 ML 66 MG IV (09:51)
[2020-12-11] MEDS: Magnesium Sulfate/H2O 2 GM/50 ML PIGGYBACK IV (09:56)
[2020-12-11] MEDS: Albumin Human 25 % 100 ML IV ×3 (10:00→20:19)
[2020-12-11 10:33] LABS: Glucose, Whole Blood 168 mg/dL (60-115)
[2020-12-11 12:06] LABS: Glucose, Whole Blood 146 mg/dL (60-115)
--- NOTE | 2020-12-11 12:17 | PM.CCPN ---
Subjective Subjective Date of Service: 12/11/20 Interval History: 80-year-old lady with underlying history of CAD, aortic stenosis, right heart failure, COPD, hypertension, lupus admitted on 12/07/2020 with dyspnea and bradycardia/hypotension requiring dopamine support. She was treated with systemic corticosteroids for possible exacerbation of lupus associated ILD, also IV diuresis, and doxycycline with significant improvement in her FiO2 requirements. No events overnight. Critical Care Time (minutes): 60 Physical Exam Vital Signs: Vital Signs: Last Vital Signs Temp 93.8 F L 12/11/20 11:55 Pulse 80 12/11/20 11:55 Resp 16 12/11/20 11:55 BP 153/92 H 12/11/20 11:55 Pulse Ox 100 12/11/20 11:55 Body Mass Index 31.4 Const: General: no acute distress, alert and awake Eyes: Sclerae: sclerae normal EOM: EOMs intact bilaterally Neck: Neck: Yes no lymphadenopathy, Yes trachea midline and Yes supple Resp: Effort & Inspection: normal respiratory effort and no respiratory distress Auscultation: clear to auscultation bilaterally Cardio: Rate: regular rate Rhythm: regular rhythm Heart sounds: no gallops, no murmurs and no rubs GI: Palpation (GI): Soft to palpation and Other GI palpation findings present ( Nontender) Auscultation: normal bowel sounds Extrem: General: No clubbing, No cyanosis and Yes pedal edema (1+ bilateral) Objective Data Labs CBC & Chem 7: 12/11/20 05:11 12/11/20 05:11 Labs: Laboratory Results - last 24 hr 12/10/20 12/10/20 12/10/20 14:13 16:19 18:02 WBC RBC Hgb Hct MCV MCH MCHC RDW Plt Count MPV Immature Gran % (Auto) Neut % (Auto) Lymph % (Auto) [place] % (Auto) Eos % (Auto) Baso % (Auto) Lymph # (Auto) [place] # (Auto) Eos # (Auto) Baso # (Auto) Abs Immat Gran (auto) Absolute Neuts (auto) Absolute Nucleated RBC Nucleated RBC % (auto) Smear Tech's Comments PT INR APTT VBG pH VBG pCO2 VBG pO2 VBG HCO3 VBG O2 Saturation VBG Base Excess Sodium Potassium Chloride Carbon Dioxide Anion Gap BUN Creatinine Estim Creat Clear Calc Estimated GFR POC Glucose 124 H 89 31 L* Random Glucose Calcium Phosphorus Magnesium Total Bilirubin AST ALT Alkaline Phosphatase B-Natriuretic Peptide Total Protein Albumin 12/10/20 12/10/20 12/10/20 18:37 19:07 19:54 WBC RBC Hgb Hct MCV MCH MCHC RDW Plt Count MPV Immature Gran % (Auto) Neut % (Auto) Lymph % (Auto) [place] % (Auto) Eos % (Auto) Baso % (Auto) Lymph # (Auto) [place] # (Auto) Eos # (Auto) Baso # (Auto) Abs Immat Gran (auto) Absolute Neuts (auto) Absolute Nucleated RBC Nucleated RBC % (auto) Smear Tech's Comments PT INR APTT VBG pH VBG pCO2 VBG pO2 VBG HCO3 VBG O2 Saturation VBG Base Excess Sodium Potassium Chloride Carbon Dioxide Anion Gap BUN Creatinine Estim Creat Clear Calc Estimated GFR POC Glucose 49 L* 74 135 H Random Glucose Calcium Phosphorus Magnesium Total Bilirubin AST ALT Alkaline Phosphatase B-Natriuretic Peptide Total Protein Albumin 12/10/20 12/10/20 12/11/20 22:05 23:57 01:59 WBC RBC Hgb Hct MCV MCH MCHC RDW Plt Count MPV Immature Gran % (Auto) Neut % (Auto) Lymph % (Auto) [place] % (Auto) Eos % (Auto) Baso % (Auto) Lymph # (Auto) [place] # (Auto) Eos # (Auto) Baso # (Auto) Abs Immat Gran (auto) Absolute Neuts (auto) Absolute Nucleated RBC Nucleated RBC % (auto) Smear Tech's Comments PT INR APTT VBG pH VBG pCO2 VBG pO2 VBG HCO3 VBG O2 Saturation VBG Base Excess Sodium Potassium Chloride Carbon Dioxide Anion Gap BUN Creatinine Estim Creat Clear Calc Estimated GFR POC Glucose 127 H 88 77 Random Glucose Calcium Phosphorus Magnesium Total Bilirubin AST ALT Alkaline Phosphatase B-Natriuretic Peptide Total Protein Albumin 12/11/20 12/11/20 12/11/20 04:12 05:11 05:11 WBC 13.2 H RBC 4.21 Hgb 13.6 Hct 41.3 MCV 98.1 H MCH 32.3 MCHC 32.9 RDW 14.6 Plt Count 182 MPV 8.6 L Immature Gran % (Auto) 0.6 H Neut % (Auto) 89.0 H Lymph % (Auto) 3.0 L [place] % (Auto) 7.3 Eos % (Auto) 0.0 Baso % (Auto) 0.1 Lymph # (Auto) 0.4 L [place] # (Auto) 1.0 Eos # (Auto) 0.0 Baso # (Auto) 0.0 Abs Immat Gran (auto) 0.08 H Absolute Neuts (auto) 11.7 H Absolute Nucleated RBC 0.000 Nucleated RBC % (auto) 0.0 Smear Tech's Comments VERIFIED PT 15.4 H INR 1.3 H APTT 30.9 VBG pH VBG pCO2 VBG pO2 VBG HCO3 VBG O2 Saturation VBG Base Excess Sodium Potassium Chloride Carbon Dioxide Anion Gap BUN Creatinine Estim Creat Clear Calc Estimated GFR POC Glucose 110 Random Glucose Calcium Phosphorus Magnesium Total Bilirubin AST ALT Alkaline Phosphatase B-Natriuretic Peptide Total Protein Albumin 12/11/20 12/11/20 12/11/20 05:11 05:11 05:14 WBC RBC Hgb Hct MCV MCH MCHC RDW Plt Count MPV Immature Gran % (Auto) Neut % (Auto) Lymph % (Auto) [place] % (Auto) Eos % (Auto) Baso % (Auto) Lymph # (Auto) [place] # (Auto) Eos # (Auto) Baso # (Auto) Abs Immat Gran (auto) Absolute Neuts (auto) Absolute Nucleated RBC Nucleated RBC % (auto) Smear Tech's Comments PT INR APTT VBG pH 7.38 VBG pCO2 67 VBG pO2 62 VBG HCO3 39 H VBG O2 Saturation 90.0 VBG Base Excess 11.5 Sodium 133 L Potassium 4.7 Chloride 93 L Carbon Dioxide 36 H Anion Gap 9 L BUN 21 H Creatinine 0.64 Estim Creat Clear Calc 86.7 Estimated GFR > 60 POC Glucose Random Glucose 140 H Calcium 8.1 L Phosphorus 2.2 L Magnesium 1.7 Total Bilirubin 0.6 AST 133 H ALT 285 H Alkaline Phosphatase 123 H B-Natriuretic Peptide 1596 H Total Protein 5.9 L Albumin 2.7 L 12/11/20 12/11/20 12/11/20 06:17 06:19 06:23 WBC RBC Hgb Hct MCV MCH MCHC RDW Plt Count MPV Immature Gran % (Auto) Neut % (Auto) Lymph % (Auto) [place] % (Auto) Eos % (Auto) Baso % (Auto) Lymph # (Auto) [place] # (Auto) Eos # (Auto) Baso # (Auto) Abs Immat Gran (auto) Absolute Neuts (auto) Absolute Nucleated RBC Nucleated RBC % (auto) Smear Tech's Comments PT INR APTT VBG pH VBG pCO2 VBG pO2 VBG HCO3 VBG O2 Saturation VBG Base Excess Sodium Potassium Chloride Carbon Dioxide Anion Gap BUN Creatinine Estim Creat Clear Calc Estimated GFR POC Glucose 47 L* 80 135 H Random Glucose Calcium Phosphorus Magnesium Total Bilirubin AST ALT Alkaline Phosphatase B-Natriuretic Peptide Total Protein Albumin 12/11/20 12/11/20 12/11/20 07:41 10:28 11:53 WBC RBC Hgb Hct MCV MCH MCHC RDW Plt Count MPV Immature Gran % (Auto) Neut % (Auto) Lymph % (Auto) [place] % (Auto) Eos % (Auto) Baso % (Auto) Lymph # (Auto) [place] # (Auto) Eos # (Auto) Baso # (Auto) Abs Immat Gran (auto) Absolute Neuts (auto) Absolute Nucleated RBC Nucleated RBC % (auto) Smear Tech's Comments PT INR APTT VBG pH VBG pCO2 VBG pO2 VBG HCO3 VBG O2 Saturation VBG Base Excess Sodium Potassium Chloride Carbon Dioxide Anion Gap BUN Creatinine Estim Creat Clear Calc Estimated GFR POC Glucose 145 H 168 H 146 H Random Glucose Calcium Phosphorus Magnesium Total Bilirubin AST ALT Alkaline Phosphatase B-Natriuretic Peptide Total Protein Albumin Microbiology Microbiology Results: Microbiology 12/07/20 16:51 Blood - Venous Blood Culture - Preliminary No growth after 48 hours. 12/07/20 12:53 Blood - Venous Blood Culture - Preliminary No growth after 48 hours. 12/07/20 16:23 Urine [place] Urine Culture - Final No growth. Progress Note: A&P Assessment and plan (1) Acute on chronic respiratory failure with hypoxia and hypercapnia: Status: Acute Assessment and Plan: Assessment: 80-year-old lady with underlying coronary artery disease, right heart failure, COPD, lupus, hypertension admitted with dyspnea and bradycardia. Plan: Neuro: No acute issues. Cardiac: Right heart failure, likely secondary to underlying COPD and possible lupus related interstitial lung disease. Improving with diuresis. Titrated off dopamine. Pulmonary: Acute on chronic hypoxic and hypercapnic respiratory failure briefly requiring BiPAP support, now titrated down to nasal cannula supplemental oxygen. Continue to titrate off as tolerated. Underlying COPD and likely lupus related ILD. Patient has been treated with 5 day course of a high dose steroids and now is being tapered off. Renal: No acute issues. Endo: No acute issues. GI: No acute issues. ID: Empirically covered for possible atypical pneumonia with doxycycline. Heme/Onc: No acute issues. Psych: No acute issues. Miscellaneous: No acute issues. Prophylaxis: Heparin Diet: Clear liquids Critical care time spent: 60 minutes (2) CAD (coronary artery disease): Status: Acute (3) COPD (chronic obstructive pulmonary disease): Status: Acute (4) Lupus (systemic lupus erythematosus): Status: Acute (5) Pulmonary fibrosis: Status: Acute (6) Right heart failure: Status: Acute
[2020-12-11] MEDS: Heparin Sodium,Porcine 5,000 UNIT/ML VIAL 5000 UNIT SUBCUT ×2 (13:30→20:21)
--- NOTE | 2020-12-11 14:24 | MHC.CLN ---
F/U PO INTAKE 25/50% OF C/L DIET DAY 4 OF POOR PO RECOMMEND ADDING ENSURE CLEAR TO INCREASE KCALS MONITOR PO INTAKE CLOSELY
[2020-12-11 16:50] LABS: Glucose, Whole Blood 154 mg/dL (60-115)
[2020-12-11] MEDS: methylPREDNISolone Sod Succ 40 MG/ML VIAL IVPUSH (18:18)
[2020-12-11 20:48] LABS: Glucose, Whole Blood 122 mg/dL (60-115)
[2020-12-12] VITALS (16 sets, daily range): BP systolic 119–163; BP diastolic 67–106; PULSE 69–195; RESP 18–22; TEMP 35.9–36.8; O2SAT 90–99; BMI 31.4
[2020-12-12 00:59] LABS: Glucose, Whole Blood 201 mg/dL (60-115)
[2020-12-12] MEDS: methylPREDNISolone Sod Succ 40 MG/ML VIAL IVPUSH ×4 (00:59→18:05)
[2020-12-12] MEDS: Albumin Human 25 % 100 ML IV (03:54)
[2020-12-12] MEDS: Heparin Sodium,Porcine 5,000 UNIT/ML VIAL 5000 UNIT SUBCUT (04:16)
[2020-12-12 06:00] LABS: Venous Blood Gas Refer to POC result
[2020-12-12 06:00] LABS: VBG HCO3 45 mmol/L (22-26); VBG pCO2 73 mmHg; VBG pH 7.39 (7.32-7.43); VBG pO2 58 mmHg
[2020-12-12] MEDS: Albuterol/Iprat 2.5/0.5MG 3 ML AMPUL.NEB INHALE ×3 (06:08→20:20)
[2020-12-12 06:23] LABS: Basophils Percent Auto 0.1 % (0-2); Hematocrit 36.8 % (37-47); Hemoglobin 11.7 g/dl (12.0-16.0); Imm Gran Abs Auto 0.05 X10*3/uL (0.00-0.03); Imm Gran Pct Auto 0.4 % (0.0-0.4); Lymphocytes Absolute Auto 0.3 X10*3/uL (1.2-4.9); Lymphocytes Percent Auto 2.5 % (20-40); MANUAL DIFF FLAG SCAN; Mean Corpuscular HGB Conc 31.8 g/dl (31.0-35.0); Mean Corpuscular Hemoglobin 31.3 pg (27.0-33.0); Mean Corpuscular Volume 98.4 fL (80-98); Monocytes Absolute Auto 0.7 X10*3/uL (0.1-1.2); Monocytes Percent Auto 5.7 % (2-11); Neutrophils Absolute Auto 11.3 X10*3/uL (2.0-8.3); Neutrophils Percent Auto 91.3 % (45-73); Platelet Count 153 X10*3/uL (160-400); Red Blood Count 3.74 X10*6/uL (4.20-5.50); Red Cell Distribution Width 14.6 % (11.0-16.0); SCAN SMEAR FLAG 1; White Blood Count 12.4 X10*3/uL (4.8-10.8)
[2020-12-12 06:32] LABS: Alanine Aminotransferase 159 U/L (0-31); Alkaline Phosphatase 92 U/L (39-117); Anion Gap 10 (12-20); Aspartate Amino Transferase 61 U/L (5-31); Bilirubin Total 0.8 mg/dL (0.0-1.0); Blood Urea Nitrogen 24 mg/dL (9-16); Calcium 8.3 mg/dL (8.4-10.2); Carbon Dioxide 38 mmol/L (22-29); Chloride 92 mmol/L (96-108); Creatinine Clr Calc Pharmacy 77.9; Estimated Glomerular Filt Rate > 60; Glucose Random 140 mg/dL (60-115); Phosphorus 3.1 mg/dL (2.7-4.5); Potassium 4.4 mmol/L (3.3-5.1); Sodium 136 mmol/L (135-145); Total Protein 6.4 g/dL (6.5-8.0)
[2020-12-12 07:26] LABS: SLIDE REVIEW VERIFIED
[2020-12-12] MEDS: Doxycycline Hyclate 100 MG in 0.9 % Sodium Chloride 250 ML 166.67 MG IV ×2 (08:13→20:03)
[2020-12-12] MEDS: Furosemide 20 MG/2 ML VIAL IVPUSH ×2 (08:13→20:24)
--- NOTE | 2020-12-12 08:54 | MHC.CM.PN ---
dc plan at this time is for patient to go to [facility], ref's have been made and pt has acceptances. cm to cont. to follow.
[2020-12-12 08:58] LABS: Glucose, Whole Blood < 10 mg/dL (60-115)
--- NOTE | 2020-12-12 09:47 | ECG_ITS ---
Test Reason : RAPID HEARTRATE Blood Pressure : / mmHG Vent. Rate : 169 BPM Atrial Rate : 214 BPM P-R Int : 000 ms QRS Dur : 132 ms QT Int : 324 ms P-R-T Axes : 000 150 -34 degrees QTc Int : 543 ms Atrial fibrillation with rapid ventricular response Right bundle branch block Inferior infarct (cited on or before 30-DEC-2018) Anterolateral infarct (cited on or before 30-DEC-2018) Abnormal ECG When compared with ECG of 07-DEC-2020 13:53, Atrial fibrillation has replaced Sinus rhythm Vent. rate has increased BY 108 BPM QRS duration has decreased Questionable change in initial forces of Lateral leads Referred By: Colby [facility] Electronically Signed By:Liang Vogt
--- NOTE | 2020-12-12 10:19 | P.PNIM_ITS ---
Subjective Subjective Date of Service: 12/12/20 Interval History: Seen in f/u for resp failure treated in ICU, now in AFIB with RVR new Review of Systems Gen: no fever Resp: no sob, no cough CV: no chest, no WALDROP, no leg edema GI: No n/v, no abd pain Neuro: No confusion Physical Exam Vital Signs: Vital Signs: Last Vital Signs Temp 96.7 F L 12/12/20 06:59 Pulse 89 12/12/20 06:59 Resp 22 H 12/12/20 06:59 BP 135/67 12/12/20 06:59 Pulse Ox 99 12/12/20 06:59 Body Mass Index 31.4 Const: Other: General: AO X 3, no acute distress Resp: CTA bilateral CVS: iregular iregu, 2 to 3 + pitting kusum in feet/legs GI: +BS, NT, no distention Skin: No rash Neuro: motor grossly intact Psych: appropriate affect Objective Data Current Medications Generic Name Dose Route Start Last Admin Trade Name Fuadq PRN Reason Stop Dose Admin Albuterol/Ipratropium 3 ml 12/07/20 21:00 12/12/20 06:08 Albuterol/Iprat 2.5/0.5mg 3 Ml Ampul.Neb INHALE 3 ml 5XD SUNNY Administration Dextrose 25 gm 12/09/20 20:12 12/09/20 21:51 Dextrose 50 % 25 Gm/50 Ml Vial IVPUSH 25 gm ONCE PRN Administration glucose <60 Dextrose 25 gm 12/09/20 20:58 12/10/20 18:44 Dextrose 50 % 25 Gm/50 Ml Vial IVPUSH 25 gm Q20M PRN Administration glucose <60 Furosemide 20 mg 12/11/20 09:00 12/12/20 08:13 Furosemide 20 Mg/2 Ml Vial IVPUSH 20 mg Q12H SUNNY Administration Protocol Heparin Sodium (Porcine) 5,000 unit 12/11/20 13:00 12/12/20 04:16 Heparin Sodium,Porcine 5,000 Unit/Ml Vial SUBCUT 5,000 unit Q8H SUNNY Administration Doxycycline Hyclate 100 mg/ 250 mls @ 166.67 mls/hr 12/08/20 07:45 12/12/20 08:13 Sodium Chloride IV 166.67 mls/hr Q12H SUNNY Administration Methylprednisolone Sodium Succinate 40 mg 12/11/20 18:00 12/12/20 06:00 Methylprednisolone Sod Succ 40 Mg/Ml Vial IVPUSH 40 mg Q6H SUNNY Administration Pharmacy Consult 1 each 12/07/20 12:34 Consult Rx Perform Med Rec MISCELLANE ONCE PRN Consult order Labs CBC & Chem 7: 12/12/20 05:49 12/12/20 05:49 Microbiology Microbiology Results: Microbiology 12/07/20 16:51 Blood - Venous Blood Culture - Preliminary No growth after 48 hours. 12/07/20 12:53 Blood - Venous Blood Culture - Preliminary No growth after 48 hours. 12/07/20 16:23 Urine [place] Urine Culture - Final No growth. Assessment and Plan (1) Acute on chronic respiratory failure with hypoxia and hypercapnia: Status: Acute (2) Lupus (systemic lupus erythematosus): Status: Acute Assessment and Plan: 80-year-old lady with underlying history of CAD, aortic stenosis, right heart failure, COPD, hypertension, lupus admitted on 12/07/2020 with dyspnea and bradycardia/hypotension requiring dopamine support. She was treated with systemic corticosteroids for possible exacerbation of lupus associated ILD, also IV diuresis, and doxycycline with significant improvement in her FiO2 requirements. And now in AFIB with RVR, no prior history 1. New onset of AFIB with RVR--HR 150 to 180 -check TSH -IV cardizem to control -Echocardiogram -cardiology consult -BHANU?DS?-VASc Score for Atrial Fibrillation Stroke Risk = 6 -anticoagulation with Eliquis Right heart failure, likely secondary to underlying COPD and possible lupus rela delfina interstitial lung disease. Improved with Lasix. Change to Lasix to PO, get Echo and cardiology evaluation Acute on chronic hypoxic and hypercapnic respiratory failure briefly requiring BiPAP support in ICU, now titrated down to nasal cannula supplemental oxygen. Wean as tolerated COPD and likely lupus related ILD. Treated with high dose steroid in ICU and on lower dose of IV solumdedrol 40 qid, change to prednisone Empirically covered for possible atypical pneumonia with doxycycline. Discussed with daughter at bedside
[2020-12-12] MEDS: dilTIAZem HCL 50 MG/10 ML VIAL 10 MG IVPUSH ×2 (10:29→13:42)
--- NOTE | 2020-12-12 10:36 | ECG_ITS ---
Test Reason : RHYTHM CHECK Blood Pressure : / mmHG Vent. Rate : 124 BPM Atrial Rate : 000 BPM P-R Int : 000 ms QRS Dur : 144 ms QT Int : 362 ms P-R-T Axes : 249 132 -37 degrees QTc Int : 520 ms Atrial fibrillation Right bundle branch block Septal infarct , age undetermined Possible Lateral infarct , age undetermined Inferior infarct , age undetermined Abnormal ECG When compared to the previous EKG of No significant changes seen Referred By: Colby Castañeda Electronically Signed By:Liang Vogt
--- NOTE | 2020-12-12 11:33 | P.CONCA_ITS ---
History of Present Illness History of Present Illness Date of Service: 12/12/20 [facility] Consult reason: atrial fibrillation Chief complaint: Atrial flutter Narrative: Pleasant 80-year-old female with background history of respiratory failure, right heart failure, coronary artery disease which was deemed inopera ble/intervene able at [facility] as well as [place], COPD and hypertension. She also has lupus erythematosus. We have been consulted because she developed tachycardia this morning. She is asymptomatic and does not have any palpitations. Telemetry review showed fairly fast tachycardia close to 200 beats per minute. She has a known bundle-branch block at baseline. The differential is likely atrial flutter versus AFib. She has pulmonary fibrosis and COPD. She also has right ventricular failure. She has significant lower extremity edema at this point. It also appears that she had bradycardia while she was in the ICU and her beta leela were held. [facility]LY [facility] Past Medical History Medical History Aortic stenosis CAD (coronary artery disease) Chronic stable angina COPD (chronic obstructive pulmonary disease) Epilepsy HTN (hypertension) Hypercholesterolemia Interstitial lung disease Osteoarthritis Raynauds phenomenon Squamous carcinoma Stenosis of right carotid artery Family History Family History Father COPD (chronic obstructive pulmonary disease) CVD (cardiovascular disease) Mother ESRD (end stage renal disease) CVD (cardiovascular disease) Brother No problems noted. Brother No problems noted. Daughter No problems noted. Son No problems noted. Sister No problems noted. Surgical History Surgical History H/O colonoscopy History of ankle surgery History of bunionectomy History of cardiac cath History of carotid endarterectomy Social History Social History Household Members: Spouse Housing: House Are you a primary acute care certified nursing assistant to a significant other at home: No Do you presently have visiting nurse or other home services: No Unable to assess alcohol history related to: Unable to respond Alcohol intake: never Patient Tobacco Use Status: Never used Tobacco Second Hand Smoke Exposure: Yes Use of substances other than those prescribed or required for medical reasons: Unable to respond Currently Displaying Signs/Symptoms of Drug Intoxication Withdrawal: No Advance Directives: No Advance Directives Information Provided: Yes Do you have thoughts of harming others: None Do you have a plan to hurt others: No Plan Recently lost weight without trying: Unsure service: No Current occupational status: retired Gender identity: female Meds Allergies Allergy/AdvReac Type Severity Reaction Status Date / Time morphine [MORPHINE] Allergy Severe NAUSEA & Verified 11/07/20 11:39 VOMITING, vomiting Active Medications: Current Medications Generic Name Dose Route Start Last Admin Trade Name Freq PRN Reason Stop Dose Admin Albuterol/Ipratropium 3 ml 12/07/20 21:00 12/12/20 10:50 Albuterol/Iprat 2.5/0.5mg 3 Ml Ampul.Neb INHALE Not Given 5XD SUNNY Apixaban 5 mg 12/12/20 11:00 Apixaban 5 Mg Tablet PO BID SUNNY Dextrose 25 gm 12/09/20 20:12 12/09/20 21:51 Dextrose 50 % 25 Gm/50 Ml Vial IVPUSH 25 gm ONCE PRN Administration glucose <60 Dextrose 25 gm 12/09/20 20:58 12/10/20 18:44 Dextrose 50 % 25 Gm/50 Ml Vial IVPUSH 25 gm Q20M PRN Administration glucose <60 Furosemide 20 mg 12/11/20 09:00 12/12/20 08:13 Furosemide 20 Mg/2 Ml Vial IVPUSH 20 mg Q12H SUNNY Administration Protocol Doxycycline Hyclate 100 mg/ 250 mls @ 166.67 mls/hr 12/08/20 07:45 12/12/20 08:13 Sodium Chloride IV 166.67 mls/hr Q12H SUNNY Administration Methylprednisolone Sodium Succinate 40 mg 12/11/20 18:00 12/12/20 11:11 Methylprednisolone Sod Succ 40 Mg/Ml Vial IVPUSH 40 mg Q6H SUNNY Administration Pharmacy Consult 1 each 12/07/20 12:34 Consult Rx Perform Med Rec MISCELLANE ONCE PRN Consult order Home Medications Medication Instructions Recorded Confirmed Last Taken Type aspirin 81 mg tablet,delayed 81 mg PO DAILY 04/12/20 12/07/20 12/07/20 History release loratadine 10 mg tablet 10 mg PO DAILY 04/12/20 12/07/20 12/07/20 History metoprolol succinate 100 mg 100 mg PO DAILY 04/12/20 12/07/20 12/07/20 History tablet,extended release 24 hr fluticasone fur. 100 mcg-umeclid 1 inh INHALATION DAILY 04/24/20 12/07/20 12/07/20 History 62.5 mcg-vilant 25 mcg inhalat.powder phenobarbital 100 mg tablet 100 mg PO BEDTIME 05/09/20 12/07/20 12/06/20 History albuterol sulfate 2.5 mg INHALATION TID PRN 12/07/20 12/07/20 12/07/20 History atorvastatin 80 mg PO BEDTIME 12/07/20 12/07/20 12/06/20 History benzonatate 1 cap PO TID PRN 12/07/20 12/07/20 Unknown History ezetimibe [Zetia] 10 mg PO BEDTIME 12/07/20 12/07/20 12/06/20 History gabapentin 100 mg PO TID 12/07/20 12/07/20 12/07/20 History meclizine [Dramamine Less Drowsy] 25 mg PO DAILY PRN 12/07/20 12/07/20 12/07/20 History Physical Exam Vital Signs: Vital Signs: Last Vital Signs Temp 98 F 12/12/20 11:20 Pulse 195 H 12/12/20 10:29 Resp 22 H 12/12/20 06:59 BP 119/70 12/12/20 10:56 Pulse Ox 90 L 12/12/20 11:20 Body Mass Index 31.4 GENERAL APPEARANCE: in no acute distress, pleasant. SKIN: no suspicious lesions, warm and dry. HEART: no murmurs, regular tachycardia, left parasternal heave. LUNGS: clear to auscultation bilaterally. ABDOMEN: soft, nontender. EXTREMITIES: 2+ edema right more the left lower extremity. PERIPHERAL PULSES: equal. NEUROLOGIC: No gross deficits, AAO X 3 Results Labs and Meds Result diagrams: 12/12/20 05:49 12/12/20 05:49 Lab results: Laboratory Results - last 24 hr 12/11/20 12/11/20 12/11/20 11:53 16:46 20:42 WBC RBC Hgb Hct MCV MCH MCHC RDW Plt Count MPV Immature Gran % (Auto) Neut % (Auto) Lymph % (Auto) [place] % (Auto) Eos % (Auto) Baso % (Auto) Lymph # (Auto) [place] # (Auto) Eos # (Auto) Baso # (Auto) Abs Immat Gran (auto) Absolute Neuts (auto) Absolute Nucleated RBC Nucleated RBC % (auto) Smear Tech's Comments VBG pH VBG pCO2 VBG pO2 VBG HCO3 VBG O2 Saturation VBG Base Excess Sodium Potassium Chloride Carbon Dioxide Anion Gap BUN Creatinine Estim Creat Clear Calc Estimated GFR POC Glucose 146 H 154 H < 10 L* Random Glucose Calcium Phosphorus Magnesium Total Bilirubin AST ALT Alkaline Phosphatase Total Protein Albumin 12/11/20 12/12/20 12/12/20 20:43 00:47 05:49 WBC 12.4 H RBC 3.74 L Hgb 11.7 L Hct 36.8 L MCV 98.4 H MCH 31.3 MCHC 31.8 RDW 14.6 Plt Count 153 L MPV 9.0 L Immature Gran % (Auto) 0.4 Neut % (Auto) 91.3 H Lymph % (Auto) 2.5 L [place] % (Auto) 5.7 Eos % (Auto) 0.0 Baso % (Auto) 0.1 Lymph # (Auto) 0.3 L [place] # (Auto) 0.7 Eos # (Auto) 0.0 Baso # (Auto) 0.0 Abs Immat Gran (auto) 0.05 H Absolute Neuts (auto) 11.3 H Absolute Nucleated RBC 0.000 Nucleated RBC % (auto) 0.0 Smear Tech's Comments VERIFIED VBG pH VBG pCO2 VBG pO2 VBG HCO3 VBG O2 Saturation VBG Base Excess Sodium Potassium Chloride Carbon Dioxide Anion Gap BUN Creatinine Estim Creat Clear Calc Estimated GFR POC Glucose 122 H 201 H Random Glucose Calcium Phosphorus Magnesium Total Bilirubin AST ALT Alkaline Phosphatase Total Protein Albumin 12/12/20 12/12/20 12/12/20 05:49 05:50 08:49 WBC RBC Hgb Hct MCV MCH MCHC RDW Plt Count MPV Immature Gran % (Auto) Neut % (Auto) Lymph % (Auto) [place] % (Auto) Eos % (Auto) Baso % (Auto) Lymph # (Auto) [place] # (Auto) Eos # (Auto) Baso # (Auto) Abs Immat Gran (auto) Absolute Neuts (auto) Absolute Nucleated RBC Nucleated RBC % (auto) Smear Tech's Comments VBG pH 7.39 VBG pCO2 73 VBG pO2 58 VBG HCO3 45 H VBG O2 Saturation 88.0 VBG Base Excess 17.0 Sodium 136 Potassium 4.4 Chloride 92 L Carbon Dioxide 38 H Anion Gap 10 L BUN 24 H Creatinine 0.69 Estim Creat Clear Calc 77.9 Estimated GFR > 60 POC Glucose Random Glucose 140 H Calcium 8.3 L Phosphorus 3.1 Magnesium 2.0 2.0 Total Bilirubin 0.8 AST 61 H ALT 159 H Alkaline Phosphatase 92 D Total Protein 6.4 L Albumin 4.0 D Imaging Radiologist's impression: Impressions Chest X-Ray 12/12/20 06:00 IMPRESSION: Low lung volumes. Interstitial lung disease. No change from previous exams. Assessment and Plan (1) Right heart failure: Status: Acute (2) Acute on chronic respiratory failure with hypoxia and hypercapnia: Status: Acute (3) Atrial flutter: Status: Acute Pleasant 80-year-old female with complex medical issues including coronary artery disease which is inoperable/intervene able, COPD, pulmonary fibrosis, right heart failure. She has right bundle-branch block at baseline. She has likely atrial flutter versus atrial fibrillation at this point. She has been quite fast and is difficult to be sure about it right now. She had bradycardia while she was in the ICU. I think she should not get any Cardizem. Resume metoprolol at 25 mg twice a day. Based on his positive will titrate that. Agree with IV diuretics. I have discussed with the patient and her daughter that previously patient had bradycardia in the ICU. If she acts like tachy-roxi syndrome then we may have to consider pacemaker. With her multiple comorbidities I have explained to the patient and the daughter that it will not change her quality of life or longevity. We will discuss further if pacemaker is required at some stage. Thank you for allowing me to participate in the care of your patient. Please feel free to contact me if you have any questions. Procedures Date of Service Date of Service: 12/12/20
[2020-12-12] MEDS: Apixaban 5 MG TABLET PO ×2 (11:54→20:09)
[2020-12-12] MEDS: Metoprolol Tartrate 25 MG TABLET PO ×2 (11:54→20:04)
--- NOTE | 2020-12-12 15:32 | MHC.PIE ---
P: appoximately at 0900, pt's HR gradually increased up to 150s-160's. pt asymptomatic. HR got as high as 190s. I: covering md notified. ekg obtained. 10 mg cardizem iv ordered and given. cardiology consult ordered. E: pt's HR came down to 112. pt also started on metoprolol tartrate 25 mg bid.
[2020-12-12 16:05] LABS: Glucose, Whole Blood 273 mg/dL (60-115)
[2020-12-12] MEDS: Digoxin 0.5 MG/2 ML AMPUL 0.25 MG IVPUSH (18:40)
[2020-12-12 20:07] LABS: Glucose, Whole Blood 216 mg/dL (60-115)
[2020-12-13] VITALS (15 sets, daily range): BP systolic 129–177; BP diastolic 82–109; PULSE 98–134; RESP 18–20; TEMP 36.2–36.7; O2SAT 86–94; BMI 27.3
[2020-12-13] MEDS: Metoprolol Tartrate 5 MG/5 ML VIAL IVPUSH ×3 (00:22→23:10)
[2020-12-13] MEDS: methylPREDNISolone Sod Succ 40 MG/ML VIAL IVPUSH ×3 (00:22→13:22)
[2020-12-13] MEDS: Digoxin 0.5 MG/2 ML AMPUL 0.25 MG IVPUSH (01:56)
[2020-12-13 07:19] LABS: Glucose, Whole Blood 126 mg/dL (60-115)
[2020-12-13] MEDS: Doxycycline Hyclate 100 MG in 0.9 % Sodium Chloride 250 ML 166.67 MG IV ×2 (08:06→21:43)
[2020-12-13] MEDS: Furosemide 20 MG/2 ML VIAL IVPUSH (08:06)
[2020-12-13] MEDS: Metoprolol Tartrate 25 MG TABLET PO ×2 (08:06→15:48)
[2020-12-13] MEDS: Apixaban 5 MG TABLET PO ×2 (08:08→21:44)
[2020-12-13 10:57] LABS: Glucose, Whole Blood 223 mg/dL (60-115)
[2020-12-13] MEDS: Albuterol/Iprat 2.5/0.5MG 3 ML AMPUL.NEB INHALE ×3 (11:05→21:12)
--- NOTE | 2020-12-13 12:11 | MHC.CM.PN ---
Female 80 DX AFIB/FLUTTER COPD. [facility] referrals have been sent. The Pt is interested in [facility] acute [facility]. T/W explained the differance between [facility] and acute rehab. She unerstands that a PT eval will assist with determination of DISPO. CM will follow.
--- NOTE | 2020-12-13 14:00 | MHC.CLN ---
F/U PO INTAKE 25/50% OF C/L DIET DAY 7 OF INADEQUATE NUTRITION RECOMMEND ADVANCING DIET TO REGULAR MONITOR PO INTAKE CLOSELY
--- NOTE | 2020-12-13 14:59 | HO.PM.IMPN ---
Subjective Subjective Date of Service: 12/13/20 Interval History: Seen in f/u for resp failure treated in ICU, now in AFIB with RVR new, some shortness of bereath and overall not feeling well. Physical Exam Vital Signs: Vital Signs: Last Vital Signs Temp 97.6 F 12/13/20 11:04 Pulse 122 H 12/13/20 11:05 Resp 18 12/13/20 11:04 BP 164/88 H 12/13/20 11:04 Pulse Ox 92 12/13/20 11:04 Body Mass Index 27.3 Const: Other: General: AO X 3, no acute distress Resp: CTA bilateral CVS: iregular iregu, 2 to 3 + pitting kusum in feet/legs GI: +BS, NT, no distention Skin: No rash Neuro: motor grossly intact Psych: appropriate affect Objective Data Current Medications Generic Name Dose Route Start Last Admin Trade Name Freq PRN Reason Stop Dose Admin Albuterol/Ipratropium 3 ml 12/07/20 21:00 12/13/20 14:57 Albuterol/Iprat 2.5/0.5mg 3 Ml Ampul.Neb INHALE 3 ml 5XD SUNNY Administration Apixaban 5 mg 12/12/20 11:00 12/13/20 08:08 Apixaban 5 Mg Tablet PO 5 mg BID SUNNY Administration Dextrose 25 gm 12/09/20 20:12 12/09/20 21:51 Dextrose 50 % 25 Gm/50 Ml Vial IVPUSH 25 gm ONCE PRN Administration glucose <60 Dextrose 25 gm 12/09/20 20:58 12/10/20 18:44 Dextrose 50 % 25 Gm/50 Ml Vial IVPUSH 25 gm Q20M PRN Administration glucose <60 Furosemide 20 mg 12/11/20 09:00 12/13/20 08:06 Furosemide 20 Mg/2 Ml Vial IVPUSH 20 mg Q12H SUNNY Administration Protocol Doxycycline Hyclate 100 mg/ 250 mls @ 166.67 mls/hr 12/08/20 07:45 12/13/20 10:00 Sodium Chloride IV Infused Q12H SUNNY Infusion Methylprednisolone Sodium Succinate 40 mg 12/11/20 18:00 12/13/20 13:22 Methylprednisolone Sod Succ 40 Mg/Ml Vial IVPUSH 40 mg Q6H SUNNY Administration Metoprolol Tartrate 25 mg 12/13/20 15:00 Metoprolol Tartrate 25 Mg Tablet PO TID [facility] Protocol Pharmacy Consult 1 each 12/07/20 12:34 Consult Rx Perform Med Rec MISCELLANE ONCE PRN Consult order Labs CBC & Chem 7: 12/12/20 05:49 12/12/20 05:49 Microbiology Microbiology Results: Microbiology 12/07/20 16:51 Blood - Venous Blood Culture - Final No growth after 5 days. 12/07/20 12:53 Blood - Venous Blood Culture - Final No growth after 5 days. 12/07/20 16:23 Urine [place] Urine Culture - Final No growth. Assessment and Plan (1) Atrial flutter: Status: Acute (2) Right heart failure: Status: Acute Assessment and Plan: 80-year-old lady with underlying history of CAD, aortic stenosis, right heart failure, COPD, hypertension, lupus admitted on 12/07/2020 with dyspnea and bradycardia/hypotension requiring dopamine support. She was treated with systemic corticosteroids for possible exacerbation of lupus associated ILD, also IV diuresis, and doxycycline with significant improvement in her FiO2 requirements. And now in AFIB with RVR, no prior history 1. New onset of AFIB with RVR--persistent tachycardia with cardizem, digoxine and metoprolol yesterday. Cardiology is advising against use of cardizem as may exacerbation heart failurea continue oral metorpolol. She had episodes of bradycardia while in ICU thus putting her at risk for tachybrady syndrome that could necesitate pace maker. Cardiology has communicated with patient and family and there is no inclination to head in direction of pace maker at this time. Right heart failure, likely secondary to underlying COPD and possible lupus related interstitial lung disease. Improved with Lasix. Continue Lasix Acute on chronic hypoxic and hypercapnic respiratory failure briefly requiring BiPAP support in ICU, now titrated down to nasal cannula supplemental oxygen. Wean as tolerated COPD and likely lupus related ILD. Treated with high dose steroid in ICU and on lower dose of IV solumdedrol 40 qid, change to prednisone Empirically covered for possible atypical pneumonia with doxycycline. Patient doesn't want anymore agresive intervention including pace maker and ask to see hospice, referal made. Daughter was at bedside
[2020-12-13 16:13] LABS: Glucose, Whole Blood 154 mg/dL (60-115)
[2020-12-13] MEDS: Furosemide 40 MG/4 ML VIAL IVPUSH (16:36)
--- NOTE | 2020-12-13 16:36 | PM.PNCARD ---
Subjective Subjective Date of Service: 12/13/20 Interval history: Short of breath. Fatigue. We had discussion yesterday about palliative care/hospice. She wishes to see hospice. Physical Exam Vital Signs: Last Vital Signs Temp 97.5 F 12/13/20 15:13 Pulse 129 H 12/13/20 15:48 Resp 19 12/13/20 15:13 BP 169/97 H 12/13/20 15:48 Pulse Ox 92 12/13/20 15:13 Body Mass Index 27.3 GENERAL APPEARANCE: Distressed, short of breath. SKIN: no suspicious lesions, warm and dry. HEART: no murmurs, regular tachycardia, left parasternal heave. LUNGS: clear to auscultation bilaterally. ABDOMEN: soft, nontender. EXTREMITIES: 2+ edema right more the left lower extremity. PERIPHERAL PULSES: equal. 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 She developed atrial flutter. She was started on metoprolol but she continues to be quite tachycardic. She is dyspneic and is struggling. We discussed about hospice/palliative care yesterday and she wishes to see hospice. In the meantime I think we should give her 40 mg IV b.i.d. Lasix to see if diuresis helps her breathing somewhat. Her lung exam is significantly abnormal at baseline due to pulmonary fibrosis and she has crackles everywhere. We can see if diuresing her helps her symptoms to some extent. I think is quite reasonable to consider palliative care in her due to multiple complex issues with no good treatment options. Thank you for allowing me to participate in the care of your patient. Please feel free to contact me if you have any questions. Fall Risk Details Current Medications: Current Medications Generic Name Dose Route Start Last Admin Trade Name Fuadq PRN Reason Stop Dose Admin Albuterol/Ipratropium 3 ml 12/07/20 21:00 12/13/20 14:57 Albuterol/Iprat 2.5/0.5mg 3 Ml Ampul.Neb INHALE 3 ml 5XD SUNNY Administration Apixaban 5 mg 12/12/20 11:00 12/13/20 08:08 Apixaban 5 Mg Tablet PO 5 mg BID SUNNY Administration Dextrose 25 gm 12/09/20 20:12 12/09/20 21:51 Dextrose 50 % 25 Gm/50 Ml Vial IVPUSH 25 gm ONCE PRN Administration glucose <60 Dextrose 25 gm 12/09/20 20:58 12/10/20 18:44 Dextrose 50 % 25 Gm/50 Ml Vial IVPUSH 25 gm Q20M PRN Administration glucose <60 Furosemide 40 mg 12/13/20 17:00 12/13/20 16:36 Furosemide 40 Mg/4 Ml Vial IVPUSH 40 mg Q12H SUNNY Administration Protocol Doxycycline Hyclate 100 mg/ 250 mls @ 166.67 mls/hr 12/08/20 07:45 12/13/20 10:00 Sodium Chloride IV Infused Q12H SUNNY Infusion Metoprolol Tartrate 25 mg 12/14/20 09:00 Metoprolol Tartrate 25 Mg Tablet PO BID [facility] Protocol Pharmacy Consult 1 each 12/07/20 12:34 Consult Rx Perform Med Rec MISCELLANE ONCE PRN Consult order Prednisone 50 mg 12/14/20 09:00 Prednisone 10 Mg Tablet PO DAILY [facility] Time Spent With Patient Time: Total time spent is greater than 50% in coordination of care (as documented) at patient's floor/unit and/or counseling patient: Time with patient: 25 - 35 minutes Procedures Date of Service Date of Service: 12/13/20
[2020-12-13 20:09] LABS: Glucose, Whole Blood 189 mg/dL (60-115)
[2020-12-14] VITALS (18 sets, daily range): BP systolic 96–172; BP diastolic 63–110; PULSE 122–136; RESP 18–40; TEMP 36–37.1; O2SAT 91–99; BMI 27.3
[2020-12-14] MEDS: Furosemide 40 MG/4 ML VIAL IVPUSH ×2 (04:52→17:47)
[2020-12-14] MEDS: Metoprolol Tartrate 5 MG/5 ML VIAL IVPUSH ×2 (05:09→13:52)
[2020-12-14 07:20] LABS: Glucose, Whole Blood 136 mg/dL (60-115)
[2020-12-14] MEDS: Apixaban 5 MG TABLET PO (07:58)
[2020-12-14] MEDS: predniSONE 10 MG TABLET 50 MG PO (07:58)
[2020-12-14] MEDS: Doxycycline Hyclate 100 MG in 0.9 % Sodium Chloride 250 ML 166.67 MG IV ×2 (07:58→19:57)
[2020-12-14] MEDS: Metoprolol Tartrate 25 MG TABLET PO (07:59)
[2020-12-14] MEDS: Albuterol/Iprat 2.5/0.5MG 3 ML AMPUL.NEB INHALE ×3 (10:30→18:23)
[2020-12-14 11:03] LABS: Glucose, Whole Blood 181 mg/dL (60-115)
--- NOTE | 2020-12-14 13:14 | MHC.CLN ---
F/U SPOKE WITH NURSE REGARDING FLUCTUATIONS IN PT'S WT NSG REPORTS PTS WT TODAY AND CONFIRMED 79.2KG ACCURATE PT WEIGHED USING BEDSCALE FOLLOWING
--- NOTE | 2020-12-14 13:33 | MHC.CM.PN ---
Female 80 DX Aflutter A Hospice informational meeting has been performed. A referral to Financial services has been made. The Pt does not have a secondary payor source. Referrals have been sent. CM will continue to follow.
[2020-12-14 16:02] LABS: Glucose, Whole Blood 167 mg/dL (60-115)
[2020-12-14] MEDS: LORazepam 2 MG/ML VIAL 0.5 MG IVPUSH (16:12)
[2020-12-14] MEDS: ondansetron HCL 4 MG/2 ML VIAL IVPUSH (16:12)
[2020-12-14] MEDS: Morphine Sulfate 2 MG/ML CARTRIDGE IVPUSH ×3 (17:47→22:46)
--- NOTE | 2020-12-14 17:58 | HO.PM.IMPN ---
Subjective Subjective Date of Service: 12/14/20 Interval History: Seen in f/u for resp failure treated in ICU, now in AFIB with RVR , patient is more lethargic today, increasing work of breathing and verbalized that she doesn't want anything more done and wants to go home interpreted by daughter at bedside that she ready Review of Systems Lethargic, slow to repond, Physical Exam Vital Signs: Vital Signs: Last Vital Signs Temp 98.6 F 12/14/20 15:25 Pulse 130 H 12/14/20 15:25 Resp 35 H 12/14/20 15:25 BP 165/110 H 12/14/20 15:25 Pulse Ox 91 L 12/14/20 15:25 Body Mass Index 27.3 Const: Other: General: somnolent, arousable, seems sob Resp: tachypnic, increasing wob compare to [place] CVS: iregular iregu, 2 to 3 + pitting kusum in feet/legs GI: +BS, NT, no distention Skin: No rash Neuro: motor grossly intact Psych: flat affect Objective Data Current Medications Generic Name Dose Route Start Last Admin Trade Name Freq PRN Reason Stop Dose Admin Albuterol/Ipratropium 3 ml 12/07/20 21:00 12/14/20 15:14 Albuterol/Iprat 2.5/0.5mg 3 Ml Ampul.Neb INHALE 3 ml 5XD SUNNY Administration Apixaban 5 mg 12/12/20 11:00 12/14/20 07:58 Apixaban 5 Mg Tablet PO 5 mg BID SUNNY Administration Dextrose 25 gm 12/09/20 20:12 12/09/20 21:51 Dextrose 50 % 25 Gm/50 Ml Vial IVPUSH 25 gm ONCE PRN Administration glucose <60 Dextrose 25 gm 12/09/20 20:58 12/10/20 18:44 Dextrose 50 % 25 Gm/50 Ml Vial IVPUSH 25 gm Q20M PRN Administration glucose <60 Furosemide 40 mg 12/13/20 17:00 12/14/20 17:47 Furosemide 40 Mg/4 Ml Vial IVPUSH 40 mg Q12H SUNNY Administration Protocol Doxycycline Hyclate 100 mg/ 250 mls @ 166.67 mls/hr 12/08/20 07:45 12/14/20 10:13 Sodium Chloride IV Infused Q12H SUNNY Infusion Lorazepam 0.5 mg 12/14/20 15:58 12/14/20 16:12 Lorazepam 2 Mg/Ml Vial IVPUSH 0.5 mg Q6H PRN Administration Anxiety Metoprolol Tartrate 25 mg 12/14/20 09:00 12/14/20 07:59 Metoprolol Tartrate 25 Mg Tablet PO 25 mg BID SUNNY Administration Protocol Metoprolol Tartrate 5 mg 12/13/20 22:51 12/14/20 13:52 Metoprolol Tartrate 5 Mg/5 Ml Vial IVPUSH 5 mg Q6H PRN Administration HR abover 120 Morphine Sulfate 2 mg 12/14/20 15:50 12/14/20 17:47 Morphine Sulfate 2 Mg/Ml [place] IVPUSH 2 mg Q2H PRN Administration comfort Ondansetron HCl 4 mg 12/14/20 15:58 12/14/20 16:12 Ondansetron Hcl 4 Mg/2 Ml Vial IVPUSH 4 mg Q8H PRN Administration Nausea and Vomiting Pharmacy Consult 1 each 12/07/20 12:34 Consult Rx Perform Med Rec MISCELLANE ONCE PRN Consult order Prednisone 50 mg 12/14/20 09:00 12/14/20 07:58 Prednisone 10 Mg Tablet PO 50 mg DAILY SUNNY Administration Labs CBC & Chem 7: 12/12/20 05:49 12/12/20 05:49 Microbiology Microbiology Results: Microbiology 12/07/20 16:51 Blood - Venous Blood Culture - Final No growth after 5 days. 12/07/20 12:53 Blood - Venous Blood Culture - Final No growth after 5 days. 12/07/20 16:23 Urine [place] Urine Culture - Final No growth. Assessment and Plan (1) Atrial flutter: Status: Acute (2) Right heart failure: Status: Acute Assessment and Plan: 80-year-old lady with underlying history of CAD, aortic stenosis, right heart failure, COPD, hypertension, lupus admitted on 12/07/2020 with dyspnea and bradycardia/hypotension requiring dopamine support. She was treated with systemic corticosteroids for possible exacerbation of lupus associated ILD, also IV diuresis, and doxycycline with significant improvement in her FiO2 requirement but then developped AFIB with RVR and overall has continue to decline and has as to be on hospice and doesn't want any more treatment. This was discuss with patient and daughter, hospice consuted obtained and arrangement will be for possible discharge home or SNF in the meantime will concentrate on comfort treatment, morphine and ativen as needed for comfort. No lab check, no IVF, dc non-comfort medication.s
[2020-12-14 20:24] LABS: Glucose, Whole Blood 146 mg/dL (60-115)
[2020-12-15] MEDS: ondansetron HCL 4 MG/2 ML VIAL IVPUSH (00:36)
[2020-12-15 02:00] VITALS: RESP 22
[2020-12-15] MEDS: Morphine Sulfate 2 MG/ML CARTRIDGE IVPUSH ×2 (02:00→04:06)
[2020-12-15 03:41] VITALS: BP 110/47; PULSE 125; RESP 22; TEMP 36.6; O2SAT 98
[2020-12-15 04:06] VITALS: RESP 18
--- NOTE | 2020-12-15 07:02 | PM.EVENT ---
Event Note Date of Service: 12/15/20 Event Note: Pt passed at 6:15 am
--- NOTE | 2020-12-15 07:33 | PC.NURSE ---
Dr Aguillon pronounced time of at 0615 this morning. I notified the daughter Leidy, she wishes to come in to see the patient. Theyd like to use [facility] in [facility]. I notified [facility], and spoke with [facility] who stated theyre declining donation Ref# [id number]
--- NOTE | 2020-12-15 17:58 | PM.DDS ---
Discharge Sum: Prov Provider Primary care physician: Adeola Menchaca MD Discharge Sum: Diag Contributing Factors (1) Atrial flutter: (2) Right heart failure: (3) Acute metabolic encephalopathy: (4) Acute on chronic respiratory failure with hypoxia and hypercapnia: (5) Hypoxia: (6) Hypoglycemia: (7) Weakness: (8) Leukocytosis: (9) Hyponatremia: (10) Hypochloremia: (11) Hyperkalemia: (12) Elevated LFTs: (13) Osteoporosis: (14) SOB (shortness of breath) on exertion: (15) CAD (coronary artery disease): (16) COPD (chronic obstructive pulmonary disease): (17) HTN (hypertension): (18) Lupus (systemic lupus erythematosus): Discharge Sum: Summary Date and Time Date of admission: 12/07/20 17:50 Date of : 12/15/20 Time of : 06:15 Summary Details: 80-year-old lady with underlying history of CAD, aortic stenosis, right heart failure, COPD, hypertension, lupus admitted on 12/07/2020 with dyspnea and bradycardia/hypotension requiring dopamine support. She was treated with systemic corticosteroids for possible exacerbation of lupus associated ILD, also IV diuresis, and doxycycline with significant improvement in her FiO2 requirement but then developped AFIB with RVR and overall has continue to decline and asls to be on hospice and doesn't want any more treatment. This was discuss with patient and daughter, hospice consuted and status changed to comfort measures only as was decompensating rapidly with decrease responsiveness, increasing work of breathing, was given ativan and morphine for comfort and within 24 of comfort status. Additional Data Attending physician: Colby Castañeda MD
== END 2020-12-15 09:51 | disposition expired | DRG 291 ==
LOC: HO.ED 12:34 → HO.EDOVER 18:27 → HO.ICU 19:30 → HO.IMC 12-11 16:07
PROVIDERS: Internal Medicine; Internal Medicine Pulmonary Disease; Nurse Practitioner Family; Physician Assistant; Admitting Provider Internal Medicine Cardiovascular Disease; Emergency Provider Emergency Medicine; PCP Internal Medicine; Visit Provider Internal Medicine
DX: I11.0 Hypertensive heart disease with heart failure (principal); J96.21 Acute and chronic respiratory failure with hypoxia; G93.41 Metabolic encephalopathy; J96.22 Acute and chronic respiratory failure with hypercapnia; I48.92 Unspecified atrial flutter; E87.1 Hypo-osmolality and hyponatremia; M32.13 Lung involvement in systemic lupus erythematosus; I25.10 Atherosclerotic heart disease of native coronary artery without angina pectoris; I48.91 Unspecified atrial fibrillation; J44.9 Chronic obstructive pulmonary disease, unspecified; M81.0 Age-related osteoporosis without current pathological fracture; I50.810 Right heart failure, unspecified; E87.5 Hyperkalemia; M25.50 Pain in unspecified joint; Z20.822 Contact with and (suspected) exposure to COVID-19; Z79.51 Long term (current) use of inhaled steroids; Z79.82 Long term (current) use of aspirin; Z79.899 Other long term (current) drug therapy; Z51.5 Encounter for palliative care
CPT/HCPCS: 36415; 70450; 71045; 71046; 71275; 80048; 80053; 80076; 81001; 81003; 82550; 82947; 83605; 83735; 83880; 84100; 84484; 85025; 85379; 85610; 85730; 87040; 87086; 87635; 93005; 93970; 94640; 94660; 99285; C1758; J0610; J0692; J0696; J1160; J1265; J1885; J1940; J2060; J2270; J2405; J2920; J2930; J3475; P9047; Q9967